=== PATIENT | male | born 1980 | race Caucasian/White ===

== ENCOUNTER 2021-06-28 06:40 | Emergency (ER) | payer MEDICAID, SELFPAY ==
[2021-06-28 06:51] VITALS: BP 152/110; PULSE 73; RESP 16; TEMP 36.9; O2SAT 98; BMI 27.7
--- NOTE | 2021-06-28 07:41 | ED_ITS ---
HPI - General Adult General Chief complaint: General Medical Stated complaint: body aches Time Seen by Provider: 06/28/21 07:37 Source: patient Mode of arrival: ambulatory Limitations: no limitations History of Present Illness MD complaint: body aches, headaches, doesn't feel well Onset (ago): day(s) (1) Radiation: non-radiation Severity: moderate Quality: aching Pain Consistency: constant Relieving factors: none Exacerbating factors: none Associated symptoms: denies other symptoms, headaches and malaise Treatments prior to arrival: other (mucinex) Related Data Previous Rx's Medication Instructions Recorded ondansetron 4 mg disintegrating 4 mg PO Q8H PRN #20 tab 06/28/21 tablet oseltamivir 75 mg capsule (Tamiflu) 75 mg PO BID 5 Days #9 cap 06/28/21 Allergies Allergy/AdvReac Type Severity Reaction Status Date / Time aspirin [ASPIRIN] Allergy Unknown UNSURE OF Unverified 12/19/19 14:59 RX Review of Systems Review of Systems: Constitutional :pos Fever, pos Chills, pos Fatigue, No Malaise ENT/Mouth : No sore throat, No Rhinorrhea Eyes: No Eye Pain, No Swelling, No Redness Cardiovascular : No Chest Pain, No SOB Respiratory : No Cough, No Sputum, No Wheezing Gastrointestinal : No Nausea, No Vomiting, No Diarrhea, No abdominal Pain Genitourinary : No Dysuria, No Urinary Frequency, No Hematuria, Musculoskeletal : No joint pain, pos Myalgias, No Joint Swelling Skin : No Skin Lesions, No rash Neuro : No Weakness, No Numbness, No Dizziness, No Headache Psych : No Anxiety/Panic, No Depression Heme/Lymph: No Bruising, No Bleeding,No Lymphadenopathy Endocrine : No Polyuria, No Polydipsia All other systems reviewed and are negative [facility] Past Medical History Attestation statement: The following information was validated with the patient. Medical History HTN (hypertension) Social History Social History (Updated 06/28/21 @ 08:09 by Mirta Babcock DO) Patient Tobacco Use Status: Never used Tobacco Use of substances other than those prescribed or required for medical reasons: No Advance Directives: No Advance Directives Information Provided: No Physical Exam ED Vital Signs: Vital Signs - 24 hr 06/28/21 06:51 06/28/21 08:04 Temperature 98.5 F 98.1 F Pulse Rate 73 65 Respiratory Rate 16 16 Blood Pressure 152/110 H 153/96 H Pulse Oximetry 98 99 BMI result Body Mass Index 27.7 Appearance: Alert. Oriented X3. No acute distress. Eyes: Pupils equal, round and reactive to light. ENT: Pharynx normal. Neck: Normal inspection. Neck supple. no meningeal signs CVS: Normal heart rate and rhythm. Pulses normal. Respiratory: No respiratory distress. Breath sounds normal. Abdomen: Soft and non-tender. Skin: Skin warm and dry. Normal skin color. Normal skin turgor. Extremities: No lower extremity edema. No calf ttp Neuro: Oriented X 3. No motor deficit. No sensory deficit. Course Course Course Narrative: + for flu - within window will start tamiflu aware of GI side effects patient very upset he is here, his IV is done, states he can do this at home. Medical Decision Making MDM Narrative Medical decision making narrative: 40 yo male hx of HTN here with body aches and just doesn't feel well. Denies sick contacts he is vaccinated against COVID. He denies trauma new medications/drug abuse/insect bites/travel. He just describes a viral like syndrome. At this time will obtain labs, CPK, hydrate, PO tylenol/flexeril, COVID/flu swabs. Dispo per results and findings. Lab Data Result diagrams: 06/28/21 08:16 06/28/21 08:16 Labs: Lab Results 06/28/21 06/28/21 06/28/21 Range/Units 08:16 08:16 08:16 WBC 5.3 (4.8-10.8) X10*3/uL RBC 5.13 (4.60-5.80) X10*6/uL Hgb 15.8 (14.0-18.0) g/dl Hct 44.7 (42.0-52.0) % MCV 87.1 (80.0-98.0) fL MCH 30.8 (27.0-33.0) pg MCHC 35.3 (31.0-36.0) g/dl RDW 12.8 (11.0-16.0) % Plt Count 170 (160-400) X10*3/uL MPV 10.1 (9.4-12.4) fL Immature Gran % (Auto) 0.2 (0.0-0.4) % Neut % (Auto) 65.8 (45-73) % Lymph % (Auto) 17.8 L (20-40) % [place] % (Auto) 14.8 H (2-11) % Eos % (Auto) 0.7 (0-4) % Baso % (Auto) 0.7 (0-2) % Lymph # (Auto) 1.0 L (1.2-4.9) X10*3/uL [place] # (Auto) 0.8 (0.1-1.2) X10*3/uL Eos # (Auto) 0.0 (0.0-0.4) X10*3/uL Baso # (Auto) 0.0 (0.0-0.2) X10*3/uL Abs Immat Gran (auto) 0.01 (0.00-0.03) X10*3/uL Absolute Neuts (auto) 3.5 (2.0-8.3) x10*3/uL Absolute Nucleated RBC 0.000 (0.0-0.012) X10*3/uL Nucleated RBC % (auto) 0.0 (0.0-0.2) /100WBC Sodium 140 (135-145) mmol/L Potassium 3.9 (3.3-5.1) mmol/L Chloride 107 (96-108) mmol/L Carbon Dioxide 26 (22-29) mmol/L Anion Gap 11 L (12-20) BUN 10 (9-16) mg/dL Creatinine 0.97 (0.5-1.4) mg/dL Estim Creat Clear Calc 129.5 Estimated GFR > 60 Random Glucose 94 (60-115) mg/dL Calcium 9.0 (8.4-10.2) mg/dL Magnesium 2.2 (1.6-2.6) mg/dL Total Bilirubin 0.7 (0.0-1.0) mg/dL Direct Bilirubin 0.3 (0.0-0.5) mg/dL AST 26 (5-37) U/L ALT 26 (0-40) U/L Alkaline Phosphatase 62 (39-117) U/L Total Creatine Kinase 149 (38-174) U/L Total Protein 7.2 (6.5-8.0) g/dL Albumin 4.4 (3.5-5.0) g/dL COVID-19 (SUBHASH) Negative (Negative) COVID-19 Clin Com See Note Influenza Type A (SHA) (Negative) Influenza Type B (SHA) (Negative) Influenza A & B Note 06/28/21 Range/Units 08:16 WBC (4.8-10.8) X10*3/uL RBC (4.60-5.80) X10*6/uL Hgb (14.0-18.0) g/dl Hct (42.0-52.0) % MCV (80.0-98.0) fL MCH (27.0-33.0) pg MCHC (31.0-36.0) g/dl RDW (11.0-16.0) % Plt Count (160-400) X10*3/uL MPV (9.4-12.4) fL Immature Gran % (Auto) (0.0-0.4) % Neut % (Auto) (45-73) % Lymph % (Auto) (20-40) % [place] % (Auto) (2-11) % Eos % (Auto) (0-4) % Baso % (Auto) (0-2) % Lymph # (Auto) (1.2-4.9) X10*3/uL [place] # (Auto) (0.1-1.2) X10*3/uL Eos # (Auto) (0.0-0.4) X10*3/uL Baso # (Auto) (0.0-0.2) X10*3/uL Abs Immat Gran (auto) (0.00-0.03) X10*3/uL Absolute Neuts (auto) (2.0-8.3) x10*3/uL Absolute Nucleated RBC (0.0-0.012) X10*3/uL Nucleated RBC % (auto) (0.0-0.2) /100WBC Sodium (135-145) mmol/L Potassium (3.3-5.1) mmol/L Chloride (96-108) mmol/L Carbon Dioxide (22-29) mmol/L Anion Gap (12-20) BUN (9-16) mg/dL Creatinine (0.5-1.4) mg/dL Estim Creat Clear Calc Estimated GFR Random Glucose (60-115) mg/dL Calcium (8.4-10.2) mg/dL Magnesium (1.6-2.6) mg/dL Total Bilirubin (0.0-1.0) mg/dL Direct Bilirubin (0.0-0.5) mg/dL AST (5-37) U/L ALT (0-40) U/L Alkaline Phosphatase (39-117) U/L Total Creatine Kinase (38-174) U/L Total Protein (6.5-8.0) g/dL Albumin (3.5-5.0) g/dL COVID-19 (SUBHASH) (Negative) COVID-19 Clin Com Influenza Type A (SHA) Positive A (Negative) Influenza Type B (SHA) Negative (Negative) Influenza A & B Note See Note Discharge Plan Discharge Clinical Impression: Influenza A Patient Disposition: Home, Self-Care Instructions: Influenza (ED) Additional Instructions: return to ED for any worsening symptoms or concerns tylenol for fevers, stay hydrated Prescriptions: New ondansetron 4 mg tablet,disintegrating 4 mg PO Q8H PRN (Reason: nausea and vomiting) Qty: 20 0RF oseltamivir [Tamiflu] 75 mg capsule 75 mg PO BID 5 Days Qty: 9 0RF Stand Alone Forms: Work/School Release
[2021-06-28 08:04] VITALS: BP 153/96; PULSE 65; RESP 16; TEMP 36.7; O2SAT 99
[2021-06-28] MEDS: Acetaminophen 325 MG TABLET 650 MG PO (08:21)
[2021-06-28] MEDS: Cyclobenzaprine HCl 10 MG TABLET PO (08:22)
[2021-06-28] MEDS: 0.9 % Sodium Chloride 1,000 ML 999 ML IVCONT (08:22)
[2021-06-28 08:26] LABS: MANUAL DIFF FLAG NO
[2021-06-28 08:29] LABS: Basophils Percent Auto 0.7 % (0-2); Eosinophils Percent Auto 0.7 % (0-4); Hematocrit 44.7 % (42.0-52.0); Hemoglobin 15.8 g/dl (14.0-18.0); Imm Gran Abs Auto 0.01 X10*3/uL (0.00-0.03); Imm Gran Pct Auto 0.2 % (0.0-0.4); Lymphocytes Percent Auto 17.8 % (20-40); Mean Corpuscular HGB Conc 35.3 g/dl (31.0-36.0); Mean Corpuscular Hemoglobin 30.8 pg (27.0-33.0); Mean Corpuscular Volume 87.1 fL (80.0-98.0); Mean Platelet Volume 10.1 fL (9.4-12.4); Monocytes Absolute Auto 0.8 X10*3/uL (0.1-1.2); Monocytes Percent Auto 14.8 % (2-11); Neutrophils Absolute Auto 3.5 x10*3/uL (2.0-8.3); Neutrophils Percent Auto 65.8 % (45-73); Platelet Count 170 X10*3/uL (160-400); Red Blood Count 5.13 X10*6/uL (4.60-5.80); Red Cell Distribution Width 12.8 % (11.0-16.0); White Blood Count 5.3 X10*3/uL (4.8-10.8)
[2021-06-28 08:42] LABS: IDNOW Serial# 08D9AD1C; Influenza A Positive (Negative); Influenza B2 Negative (Negative)
[2021-06-28 08:47] LABS: COVID-19 Test Negative (Negative); IDNOW Serial# 16C4AD1C
[2021-06-28 08:49] LABS: Alanine Aminotransferase 26 U/L (0-40); Albumin Level 4.4 g/dL (3.5-5.0); Alkaline Phosphatase 62 U/L (39-117); Anion Gap 11 (12-20); Aspartate Amino Transferase 26 U/L (5-37); Bilirubin Direct 0.3 mg/dL (0.0-0.5); Bilirubin Total 0.7 mg/dL (0.0-1.0); Blood Urea Nitrogen 10 mg/dL (9-16); Carbon Dioxide 26 mmol/L (22-29); Chloride 107 mmol/L (96-108); Creatinine Clr Calc Pharmacy 129.5; Estimated Glomerular Filt Rate > 60; Glucose Random 94 mg/dL (60-115); Magnesium 2.2 mg/dL (1.6-2.6); Potassium 3.9 mmol/L (3.3-5.1); Sodium 140 mmol/L (135-145); Total Protein 7.2 g/dL (6.5-8.0)
[2021-06-28] MEDS: Oseltamivir Phosphate 75 MG CAPSULE PO (10:06)
== END 2021-06-28 10:33 | disposition home or self-care (01) ==
PROVIDERS: Emergency Provider Emergency Medicine
DX: J11.1 Influenza due to unidentified influenza virus with other respiratory manifestations (principal); R51.9 Headache, unspecified; Z20.822 Contact with and (suspected) exposure to COVID-19
CPT/HCPCS: 80048; 80076; 82550; 83735; 85025; 87502; 87635; 96360; 99284

== ENCOUNTER → 2021-09-17 13:04 | Outpatient (BNVA) | payer SELFPAY | PROVIDERS: Visit Provider Internal Medicine | DX: Z02.79 Encounter for issue of other medical certificate (principal) ==

== ENCOUNTER 2021-11-26 06:45 | Emergency (ER) | payer MEDICAID, SELFPAY ==
[2021-11-26 07:48] VITALS: BP 142/92; PULSE 69; RESP 18; TEMP 36.6; O2SAT 98; BMI 28.7
--- NOTE | 2021-11-26 08:08 | ED.ALLEREA ---
HPI - Allergic Reaction General Chief complaint: Allergic Reaction Stated complaint: multiple bee stings, yesterday Time Seen by Provider: 11/26/21 08:01 Source: patient Mode of arrival: ambulatory Limitations: no limitations History of Present Illness MD complaint: allergic reaction and other (multiple bee stings) Onset (ago): day(s) (happened yesterday) Exposure: insect bite Symptoms: rash and itching Severity: moderate Treatment prior to arrival: benadryl Previous Allergic Reaction History: none Related Data Previous Rx's Medication Instructions Recorded ondansetron 4 mg disintegrating 4 mg PO Q8H PRN nausea and 06/28/21 tablet vomiting #20 tabs oseltamivir 75 mg capsule (Tamiflu) 75 mg PO BID 5 days #9 caps 06/28/21 prednisone 20 mg tablet 40 mg PO DAILY 5 days #10 tabs 11/26/21 Allergies Allergy/AdvReac Type Severity Reaction Status Date / Time aspirin [ASPIRIN] Allergy Unknown UNSURE OF Unverified 12/19/19 14:59 RX Review of Systems Review of Systems: Constitutional : No Fever, No Chills ENT/Mouth : no oral swelling, No Hoarseness, No Swallowing Difficulty Eyes: No Eye Pain, No Swelling, No Redness Cardiovascular : No Chest Pain, No SOB Respiratory : No Cough, No Sputum, No Wheezing, posure, No Dyspnea Gastrointestinal : No Nausea, No Vomiting, No Diarrhea, No abdominal Pain Genitourinary : No Dysuria, No Urinary Frequency, No Hematuria Musculoskeletal : No joint pain, No Myalgias, No Joint Swelling Skin : No Skin Lesions, positive rash Neuro : No Weakness, No Numbness, No Headache Psych : No Anxiety/Panic, No Depression [facility] Past Medical History Medical History HTN (hypertension) Social History Social History Patient Tobacco Use Status: Never used Tobacco Advance Directives: No Advance Directives Information Provided: No Physical Exam ED Vital Signs: Vital Signs - 24 hr 11/26/21 07:48 Temperature 97.9 F Pulse Rate 69 Respiratory Rate 18 Blood Pressure 142/92 H Pulse Oximetry 98 Oxygen Delivery Method Room Air BMI result Body Mass Index 28.7 Appearance: Alert. Oriented X3. No acute distress. Eyes: Pupils equal, round and reactive to light. ENT: Pharynx normal. Neck: Normal inspection. Neck supple. CVS: Normal heart rate and rhythm. Pulses normal. Respiratory: No respiratory distress. Breath sounds normal. Abdomen: Soft and nontender. Skin: Skin warm and dry. Normal skin color. both legs and arms areas of raised edematous localized reaction no redness no warmth - no signs of infection Extremities: No lower extremity edema. No calf ttp Neuro: Oriented X 3. No motor deficit. No sensory deficit. MDM - Allergic Reaction MDM Narrative Medical decision making narrative: 40 yo male with HTN here with localized reaction to bee sting - no signs of anaphylaxis will start on prednisone and send home with precautions. Not toxic appearing. Discharge Plan Discharge Clinical Impression: Allergic reaction Qualifiers: Encounter type: initial encounter Qualified Code(s): T78.40XA - Allergy, unspecified, initial encounter Patient Disposition: Home, Self-Care Instructions: General Allergic Reaction (ED) Additional Instructions: return to ED for any worsening symptoms or concerns Prescriptions: New prednisone 20 mg tablet 40 mg PO DAILY 5 Days Qty: 10 0RF No Action ondansetron 4 mg tablet,disintegrating 4 mg PO Q8H PRN (Reason: nausea and vomiting) Qty: 20 0RF oseltamivir [Tamiflu] 75 mg capsule 75 mg PO BID 5 Days Qty: 9 0RF Stand Alone Forms: Work/School Release
== END 2021-11-26 08:23 | disposition home or self-care (01) ==
PROVIDERS: Emergency Provider Emergency Medicine
DX: L50.9 Urticaria, unspecified (principal)
CPT/HCPCS: 99282; 99283

== ENCOUNTER 2022-02-17 06:54 | Emergency (ER) | payer MEDICAID, SELFPAY ==
[2022-02-17 07:05] VITALS: BP 146/88; PULSE 74; RESP 18; TEMP 36.9; O2SAT 98; BMI 27.7
--- NOTE | 2022-02-17 08:54 | ED.GENADULT ---
HPI - General Adult General Chief complaint: Nausea/Vomiting/Diarrhea Stated complaint: vomiting Time Seen by Provider: 02/17/22 08:49 Source: patient Limitations: no limitations History of Present Illness HPI narrative: Patient presents to the ER complaining of nausea vomiting some slight diarrhea since yesterday. Multiple episodes of nausea vomiting. Patient has a history of a cholecystectomy in the past. Patient takes no prescribed medication. Patient does admit to smoking marijuana recreationally and denies similar symptoms in the past. No known sick contacts symptoms moderate. Patient is without any real abdominal pain at this time. Patient states he feels slightly achy but does not feel like he has the flu. No recent travel history no other complaints at this time. Related Data Previous Rx's Medication Instructions Recorded ondansetron 4 mg disintegrating 4 mg PO Q8H PRN nausea and 06/28/21 tablet vomiting #20 tabs oseltamivir 75 mg capsule (Tamiflu) 75 mg PO BID 5 days #9 caps 06/28/21 prednisone 20 mg tablet 40 mg PO DAILY 5 days #10 tabs 11/26/21 ondansetron 4 mg disintegrating 4 mg PO Q6H PRN nausea and 02/17/22 tablet vomiting #14 tabs Allergies Allergy/AdvReac Type Severity Reaction Status Date / Time aspirin [ASPIRIN] Allergy Unknown UNSURE OF Unverified 12/19/19 14:59 RX Review of Systems Constitutional: Constitutional: Reports chills, Denies fever(s) and Denies headache(s) Eyes: Eyes: Denies change in vision and Denies loss of vision ENT: Denies headache(s) and Denies sore throat Cardiovascular: Cardiovascular: Denies chest pain, Denies syncope and Denies dyspnea Respiratory: Respiratory: Denies chest congestion, Denies cough and Denies dyspnea Gastrointestinal: Gastrointestinal: Reports as per HPI, Reports diarrhea, Reports nausea and Reports vomiting Genitourinary: Genitourinary: Reports no additional male genitourinary complaints Musculoskeletal: Musculoskeletal: Denies back pain, Denies muscle cramps and Denies muscle weakness Neurologic: Denies syncope, Denies headache(s), Denies focal weakness and Denies loss of vision Psychiatric: Psychiatric: Reports no additional psychiatric complaints PMFSH Past Medical History Medical History HTN (hypertension) Social History Social History Patient Tobacco Use Status: Never used Tobacco Advance Directives: No Advance Directives Information Provided: No Physical Exam ED Vital Signs: Vital Signs - 24 hr 02/17/22 07:05 Temperature 98.5 F Pulse Rate 74 Respiratory Rate 18 Blood Pressure 146/88 H Pulse Oximetry 98 Oxygen Delivery Method Room Air BMI result Body Mass Index 27.7 vital signs have been reviewed as normal and appeared to be correct. Blood pressure normal. Heart rate normal. Respiration rate normal. Temperature normal. Oxygen saturation normal. Appearance: Alert. Oriented X3. No acute distress. Head: Normal external exam. Normocephalic. Atraumatic. Eyes: PERRLA. EOMI. Conjunctiva and sclera normal. Eyelids normal. ENT: Pharynx normal. Uvula midline. Mucosa slightly dry. Neck: Soft full range of motion, no JVD CVS: Heart regular rate and rhythm no murmurs and rubs Respiratory: Breath sounds are clear to auscultation bilaterally. No accessory muscle use noted. Abdomen: Abdomen soft no rebound or guarding positive bowel sounds Back: No CVA tenderness. Full range of motion noted. Skin: Skin warm and dry. Normal skin color. Normal skin turgor. No rashes/lesions/lacerations noted. Extremities: No lower extremity edema. Extremities exhibit normal range of motion. Extremities nontender. Neuro: Oriented X 3. No motor deficit. No sensory deficit. Reflexes normal. Course Course Course Narrative: Nausea vomiting Dehydration Marijuana hyperemesis Viral gastritis Viral syndrome 08:59 CBC CMP lipase pending 1000 mL normal saline IV bolus 4 mg Zofran IV 41-year-old male experience nausea vomiting patient denies any abdominal pain at this time on re-evaluation. Case discussed at length with patient patient advised to decrease marijuana use will place patient on antiemetic at home. Patient states slight improvement of symptoms no other complaints at this time. Medications Administered Discontinued Medications Generic Name Dose Route Start Last Admin Trade Name Freq PRN Reason Stop Dose Admin Sodium Chloride 1,000 mls @ 999 mls/hr 02/17/22 09:00 02/17/22 09:51 Ns IV 02/17/22 10:00 999 mls/hr .Q1H1M JAILYN Administration Ondansetron HCl 4 mg 02/17/22 08:54 02/17/22 09:51 Ondansetron Hcl 4 Mg/2 Ml Vial IVPUSH 02/17/22 08:55 4 mg ONCE ONE Administration Medical Decision Making Lab Data Result diagrams: 02/17/22 09:50 02/17/22 09:50 Labs: Lab Results 02/17/22 02/17/22 Range/Units 09:50 09:50 WBC 8.7 (4.8-10.8) X10*3/uL RBC 5.08 (4.60-5.80) X10*6/uL Hgb 15.5 (14.0-18.0) g/dl Hct 44.5 (42.0-52.0) % MCV 87.6 (80.0-98.0) fL MCH 30.5 (27.0-33.0) pg MCHC 34.8 (31.0-36.0) g/dl RDW 12.6 (11.0-16.0) % Plt Count 205 (160-400) X10*3/uL MPV 10.2 (9.4-12.4) fL Immature Gran % (Auto) 0.2 (0.0-0.4) % Neut % (Auto) 71.5 (45-73) % Lymph % (Auto) 15.5 L (20-40) % [place] % (Auto) 12.4 H (2-11) % Eos % (Auto) 0.2 (0-4) % Baso % (Auto) 0.2 (0-2) % Lymph # (Auto) 1.4 (1.2-4.9) X10*3/uL [place] # (Auto) 1.1 (0.1-1.2) X10*3/uL Eos # (Auto) 0.0 (0.0-0.4) X10*3/uL Baso # (Auto) 0.0 (0.0-0.2) X10*3/uL Abs Immat Gran (auto) 0.02 (0.00-0.03) X10*3/uL Absolute Neuts (auto) 6.2 (2.0-8.3) x10*3/uL Absolute Nucleated RBC 0.000 (0.0-0.012) X10*3/uL Nucleated RBC % (auto) 0.0 (0.0-0.2) /100WBC Sodium 139 (135-145) mmol/L Potassium 4.3 (3.3-5.1) mmol/L Chloride 106 (96-108) mmol/L Carbon Dioxide 21 L (22-29) mmol/L Anion Gap 16 (12-20) BUN 16 D (9-16) mg/dL Creatinine 0.96 (0.5-1.4) mg/dL Estim Creat Clear Calc 129.5 Estimated GFR > 60 Random Glucose 111 (60-115) mg/dL Calcium 9.2 (8.4-10.2) mg/dL Total Bilirubin 1.1 H (0.0-1.0) mg/dL AST 27 (5-37) U/L ALT 20 (0-40) U/L Alkaline Phosphatase 54 (39-117) U/L Total Protein 7.6 (6.5-8.0) g/dL Albumin 4.5 (3.5-5.0) g/dL Lipase 7 L (8-78) U/L Discharge Plan Discharge Clinical Impression: Gastroenteritis Patient Disposition: Home, Self-Care Instructions: Acute Nausea and Vomiting (ED) Additional Instructions: Is recommended to avoid marijuana use as a kid causes nausea vomiting [place] diet increase fluids rest The lab work is within normal limits Medications as directed Prescriptions: New ondansetron 4 mg tablet,disintegrating 4 mg PO Q6H PRN (Reason: nausea and vomiting) Qty: 14 0RF No Action ondansetron 4 mg tablet,disintegrating 4 mg PO Q8H PRN (Reason: nausea and vomiting) Qty: 20 0RF oseltamivir [Tamiflu] 75 mg capsule 75 mg PO BID 5 Days Qty: 9 0RF prednisone 20 mg tablet 40 mg PO DAILY 5 Days Qty: 10 0RF
[2022-02-17] MEDS: 0.9 % Sodium Chloride 1,000 ML 999 ML IV (09:51)
[2022-02-17] MEDS: ondansetron HCL 4 MG/2 ML VIAL IVPUSH (09:51)
[2022-02-17 10:04] LABS: MANUAL DIFF FLAG NO
[2022-02-17 10:07] LABS: Basophils Percent Auto 0.2 % (0-2); Eosinophils Percent Auto 0.2 % (0-4); Hematocrit 44.5 % (42.0-52.0); Hemoglobin 15.5 g/dl (14.0-18.0); Imm Gran Abs Auto 0.02 X10*3/uL (0.00-0.03); Imm Gran Pct Auto 0.2 % (0.0-0.4); Lymphocytes Absolute Auto 1.4 X10*3/uL (1.2-4.9); Lymphocytes Percent Auto 15.5 % (20-40); Mean Corpuscular HGB Conc 34.8 g/dl (31.0-36.0); Mean Corpuscular Hemoglobin 30.5 pg (27.0-33.0); Mean Corpuscular Volume 87.6 fL (80.0-98.0); Mean Platelet Volume 10.2 fL (9.4-12.4); Monocytes Absolute Auto 1.1 X10*3/uL (0.1-1.2); Monocytes Percent Auto 12.4 % (2-11); Neutrophils Absolute Auto 6.2 x10*3/uL (2.0-8.3); Neutrophils Percent Auto 71.5 % (45-73); Platelet Count 205 X10*3/uL (160-400); Red Blood Count 5.08 X10*6/uL (4.60-5.80); Red Cell Distribution Width 12.6 % (11.0-16.0); White Blood Count 8.7 X10*3/uL (4.8-10.8)
[2022-02-17 10:30] LABS: Alanine Aminotransferase 20 U/L (0-40); Albumin Level 4.5 g/dL (3.5-5.0); Alkaline Phosphatase 54 U/L (39-117); Anion Gap 16 (12-20); Aspartate Amino Transferase 27 U/L (5-37); Bilirubin Total 1.1 mg/dL (0.0-1.0); Blood Urea Nitrogen 16 mg/dL (9-16); Calcium 9.2 mg/dL (8.4-10.2); Carbon Dioxide 21 mmol/L (22-29); Chloride 106 mmol/L (96-108); Creatinine Clr Calc Pharmacy 129.5; Estimated Glomerular Filt Rate > 60; Glucose Random 111 mg/dL (60-115); Lipase 7 U/L (8-78); Potassium 4.3 mmol/L (3.3-5.1); Sodium 139 mmol/L (135-145); Total Protein 7.6 g/dL (6.5-8.0)
== END 2022-02-17 11:08 | disposition home or self-care (01) ==
PROVIDERS: Physician Assistant; Emergency Provider Emergency Medicine Emergency Medical Services
DX: K52.9 Noninfective gastroenteritis and colitis, unspecified (principal); R11.2 Nausea with vomiting, unspecified; Z79.899 Other long term (current) drug therapy
CPT/HCPCS: 36415; 80053; 83690; 85025; 96361; 96374; 99283; 99284; J2405

== ENCOUNTER 2022-10-10 15:30 | Outpatient (AMB) | payer MEDICAID, SELFPAY ==
[2022-10-10 15:31] VITALS: BP 123/69; PULSE 74; BMI 28.8
--- NOTE | 2022-10-10 15:31 | MHC.OFFVIS ---
Intake Vital Signs 10/10/22 15:31 Height 6 ft 6 in Weight 249 lb BMI 28.8 BP 123/69 Blood Pressure Location Rt brachial Position Sitting Pulse 74 Intake Visit Reasons: Hemorrhoids Intake Note: This patient presents for an assessment for hemorrhoids. Patient c/o; denies rectal bleeding, denies rectal pain, spicy foods trigger symptoms, Hx IBS. Rn Rehab Required: No Accompanied by: Self / Same As Patient Allergies aspirin [ASPIRIN] Allergy (Unknown, Unverified 10/10/22 15:37) UNSURE OF RX Medication List - Last Reconciled 10/10/22 by Kwan Brock MD amlodipine 10 mg PO QAM cetirizine 10 mg PO QAM chlorthalidone 25 mg PO QAM dicyclomine 10 mg PO QID hydrochlorothiazide 12.5 mg PO QAM hydrocortisone 2.5% LA BID omeprazole 40 mg PO QAM ondansetron 4 mg PO Q8H PRN ondansetron 4 mg PO Q6H PRN oseltamivir (Tamiflu) 75 mg PO BID 5 days prednisone 40 mg (2 x 20 mg) PO DAILY 5 days HPI Hemorrhoids HPI Details 41-year-old male referred for hemorrhoid issues. He says that says the past 2 years now, he has been having alternating diarrhea and constipation. He says that this started after he had gallbladder surgery. He says that occasionally, whenever he has constipation, he would sit in the bathroom for prolonged periods of time and then he would notice that his hemorrhoids would ?come out?. He denies any pain but he says that this may be uncomfortable at times when he denies any bleeding. [facility] Medical History (Updated 10/10/22 @ 16:07 by Kwan Brock MD) Hemorrhoids that prolapse with straining, but retract spontaneously HTN (hypertension) Surgical History History of cholecystectomy History of surgery of head Family History Maternal Uncle Stomach cancer Paternal Grandfather Colon cancer Social History Patient Tobacco Use Status: Never used Tobacco Review of Systems Const Denies chills and Denies fever(s) Card Denies chest pain, Denies dyspnea and Denies dyspnea on exertion Resp Denies cough, Denies dyspnea and Denies dyspnea on exertion GI Denies hematochezia, Denies change in bowel habits, Reports constipation and Reports diarrhea Denies hematuria and Denies difficulty urinating Musc Denies back pain and Denies limited range of motion Neuro Denies focal weakness and Denies convulsions Psych Denies depression and Denies mood swings Physical Exam Vital Signs: Last Vital Signs Pulse 74 10/10/22 15:31 BP 123/69 10/10/22 15:31 BMI result Body Mass Index 28.8 Const General: comfortable and no acute distress Orientation/consciousness: patient oriented x3 Neck Neck: Yes no lymphadenopathy Resp Auscultation: clear to auscultation bilaterally Cardio Rhythm: regular rhythm GI Other: Rectal exam - external hemorrhoids on the right with some chronic thrombosis, left buttock elevated, well defined skin lesion, about 0.5 cm, appears to be fibromatous; I attempted to do an anoscopic exam but he was unable to tolerate this because of discomfort Palpation (GI): Soft to palpation, nontender and no guarding Neuro General: patient oriented x3 Assessment & Plan Assessment & Plan (1) Hemorrhoids that prolapse with straining, but retract spontaneously: Code(s): K64.1 - Second degree hemorrhoids Plan: He describes what appears to be prolapsing hemorrhoids with constipation. He says that the hemorrhoids reduce on their own. He denies pain but says that this hemorrhoids can be annoying whenever there prolapse. He is unable to tolerate anoscopic exam. I explained to him that control of his constipation will probably be the important 1st step at this point. He has had been constipation for the past 2 years and sees a account installation specialist. I explained to him that he should continue following up with his account installation specialist to have good control of his bowel movements. In the meantime I had advised him to take fiber supplementation with Metamucil which she says he is familiar with. I told him that he should see me in the office again down the line if his symptoms seem to be more problematic or if he feels ready to undergo anoscopic exam. He is comfortable with the plan. He understands the option of hemorrhoidectomy for severe symptoms. He says that he does not want to proceed with this for now. Coding Level of Care Code New Pt Level 3 (00648) Diagnoses Hemorrhoids that prolapse with straining, but retract spontaneously K64.1
== END 2022-10-10 16:03 | disposition home or self-care (01) ==
PROVIDERS: PCP Internal Medicine; Referring Provider Internal Medicine; Visit Provider Surgery
DX: K64.1 Second degree hemorrhoids (principal)
CPT/HCPCS: 99203

== ENCOUNTER → 2022-10-10 15:30 | Outpatient (BNVA) | payer MEDICAID, SELFPAY | PROVIDERS: PCP Internal Medicine; Referring Provider Internal Medicine; Visit Provider Surgery | DX: K64.1 Second degree hemorrhoids (principal); I10 Essential (primary) hypertension; Z90.49 Acquired absence of other specified parts of digestive tract; Z79.52 Long term (current) use of systemic steroids; Z79.899 Other long term (current) drug therapy | CPT/HCPCS: 99202 ==

== ENCOUNTER 2022-12-29 16:34 | Outpatient (REF) | payer MEDICAID, SELFPAY ==
--- NOTE | ~2022-12-29 | US_ITS ---
EXAMINATION: US RETROPERITONEAL LIMITED (RENAL ONLY) CLINICAL INFORMATION: Right flank pain. COMPARISON: CT abdomen and pelvis 06/13/2022. TECHNIQUE: Real-time imaging of the kidneys. FINDINGS: RIGHT KIDNEY: 12.7 x 4.5 x 5.4 cm (SAG x AP x TRV). The kidney is normal in size, contour, and echogenicity. Renal cortical thickness is normal. No calculi or focal parenchymal lesions. No hydronephrosis. LEFT KIDNEY: 11.3 x 5.9 x 5.9 cm (SAG x AP x TRV). The kidney is normal in size, contour, and echogenicity. Renal cortical thickness is normal. No calculi or focal parenchymal lesions. No hydronephrosis. US/US renal BI IMPRESSION: Unremarkable examination..
== END 2022-12-29 16:35 | disposition home or self-care (01) ==
LOC: HO.US 16:34
PROVIDERS: PCP Internal Medicine; Visit Provider Internal Medicine
DX: R10.9 Unspecified abdominal pain (principal)
CPT/HCPCS: 76775

== ENCOUNTER 2023-11-23 15:26 | Outpatient (REF) | payer MEDICAID, SELFPAY ==
[2023-11-23 17:31] LABS: MANUAL DIFF FLAG NO
[2023-11-23 17:48] LABS: Basophils Percent Auto 0.7 % (0-2); Eosinophils Absolute Auto 0.3 X10*3/uL (0.0-0.4); Eosinophils Percent Auto 5.3 % (0-4); Hematocrit 39.3 % (42.0-52.0); Hemoglobin 13.8 g/dl (14.0-18.0); Imm Gran Abs Auto 0.02 X10*3/uL (0.00-0.03); Imm Gran Pct Auto 0.4 % (0.0-0.4); Lymphocytes Absolute Auto 1.9 X10*3/uL (1.2-4.9); Lymphocytes Percent Auto 35.2 % (20-40); Mean Corpuscular HGB Conc 35.1 g/dl (31.0-36.0); Mean Corpuscular Hemoglobin 31.2 pg (27.0-33.0); Mean Corpuscular Volume 88.9 fL (80.0-98.0); Mean Platelet Volume 10.4 fL (9.4-12.4); Monocytes Absolute Auto 0.6 X10*3/uL (0.1-1.2); Monocytes Percent Auto 10.7 % (2-11); Neutrophils Absolute Auto 2.6 x10*3/uL (2.0-8.3); Neutrophils Percent Auto 47.7 % (45-73); Platelet Count 246 X10*3/uL (160-400); Red Blood Count 4.42 X10*6/uL (4.60-5.80); Red Cell Distribution Width 13.1 % (11.0-16.0); White Blood Count 5.5 X10*3/uL (4.8-10.8)
[2023-11-23 17:53] LABS: Rheumatoid Factor < 13.0 IU/mL (<15.0)
[2023-11-23 18:00] LABS: Alanine Aminotransferase 16 U/L (0-40); Albumin Level 4.3 g/dL (3.5-5.0); Alkaline Phosphatase 57 U/L (39-117); Anion Gap 11 (12-20); Aspartate Amino Transferase 25 U/L (5-37); Bilirubin Total 0.7 mg/dL (0.0-1.0); Blood Urea Nitrogen 17 mg/dL (9-16); C Reactive Protein < 0.10 mg/dL (< or = 0.50); Calcium 9.4 mg/dL (8.4-10.2); Carbon Dioxide 26 mmol/L (22-29); Chloride 108 mmol/L (96-108); Cholesterol 203 mg/dL (<200); Estimated Glomerular Filt Rate > 60; Glucose Random 103 mg/dL (60-115); HDL Cholesterol 48 mg/dL (>40); LDL Cholesterol Calculated 129 mg/dL (<100); Potassium 3.3 mmol/L (3.3-5.1); Sodium 142 mmol/L (135-145); Total Protein 7.1 g/dL (6.5-8.0); Triglycerides 134 mg/dL (<150)
[2023-11-23 18:16] LABS: TSH reflex Free T4 0.97 uIU/mL (0.32-4.0); Vitamin D 25-OH Total 34.4 ng/mL (>30)
[2023-11-23 20:27] LABS: Erythrocyte Sedimentation Rate 5 MM/HR (0-15)
[2023-11-24 08:22] LABS: HIV AB/AG Nonreactive (Nonreactive); HIV Num 1 0.05 S/CO (0.00-0.99)
[2023-11-29 10:57] LABS: Cyclic Citrullinated Peptide <16 UNITS
== END 2023-11-23 15:27 | disposition home or self-care (01) ==
LOC: HO.CHCLDS 15:26
PROVIDERS: Visit Provider Internal Medicine
DX: I10 Essential (primary) hypertension (principal); M25.541 Pain in joints of right hand; M25.542 Pain in joints of left hand
CPT/HCPCS: 36415; 80053; 80061; 82306; 84443; 85025; 85652; 86140; 86200; 86431; 87389

== ENCOUNTER 2024-04-01 15:06 | Outpatient (AMB) | payer OTHER, SELFPAY ==
--- NOTE | 2024-04-01 15:10 | MHC.OFFVIS ---
Vital Signs 04/01/24 15:11 Height 6 ft 6 in Weight 257 lb 15.053 oz BMI 29.8 BP 140/78 H Blood Pressure Location Lt brachial Position Sitting Pulse 66 Pulse Source Pulse Oximeter Pulse Oximetry (%) 97 Oxygen Delivery Method Room Air Intake Visit Reasons: Gastroesophageal reflux disease (GERD) Intake Note: NEW PATIENT Reason; scheduled in office initial assessment - GERD Prior hx of colo/egd? Prev EGD as of 5-6 years ago. [place] [facility] Concerns/Questions? No significant concerns. Fmhx (maternal uncle - stomach CA) Pharmacy verified? [facility] Discharge Coordinator Required: No Allergies aspirin [ASPIRIN] Allergy (Unknown, Verified 04/01/24 15:10) UNSURE OF RX HPI HPI Gastroesophageal reflux disease (GERD): Details: 43-year-old male with past medical history of hypertension, GERD, history of cholecystectomy is here today for initial consultation. Patient has been experiencing epigastric pain postprandially. He is currently taking omeprazole. Has been on it for quite some time. Symptoms are suppressed for the most part, however when he does eats something with red sauce or spicy he will have symptoms of epigastric pain and acid reflux. Patient denies any nausea or vomiting. Does not remember if he was ever tested for H pylori. Patient also reports postprandial abdominal bloating and cramping. Patient noticed symptoms of bloating and cramping are worse after his cholecystectomy about 4 years ago or so. Patient also reports that he has to watch what he is eating. [facility] Medical History Hemorrhoids that prolapse with straining, but retract spontaneously HTN (hypertension) Surgical History History of cholecystectomy History of surgery of head Family History Maternal Uncle Stomach cancer Paternal Grandfather Colon cancer Social History Patient Tobacco Use Status: Never used Tobacco Review of Systems Const Denies weight gain and Denies weight loss ENT Reports no additional complaints, Denies dysphagia and Denies odynophagia Card Reports no additional complaints Resp Reports no additional complaints GI Reports abdominal pain (epigastric), Denies belching, Denies melena, Reports bloating, Denies change in bowel habits, Denies dysphagia, Denies excessive flatus, Reports dyspepsia, Reports heartburn, Denies diarrhea, Denies loose stools, Denies nausea, Denies odynophagia and Denies vomiting Reports no additional complaints Musc Reports no additional complaints Neuro Reports no additional complaints Psych Reports no additional complaints Endo Reports no additional complaints Physical Exam Const General: healthy appearing, no acute distress and well developed Nutritional Appearance: well nourished Orientation/consciousness: patient oriented x3 Resp Effort & Inspection: normal respiratory effort, able to speak in complete sentences, no tracheal deviation and symmetric chest movement Auscultation: clear to auscultation bilaterally Cardio Rate: regular rate GI Inspection: Yes normal to inspection and No distended Palpation (GI): Soft to palpation, not firm, nontender and No hepatosplenomegaly present Auscultation: normal bowel sounds General: Yes no CVA tenderness Back/Spine/Pelvis Back: no CVA tenderness Skin General skin exam: elasticity normal, turgor normal and dry skin Neuro General: patient oriented x3 Psych Appearance: grossly normal Mental Status: mental status grossly normal Assessment & Plan Assessment & Plan (1) Postprandial epigastric pain: Code(s): R10.13 - Epigastric pain (2) GERD (gastroesophageal reflux disease): Code(s): K21.9 - Gastro-esophageal reflux disease without esophagitis Qualifiers: Esophagitis presence: esophagitis presence not specified Qualified Code(s): K21.9 - Gastro-esophageal reflux disease without esophagitis Plan Patient will stop taking omeprazole and will start taking famotidine twice a day. Stop famotidine 24-48 hours before come in for H pylori testing. Will treat him empirically if positive. Patient will eventually go for upper endoscopy. Will check lipase and transglutaminase to rule out pancreatitis and celiac. Patient will follow-up in 2 months, sooner on as needed basis. He is agreeable to this plan and verbalizes understanding of instructions. He was given the opportunity to ask questions and all questions answered. Thank you for allowing me to participate in his care Orders: Orders Lipase Today R10.9 - Unspecified abdominal pain H Pylori Breath Test Today K21.9 - Gastro-esophageal reflux disease without esophagitis Transglutaminase IgA Today R10.9 - Unspecified abdominal pain Medications: New famotidine (Pepcid) 20 mg PO BID 40 tabs 0RF K29.70 - Gastritis, unspecified, without bleeding Coding Level of Care Code New Pt Level 3 (06410) Diagnoses Postprandial epigastric pain R10.13 Gastroesophageal reflux disease, unspecified whether esophagitis present K21.9 Esophagitis presence: esophagitis presence not specified Time Spent (min) 40 Comment 30 minutes spent with patient and additional 10 minutes spent reviewing his records
[2024-04-01 15:11] VITALS: BP 140/78; PULSE 66; O2SAT 97; BMI 29.8
== END 2024-04-01 15:50 | disposition home or self-care (01) ==
PROVIDERS: PCP Internal Medicine; Visit Provider Nurse Practitioner Family
DX: R10.13 Epigastric pain (principal); K21.9 Gastro-esophageal reflux disease without esophagitis
CPT/HCPCS: 99203

== ENCOUNTER → 2024-04-01 15:06 | Outpatient (BNVA) | payer OTHER, SELFPAY | PROVIDERS: PCP Internal Medicine; Visit Provider Nurse Practitioner Family | DX: R10.13 Epigastric pain (principal); K21.9 Gastro-esophageal reflux disease without esophagitis; Z80.0 Family history of malignant neoplasm of digestive organs; Z90.49 Acquired absence of other specified parts of digestive tract | CPT/HCPCS: 99202 ==

== ENCOUNTER 2024-04-16 15:22 | Outpatient (AMB) | payer OTHER, SELFPAY ==
--- NOTE | 2024-04-16 15:37 | AM.OFFVISNUR ---
Intake Visit Reasons: H Pylori BT - Omeprazole HELD Allergies aspirin [ASPIRIN] Allergy (Unknown, Verified 04/01/24 15:10) UNSURE OF RX Nursing Note Patient presents for collection of H Pylori breath test. Patient has been fasting for 1 hour (nothing to eat, drink, no chewing gum or smoking) has not taken any antacid medication for at least 2 weeks and has no allergies to artificial sweeteners.?? Assessment & Plan Assessment & Plan (1) GERD (gastroesophageal reflux disease): Code(s): K21.9 - Gastro-esophageal reflux disease without esophagitis Plan Patient presents for collection of H Pylori breath test. Patient has been fasting for 1 hour (nothing to eat, drink, no chewing gum or smoking) has not taken any antacid medication for at least 2 weeks and has no allergies to artificial sweeteners.???This test checks for an overgrowth of bacteria in your stomach. We all have bacteria but some may have more than others. It is treatable. if the test comes back negative there is nothing else to do. If the test result is positive we will treat you with 2 antibiotics and a medication to decrease the acid in your stomach (PPI) for 2 weeks. Two weeks after you have completed the treatment we will retest you to make sure the overgrowth has resolved. Patient Instructions: Process for specimen collection and reason for testing was explained to the patient. Specimen collection. Patient instructed to take a deep breath and then exhale into the blue bag, filling it up as much as possible. Patient instructed to drink a mixture of water and the artificial sweetener with a straw. A 15 minute wait period was observed. Patient instructed to take a deep breath and then exhale into the pink bag, filling it up as much as possible.??
== END 2024-04-16 15:42 | disposition home or self-care (01) ==
PROVIDERS: PCP Internal Medicine; Visit Provider Nurse Practitioner Family
DX: K21.9 Gastro-esophageal reflux disease without esophagitis (principal)

== ENCOUNTER 2024-04-16 15:22 | Outpatient (REF) | payer OTHER, SELFPAY ==
[2024-04-19 14:26] LABS: H Pylori Breath Test Negative (Negative)
== END 2024-04-16 15:23 | disposition home or self-care (01) ==
LOC: HO.LNP 15:22
PROVIDERS: PCP Internal Medicine; Visit Provider Nurse Practitioner Family
DX: K21.9 Gastro-esophageal reflux disease without esophagitis (principal)
CPT/HCPCS: 83013; 99211

== ENCOUNTER 2024-07-05 11:56 | Outpatient (REF) | payer OTHER, SELFPAY ==
[2024-07-05 13:30] LABS: Lipase 16 U/L (8-78)
--- OUTSIDE RECORDS SUMMARY | 2024-07-05 14:21 | XMS_ITS | Clinical Summary ---
Author Organization [employer] Address [address] [facility] 7t [place] [address] Care Team Providers Care Staple Processing Machine Operator Name Role Phone Kavin Graham MD Primary Care Provider [phone] Allergies Active Allergy Reactions Criticality Noted Date [...] Reports prior hx of needing EGDs in [facility] for persistent GERD despite PPI tx. Will [...] Department Care Team Description 06/17/2024 Patient Outreach [facility] MED & PEDS [address] [place] [address] Kavin Graham MD Pre-visit Planning ([facility] unable to reach [facility] ) 06/17/2024 Travel from Last 3 [...] EDT) Lipase 16 8 - 78 U/L [facility] 07/05/2024 12:4 1 PM EDT 07/05/2024 12:41 PM EDT us Generic External Data Provider LAB BLOOD ORDERAB LES Final Result [facility] [address] [place] [phone] * Helicobacter pylori, Urea Breath Test (04/16/2024 3:47 PM EST) H. pylori Breath Test Negative Negative [facility] Comment:Antimicrobials, prot on pump inhibitors and bismuthpreparations are known to suppress H. pylori. Ingestingthese medications within two weeks prior to performing thebreath test may produce negative test results. A positiveresult is still clinically valid. 04/16/2024 3:47 PM EST 04/17/2024 2:47 PM EST us Generic External Data Provider LAB BLOOD ORDERAB LES Final Result Performing Organization Address [facility]/ZIP Co de Phone Number [facility] [address] [place] [phone] * HIV-1/2 Antigen and Antibodies, Fourth Generation, with Reflexes (11/23/2023 3:29 PM EDT) HIV AB/AG Nonreactive Nonreactive [facility] Comment:HIV-1 p24 Ag and/or HIV-1/HIV-2 Ab not detected.A test result that is nonreactive does not exclude thepossibility of exposure to or infection with HIV-1 and/orHIV-2. Nonreactive results in this assay for individualswith prior exposure to HIV-1 and/or HIV-2 may be due toantigen and antibody levels that are below the limit ofdetection of this assay.The [employer] HIV Ag/Ab Combo assay result andsupplemental assay results should be interpreted inconjunction with the patient's clinical presentation,history and other laboratory results. If the results areinconsistent with clinical evidence, additional testing issuggested to confirm the result. Blood Venous blood specimen / Unknown 11/23/2023 3:29 PM EDT 11/23/2023 5:29 PM EDT us Kavin Graham MD LAB BLOOD ORDERABLES Final Result Performing Organization Address City/[facility]/ZIP Co de Phone Number [facility] [address] [place] [phone] * (ABNORMAL) Lipid Panel, Standard (11/23/2023 3:29 PM EDT) Triglycerides 134 <150 mg/dL [facility] Comment:Desirable Triglyceri de: less than 150 mg/dLBorderline High Triglyceride 150-199 mg/dLHigh Triglyceride: 200-499 mg/dLVery High Triglyceride: greater than or equal to 5OO mg/dL Cholesterol 203(H) <200 mg/dL [facility] Comment:Desirable Cholestero l: less than 200 mg/dLBorderline High Cholesterol: 200-239 mg/dLHigh Cholesterol: greater than 239 mg/dL LDL Cholesterol Calculated 129(H) <100 mg/dL [facility] Comment:Desirable LDL: less than 100 mg/dLNear Optimal/Above Optimal LDL: 110- 129 mg/dLBorderline High LDL: 130-159 mg/dLHigh LDL: 160-189 mg/dLVery High LDL: greater than or equal to 190 mg/dL HDL Cholesterol 48 >40 mg/dL [facility] Comment:Desirable HDL: great er than 40 mg/dL Note: This HDL assay may give artificially low results in patients with liver disease. Blood Venous blood specimen / Unknown 11/23/2023 3:29 PM EDT 11/23/2023 5:29 PM EDT Kavin Graham MD LAB BLOOD ORDERABLES Final Result [facility] [address] [place] [phone] from Last 3 Months or Most Recently Relevant to Health Maintenance Insurance [address] [place] [address] [facility] Care Teams Staple Processing Machine Operator Relationship Specialty Start Date End Date Kavin Graham MD [address] [place] [phone] PCP - General Internal Medicine 09/17/20
--- OUTSIDE RECORDS SUMMARY | 2024-07-05 14:21 | XMS_ITS | Encounter Summary ---
Author Organization [employer] Address [address] [facility] 7t [place] [address] Care Team Providers Care Veterinary Anatomist Name Role Phone Kavin Graham MD Primary Care Provider [phone] Encounter Details Date Type Department Care Team ([facility] st Contact Info) Description 04/25/2023 Telephone [facility] MEDICINE [address] [place] [address] Kavin Graham MD [address] [place], [place] [phone] Social History Tobacco Use Types Packs/Day Years [...] on filedocumented in this encounter Care Teams Veterinary Anatomist Relationship Specialty Start Date End Date Kavin Graham MD [address] [place] [phone] PCP - General Internal Medicine 09/17/20 documented as of this encounter
[2024-07-10 21:58] LABS: Transglutaminase IgA <1.0 U/mL
== END 2024-07-05 11:57 | disposition home or self-care (01) ==
LOC: HO.LAB 11:56
PROVIDERS: PCP Internal Medicine; Visit Provider Nurse Practitioner Family
DX: K64.1 Second degree hemorrhoids (principal); R10.13 Epigastric pain; K21.9 Gastro-esophageal reflux disease without esophagitis; K52.9 Noninfective gastroenteritis and colitis, unspecified; Z12.11 Encounter for screening for malignant neoplasm of colon
CPT/HCPCS: 36415; 83690; 86364; 99212

== ENCOUNTER 2024-07-05 11:56 | Outpatient (AMB) | payer OTHER, SELFPAY ==
--- NOTE | 2024-07-05 11:59 | A.OFFVIS_ITS ---
Vital Signs 07/05/24 12:08 Height 6 ft 6 in Weight 255 lb 4.725 oz BMI 29.5 BP 136/78 Blood Pressure Location Rt brachial Position Sitting Pulse 90 Pulse Source Pulse Oximeter Pulse Oximetry (%) 98 Oxygen Delivery Method Room Air Intake Visit Reasons: ~ 2 mos FUV. Intake Note: ESTABLISHED PATIENT for GERD mgmt. Chief Complaint; C/O loose stools, frequency x1-2 times per day. Pt is actively trying to avoid trigger foods but is having some difficulty identifying which foods are bothering him most. Pt also reports moderate amounts of BRB per rectum. Reflux seems OK at this time per pt. Special Crimes Investigator Required: No Accompanied by: Self / Same As Patient Allergies aspirin [ASPIRIN] Allergy (Unknown, Verified 07/05/24 11:58) UNSURE OF RX HPI HPI ~ 2 mos FUV.: Details: LAST VISIT Postprandial epigastric pain GERD (gastroesophageal reflux disease) Plan Patient will stop taking omeprazole and will start taking famotidine twice a day. Stop famotidine 24-48 hours before come in for H pylori testing. Will treat him empirically if positive. Patient will eventually go for upper endoscopy. Will check lipase and transglutaminase to rule out pancreatitis and celiac. Patient will follow-up in 2 months, sooner on as needed basis. He is agreeable to this plan and verbalizes understanding of instructions. He was given the opportunity to ask questions and all questions answered. ? Thank you for allowing me to participate in his care Orders Orders Lipase Today R10.9 H Pylori Breath Test Today K21.9 Transglutaminase IgA Today R10.9 Medications New famotidine (Pepcid) 20 mg PO BID 40 tabs 0RF K29.70 TODAY'S VISIT Patient is here today for follow-up. Patient reports that he has been doing little better, however he continues to have epigastric pain postprandially. Currently is on famotidine twice a day and for the most part his symptoms are suppressed. Patient is trying to stay away from fried food and spaghetti sauce as this is the culprit. Patient is trying to figure out which other food bother him. Patient reports frequent rectal bleed. Patient reports he will have occasional loose stools up to 3-4 a day and then he will have rectal bleed. Sometimes rectal bleed without having a bowel movement. Patient denies any rectal pain. Reports occasional constipation, takes [id number] laxative as needed. Patient denies any issues with anesthesia in the past. Diagnosed with sleep apnea in 2013, however never used CPAP. Not on any anticoagulation medication. Denies any cardiac or respiratory symptoms. Reports family history of stomach cancer. Denies any history of CRC. [facility] Medical History Hemorrhoids that prolapse with straining, but retract spontaneously HTN (hypertension) Surgical History History of cholecystectomy History of surgery of head Family History Maternal Uncle Stomach cancer Paternal Grandfather Colon cancer Social History Patient Tobacco Use Status: Never used Tobacco Review of Systems Const Denies weight gain and Denies weight loss ENT Reports no additional complaints, Denies dysphagia and Denies odynophagia Card Reports no additional complaints Resp Reports no additional complaints GI Reports abdominal pain (epigastric), Denies belching, Denies melena, Reports bloating, Reports hematochezia, Denies change in bowel habits, Reports constipation, Denies dysphagia, Denies excessive flatus, Reports dyspepsia, Reports heartburn, Denies diarrhea, Reports loose stools, Denies nausea, Denies odynophagia and Denies vomiting Reports no additional complaints Musc Reports no additional complaints Neuro Reports no additional complaints Psych Reports no additional complaints Endo Reports no additional complaints Physical Exam Const General: healthy appearing, no acute distress and well developed Nutritional Appearance: well nourished Orientation/consciousness: patient oriented x3 Resp Effort & Inspection: normal respiratory effort, able to speak in complete sentences, no tracheal deviation and symmetric chest movement Auscultation: clear to auscultation bilaterally Cardio Rate: regular rate GI Inspection: Yes normal to inspection and No distended Palpation (GI): Soft to palpation, not firm, nontender and No hepatosplenomegaly present Auscultation: normal bowel sounds General: Yes no CVA tenderness Back/Spine/Pelvis Back: no CVA tenderness Skin General skin exam: elasticity normal, turgor normal and dry skin Neuro General: patient oriented x3 Psych Appearance: grossly normal Mental Status: mental status grossly normal Assessment & Plan Assessment & Plan (1) Hemorrhoids that prolapse with straining, but retract spontaneously: Code(s): K64.1 - Second degree hemorrhoids Category: Medical (2) Postprandial epigastric pain: Code(s): R10.13 - Epigastric pain (3) GERD (gastroesophageal reflux disease): Code(s): K21.9 - Gastro-esophageal reflux disease without esophagitis Qualifiers: Esophagitis presence: esophagitis presence not specified Qualified Code(s): K21.9 - Gastro-esophageal reflux disease without esophagitis (4) Screen for colon cancer: Code(s): Z12.11 - Encounter for screening for malignant neoplasm of colon (5) Postprandial diarrhea: Code(s): K52.9 - Noninfective gastroenteritis and colitis, unspecified Plan Continue famotidine twice a day. Avoid dietary triggers and late night snacking occasional loose stools postprandially, patient was encouraged to stay away from any fatty food, status post cholecystectomy. Increase fiber. [id number] fiber supplement sent. Continue taking Dulcolax to help emptying his bowels better. Increase fluid intake and activity to promote better bowel motility. Patient will be sent for upper endoscopy and colonoscopy. He is due to go for colonoscopy in December, however patient does have a frequent loose stools postprandially and blood in his stools. Previously seen by Dr. Brock in General surgery for consultation in the office. Surgery was not required for his hemorrhoids at that time. Patient was encouraged to do high-fiber and avoid food that cause diarrhea. 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 No issues with anesthesia in the past. Patient was diagnosed with sleep apnea, however not using CPAP. Not on any anticoagulation medication. I will send him script for Proctosol he can use it as needed. Message sent to surgical schedulers to book procedure for patient. I will see him after the procedure, sooner on as needed basis. He is agreeable to current plan of care and verbalizes understanding of instructions. He was given the opportunity to ask questions and all questions answered. Thank you for allowing me to participate in his care Medications: New methylcellulose (laxative) (Citrucel) take it with full glass of water 500 mg PO DAILY 90 tabs 2RF K59.00 - Const ipation, unspecified hydrocortisone 2.5% (Proctosol HC) 1 appl NE BID-QID PRN 30 grams 2RF hemorrhoids K64.9 - Unspecified hemorrhoids polyethylene glycol 3350 (Miralax) As directed by gastroenterology department at [facility] 238 grams PO ONCE 238 grams 0RF Z12.11 - Encounter for screening for malignant neoplasm of colon bisacodyl (Dulcolax (bisacodyl)) take 4 tabs at noon the day before your colonoscopy 20 mg (4 x 5 mg) PO ONCE 1 day 4 tabs 0RF Z12.11 - Encounter for screening for malignant neoplasm of colon Coding Level of Care Code Est Pt Level 4 (05277) Complex EM visit Add On G2211 Diagnoses Hemorrhoids that prolapse with straining, but retract spontaneously K64.1 Postprandial epigastric pain R10.13 Gastroesophageal reflux disease, unspecified whether esophagitis present K21.9 Esophagitis presence: esophagitis presence not specified Screen for colon cancer Z12.11 Postprandial diarrhea K52.9 Time Spent (min) 35 Comment 25 minutes spent with patient and additional 10 minutes spent reviewing his records
[2024-07-05 12:08] VITALS: BP 136/78; PULSE 90; O2SAT 98; BMI 29.5
--- OUTSIDE RECORDS SUMMARY | 2024-07-05 13:57 | XMS_ITS | Clinical Summary ---
Author Organization [employer] Address [address] [facility] 7t [place] [address] Care Team Providers Care Sales And Marketing Specialist Name Role Phone Kavin Graham MD Primary Care Provider [phone] Allergies Active Allergy Reactions Criticality Noted Date Comments Aspirin 12/18/2014 Medications Blood Pressure kitIndications:El evated blood pressure reading 1 Units in the morning. 1 kit 3 Active hydrocortisone (Anusol-HC) 2.5 % rectal creamIndications: Bleeding hemorrhoid Insert into the rectum 2 times daily. 28 g 2 3 Active amLODIPine (Norvasc) 10 MG tabletIndications :Hypertension, unspecified type Take 1 tablet (10 mg) by mouth in the morning. 90 tablet 1 4 Active cetirizine (ZyrTEC) 10 MG tabletIndications :Seasonal allergies Take 1 tablet (10 mg) by mouth Once per day. 30 tablet 4 11/23/19 25 Active chlorthalidone (Hygroton) 25 MG tabletIndications :Primary hypertension Take 1 tablet (25 mg) by mouth Once per day. 30 tablet 4 11/23/19 25 Active dicyclomine (Bentyl) 10 MG capsuleIndication s:Lower abdominal pain Take 1 capsule (10 mg) by mouth 4 times daily. 120 capsule 4 11/23/19 25 Active omeprazole (PriLOSEC) [address] capsuleIndication s:Gastroesophagea l reflux disease, unspecified whether esophagitis present Take 1 capsule (40 mg) by mouth before breakfast. Do not crush or chew. 90 capsule 1 4 Active bisacodyl (Dulcolax) 5 MG EC tabletIndications :Other constipation Take 1 tablet (5 mg) by mouth if needed each day for constipation. Do not crush, chew, or split. 30 tablet 4 11/23/19 25 Active Melatonin 10 MG capsuleIndication s:Other insomnia TAKE 1 CAPSULE BY MOUTH EVERYDAY AT BEDTIME 90 capsule 1 4 Active Diclofenac Sodium 1 % gelIndications:Ar thralgia of both hands TO APPLY TO THE AFFECTED AREA 3 TIMES A DAY 100 g 4 Active Active Problems Problem Noted Date Diagnosed Date Hypertension 03/16/2023 Gastroesophageal reflux disease 05/12/2022 Tenesmus 05/12/2022 Lower abdominal pain 05/12/2022 Assessment & Plan (05/12/2022 8:47 PM EST): Chronic abdominal pain now with tenesmus. Discussed importance w/ compliance of fup with his PCP. Broad differential, will start with labs, Hyperactive bowel movements. Reports prior hx of needing EGDs in [facility] for persistent GERD despite PPI tx. Will send higher dose PPI and refer to GI, also to assist w/u abd pain. Patient refused rectal examination Encounter for health-related screening 3 Elevated blood pressure reading 05/12/2022 Assessment & Plan (05/12/2022 8:45 PM EST): Discussed with patient that it will be beneficial to monitor BP before official dx of HTN, only 1 prior appt with PCP. Reports concern for elevation and will want to start treatment, significant elevated diastolic and systolic, will start amlodipine. Will schedule for nursing appt. - If SBP < 140/DBP <90 mmHg in more than 75% of home self-monitoring, continue current medication regimen and make f/u with PCP in 3 month - If SBP >140-165/DBP >90-115 mmHg , increase dose of amlodipine to 10 mg and f/u with PCP in 1 month - If SBP > 165/ DBP> 115 mmHg, consult with covering provider - If SBP <90/DBP <50 mmHg, consult with covering provider. Encounters Date Type Department Care Team Description 06/17/2024 Patient Outreach [facility] MED & PEDS [address] [place] [address] Kavin Graham MD Pre-visit Planning ([facility] unable to reach [facility] ) 06/17/2024 Travel from Last 3 Months Immunizations Name Administration Dates Next Due Hep A, Adult 06/19/2017 Hep A, Unspecified 12/17/2016 Hep B Immune Globulin 06/18/2017,01/16/2017 Hep B, Unspecified 12/17/2016 Hep B, adult 06/18/2017,01/16/2017 Influenza, trivalent, adjuvanted 01/07/2020 MMR 12/17/2016 Tdap 05/16/2020,12/09/2016 Family History Medical History Relation Name Comments Diabetes type II Mother Hypertension Mother Kidney disease Mother arthritis Mother Relation Name Status Comments Mother Social History Tobacco Use Types Packs/Day Years Used Date Smoking Tobacco: Former Cigarettes Smokeless Tobacco: Never Tobacco Cessation:Counseling Given: Not Answered Depression Answer Date Recorded Patient Health Questionnaire-9 Score 6 11/23/2023 Patient Health Questionnaire-9 Score 6 11/23/2023 Last PHQ-9: Questionnaire Data Not on file 0 11/23/2023 Housing Stability Answer Date Recorded What is your housing situation today? I have enrique lupillo 11/16/[address] you li ve. Do you have problems with any of the following? None of the above 11/16/2023 Food Insecurity Answer Date Recorded Within the past 12 months, y ou worried that your food would run out before you got money to buy more: Never True 11/16/2023 Within the past 12 months,th e food you bought just didn't last and you didn't have enough money to get more: Never True Transportation Answer Date Recorded In the past 12 months, has l ack of transportation kept you from medical appts, meetings, work or from getting things needed for daily living? No 11/16/2023 Utilities Answer Date Recorded In the past 12 months, has t he electric, gas, oil or water company threatened to shut off services in your home? No 11/16/2023 Depression Answer Date Recorded Patient Health Questionnaire-2 Score 1 11/23/2023 Internet Access Answer Date Recorded Internet Access Q1 Yes 12/04/2023 Internet Access Q2 Not on file 12/04/2023 Sex and Gender Information Value Date Recorded Sex Assigned at Male 01/31/2022 10:24 AM EDT Legal Sex Male 10:24 AM EDT Gender Identity Male 01/31/2022 10:24 AM EDT Sexual Orientation Don't know 01/31/2022 10 :24 AM EDT Last Filed Vital Signs Vital Sign Reading Time Taken Comments Blood Pressure 129/89 01/24/2024 3:57 PM EDT Pulse 79 01/24/2024 3:57 PM EDT Temperature 36.6 ??C (97.8 ??F) 01/24/2024 3:34 PM ED T Respiratory Rate 20 01/24/2024 3:34 PM EDT Oxygen Saturation 98% 01/24/2024 3:34 PM EDT Inhaled Oxygen Concentration - - Weight 112 kg (248 lb) 01/24/2024 3:34 PM EDT Height 198.1 cm (6' 6 ) 01/24/2024 3:34 PM EDT Body Mass Index 28.66 01/24/2024 3:34 PM EDT Plan of Treatment Health Maintenance Due Date Last Done Comments Alcohol/Substance Use Screening 1991 Family Planning (PISQ) 12/23/1994 Hepatitis C Screening 12/23/1997 COVID-19 Vaccine (3 - 2023-2 5 season) 2023 02/13/2021, 01/16/2021 Influenza Vaccine (#1) 2023 , 03/02/2015, 02/03/2012 SDOH Screening 11/15/2024 11/16/2023 Depression Screening 11/22/2024 11/23/2023, 11/23/2023 Tobacco Screening 11/22/2024 11/23/2023 Lipid Panel 11/22/2028 11/23/2023, 05/27/2022 Zoster Vaccines (1 of 2) 12/23/2029 DTaP/Tdap/Td Vaccines (3 - T d or Tdap) 05/16/2030 05/16/2020, 12/09/2016, 05/03/2011 RSV Patients and Patients Aged 60 years or older (1 - 1-dose 75+ series) 12/23/2054 Hepatitis B Vaccines Completed 06/18/2017, 01/16/2017, 12/17/2016 Hepatitis A Vaccines Aged Out 06/19/2017, 12/17/2016 No longer eligible based on patient's age to complete this topic HIV Screening Completed 11/23/2023 HIB Vaccines Aged Out No longer eligi ble based on patient's age to complete this topic HPV Vaccines Aged Out No longer eligi ble based on patient's age to complete this topic IPV Vaccines Aged Out No longer eligi ble based on patient's age to complete this topic Meningococcal Vaccine Aged Out No hussain torito eligible based on patient's age to complete this topic Pneumococcal Vaccine: Pediatrics (0 to 5 Years) and At-Risk Patients (6 to 49) Years) Aged Out No longer eligible b ased on patient's age to complete this topic RSV under 20 months Aged Out No longe r eligible based on patient's age to complete this topic Rotavirus Vaccines Aged Out No longer eligible based on patient's age to complete this topic Procedures Procedure Name Priority Date/Time Associated Diagnosis Comments LIPASE Routine 07/05/2024 12:41 PM EDT HELICOBACTER PYLORI, UREA BREATH TEST Routine 04/16/2024 3:47 PM EST HIV 1/2 ANTIGEN/ANTIBODY, FOURTH GENERATION W/RFL Routine 11/23/2023 3:29 PM EDT Hypertension, unspecified type LIPID PANEL, STANDARD Routine 11/23/2023 3:29 PM EDT Hypertension, unspecified type from Last 3 Months or Most Recently Relevant to Health Maintenance Results * Lipase (07/05/2024 12:41 PM EDT) Lipase 16 8 - 78 U/L [facility] 07/05/2024 12:4 1 PM EDT 07/05/2024 12:41 PM EDT us Generic External Data Provider LAB BLOOD ORDERAB LES Final Result [facility] [address] [place] [phone] * Helicobacter pylori, Urea Breath Test (04/16/2024 3:47 PM EST) H. pylori Breath Test Negative Negative [facility] Comment:Antimicrobials, prot on pump inhibitors and bismuthpreparations are known to suppress H. pylori. Ingestingthese medications within two weeks prior to performing thebreath test may produce negative test results. A positiveresult is still clinically valid. 04/16/2024 3:47 PM EST 04/17/2024 2:47 PM EST us Generic External Data Provider LAB BLOOD ORDERAB LES Final Result Performing Organization Address [facility]/ZIP Co de Phone Number [facility] [address] [place] [phone] * HIV-1/2 Antigen and Antibodies, Fourth Generation, with Reflexes (11/23/2023 3:29 PM EDT) HIV AB/AG Nonreactive Nonreactive [facility] Comment:HIV-1 p24 Ag and/or HIV-1/HIV-2 Ab not detected.A test result that is nonreactive does not exclude thepossibility of exposure to or infection with HIV-1 and/orHIV-2. Nonreactive results in this assay for individualswith prior exposure to HIV-1 and/or HIV-2 may be due toantigen and antibody levels that are below the limit ofdetection of this assay.The [employer] HIV Ag/Ab Combo assay result andsupplemental assay results should be interpreted inconjunction with the patient's clinical presentation,history and other laboratory results. If the results areinconsistent with clinical evidence, additional testing issuggested to confirm the result. Blood Venous blood specimen / Unknown 11/23/2023 3:29 PM EDT 11/23/2023 5:29 PM EDT us Kavin Graham MD LAB BLOOD ORDERABLES Final Result Performing Organization Address City/[facility]/ZIP Co de Phone Number [facility] [address] [place] [phone] * (ABNORMAL) Lipid Panel, Standard (11/23/2023 3:29 PM EDT) Triglycerides 134 <150 mg/dL [facility] Comment:Desirable Triglyceri de: less than 150 mg/dLBorderline High Triglyceride 150-199 mg/dLHigh Triglyceride: 200-499 mg/dLVery High Triglyceride: greater than or equal to 5OO mg/dL Cholesterol 203(H) <200 mg/dL [facility] Comment:Desirable Cholestero l: less than 200 mg/dLBorderline High Cholesterol: 200-239 mg/dLHigh Cholesterol: greater than 239 mg/dL LDL Cholesterol Calculated 129(H) <100 mg/dL [facility] Comment:Desirable LDL: less than 100 mg/dLNear Optimal/Above Optimal LDL: 110- 129 mg/dLBorderline High LDL: 130-159 mg/dLHigh LDL: 160-189 mg/dLVery High LDL: greater than or equal to 190 mg/dL HDL Cholesterol 48 >40 mg/dL [facility] Comment:Desirable HDL: great er than 40 mg/dL Note: This HDL assay may give artificially low results in patients with liver disease. Blood Venous blood specimen / Unknown 11/23/2023 3:29 PM EDT 11/23/2023 5:29 PM EDT Kavin Graham MD LAB BLOOD ORDERABLES Final Result [facility] [address] [place] [phone] from Last 3 Months or Most Recently Relevant to Health Maintenance Insurance [address] [place] [address] [facility] Care Teams Sales And Marketing Specialist Relationship Specialty Start Date End Date Kavin Graham MD [address] [place] [phone] PCP - General Internal Medicine 09/17/20
--- OUTSIDE RECORDS SUMMARY | 2024-07-05 13:57 | XMS_ITS | Encounter Summary ---
Author Organization [employer] Address [address] [facility] 7t [place] [address] Care Team Providers Care Doorperson Name Role Phone Kavin Graham MD Primary Care Provider [phone] Encounter Details Date Type Department Care Team ([facility] st Contact Info) Description 04/25/2023 Telephone [facility] MEDICINE [address] [place] [address] Kavin Graham MD [address] [place], [place] [phone] Social History Tobacco Use Types Packs/Day Years Used Date Smoking Tobacco: Former Cigarettes Smokeless Tobacco: Never Housing Stability Answer Date Recorded What is your housing situation today? I have enrique wesley 02/03/[address] you li ve. Do you have problems with any of the following? None of the above 02/03/2023 Food Insecurity Answer Date Recorded Within the past 12 months, y ou worried that your food would run out before you got money to buy more: Never True 02/03/2023 Within the past 12 months,th e food you bought just didn't last and you didn't have enough money to get more: Never True 06/2022 Transportation Answer Date Recorded In the past 12 months, has l ack of transportation kept you from medical appts, meetings, work or from getting things needed for daily living? No 02/03/2023 Utilities Answer Date Recorded In the past 12 months, has t he electric, gas, oil or water company threatened to shut off services in your home? No 02/03/2023 Sex and Gender Information Value Date Recorded Sex Assigned at Male 01/31/2022 10:24 AM EDT Legal Sex Male 10:24 AM EDT Gender Identity Male 01/31/2022 10:24 AM EDT Sexual Orientation Don't know 01/31/2022 10 :24 AM EDT documented as of this encounter Plan of Treatment Not on file documented as of this encounter Visit Diagnoses Not on filedocumented in this encounter Care Teams Doorperson Relationship Specialty Start Date End Date Kavin Graham MD [address] [place] [phone] PCP - General Internal Medicine 09/17/20 documented as of this encounter
== END 2024-07-05 12:22 | disposition home or self-care (01) ==
LOC: HO.HGI 11:57
PROVIDERS: PCP Internal Medicine; Visit Provider Nurse Practitioner Family
DX: K64.1 Second degree hemorrhoids (principal); K21.9 Gastro-esophageal reflux disease without esophagitis; K52.9 Noninfective gastroenteritis and colitis, unspecified
CPT/HCPCS: 99214; G2211

== ENCOUNTER 2024-08-14 11:59 | Day surgery (SDC) | payer OTHER, SELFPAY ==
--- OUTSIDE RECORDS SUMMARY | 2024-08-01 16:27 | XMS_ITS | Encounter Summary ---
Author Organization [employer] Address [address] [facility] 7t [place] [address] Care Team Providers Care Senior Loan Processor Name Role Phone Kavin Graham MD Primary Care Provider [phone] Encounter Details Date Type Department Care Team ([facility] st Contact Info) Description 04/25/2023 Telephone [facility] MEDICINE [address] [place] [address] Kavin Graham MD [address] [place], [place] [phone] Social History Tobacco Use Types Packs/Day Years [...] on filedocumented in this encounter Care Teams Senior Loan Processor Relationship Specialty Start Date End Date Kavin Graham MD [address] [place] [phone] PCP - General Internal Medicine 09/17/20 documented as of this encounter
--- OUTSIDE RECORDS SUMMARY | 2024-08-01 16:27 | XMS_ITS | Clinical Summary ---
Author Organization [employer] Address [address] [facility] [address] [place] [address] Care Team Providers Care Nurse Liaison Name Role Phone Kavin Graham MD Primary Care Provider [phone] Allergies Active Allergy Reactions Criticality Noted Date [...] Reports prior hx of needing EGDs in [facility] for persistent GERD despite PPI tx. [...] Department Care Team Description 06/17/2024 Patient Outreach [facility] [address] [place] [address] Kavin Graham MD Pre-visit Planning ([facility] unable to reach [facility] ) 06/17/2024 Travel from Last 3 Months [...] Procedure Name Priority Date/Time Associated Diagnosis Comments TISSUE TRANSGLUTAMINASE AB, IGA Routine 07/05/2024 12:41 PM EDT LIPASE Routine 07/05/2024 12:41 PM EDT HIV 1/2 ANTIGEN/ANTIBODY, FOURTH GENERATION W/RFL Routine 11/23/2023 3:29 PM EDT Hypertension, unspecified type LIPID PANEL, STANDARD Routine 11/23/2023 3:29 PM EDT Hypertension, unspecified type from Last 3 Months or Most Recently Relevant to Health Maintenance Results * Tissue Transglutaminase Antibody, IgA (07/05/2024 12:41 PM EDT) Transglutaminase IgA <1.0 U/mL [facility] Comment:Value Interpretation ----- <15.0 Antibody not detected> or = 15.0 Antibody detectedTHIS TEST WAS PERFORMED AT:[facility] [place] [id number] FRANCISCO MD 07/05/2024 12:4 1 PM EDT 07/05/2024 12:41 PM EDT us Generic External Data Provider LAB BLOOD ORDERAB LES Final Result Performing Organization Address City/[facility]/ZIP Co de Phone Number [facility] [address] [place] [phone] * Lipase (07/05/2024 12:41 PM EDT) Lipase 16 8 - 78 U/L [facility] 07/05/2024 12:4 1 PM EDT 07/05/2024 12:41 PM EDT Generic External Data Provider LAB BLOOD ORDERAB LES Final Result Performing Organization Address [facility] Co de Phone Number [facility] [address] [place] [phone] * HIV-1/2 Antigen and Antibodies, Fourth Generation, with Reflexes (11/23/2023 3:29 PM EDT) HIV AB/AG Nonreactive Nonreactive [facility] Comment:HIV-1 p24 Ag and/or HIV-1/HIV-2 Ab not detected.A test result that is nonreactive does not exclude thepossibility of exposure to or infection with HIV-1 and/orHIV-2. Nonreactive results in this assay for individualswith prior exposure to HIV-1 and/or HIV-2 may be due toantigen and antibody levels that are below the limit ofdetection of this assay.The ZupplerniMIGSIF HIV Ag/Ab Combo assay result andsupplemental assay results should be interpreted inconjunction with the patient's clinical presentation,history and other laboratory results. If the results areinconsistent with clinical evidence, additional testing issuggested to confirm the result. Blood Venous blood specimen / Unknown 11/23/2023 3:29 PM EDT 11/23/2023 5:29 PM EDT Kavin Graham MD LAB BLOOD ORDERABLES Final Result Performing Organization Address City/[facility]/ZIP Co de Phone Number [facility] [address] [place] [phone] [phone] * (ABNORMAL) Lipid Panel, Standard (11/23/2023 3:29 PM EDT) Triglycerides 134 <150 mg/dL [facility] Comment:Desirable Triglyceri de: less than 150 mg/dLBorderline High Triglyceride 150-199 mg/dLHigh Triglyceride: 200-499 mg/dLVery High Triglyceride: greater than or equal to 5OO mg/dL Cholesterol 203(H) <200 mg/dL [facility] Comment:Desirable Cholestero l: less than 200 mg/dLBorderline High Cholesterol: 200-239 mg/dLHigh Cholesterol: greater than 239 mg/dL LDL Cholesterol Calculated 129(H) <100 mg/dL [facility] Comment:Desirable LDL: less than 100 mg/dLNear Optimal/Above Optimal LDL: 110- 129 mg/dLBorderline High LDL: 130-159 mg/dLHigh LDL: 160-189 mg/dLVery High LDL: greater than or equal to 190 mg/dL HDL Cholesterol 48 >40 mg/dL [facility] Comment:Desirable HDL: great er than 40 mg/dL Note: This HDL assay may give artificially low results in patients with liver disease. Blood Venous blood specimen / Unknown 11/23/2023 3:29 PM EDT 11/23/2023 5:29 PM EDT Kavin Graham MD LAB BLOOD ORDERABLES Final Result Performing Organization Address [facility]/ZIP Co de Phone Number [facility] [address] [place] [address] [phone] from Last 3 Months or Most Recently Relevant to Health Maintenance Insurance [facility] [employer] Care Teams Nurse Liaison Relationship Specialty Start Date End Date Kavin Graham MD [address] [place], [place] [address] [address] PCP - General Internal Medicine 09/17/20
[2024-08-12 12:01] VITALS: BMI 29.5
--- NOTE | 2024-08-13 10:35 | P.CONAN_ITS ---
HPI - Anesthesia Eval Consult details Narrative: 43yo M for Upper Endoscopy and Colonoscopy [facility] Active Problems Active Problems: All Active Problems Hemorrhoids that prolapse with straining, but retract spontaneously (Acute) Past Medical History Medical History (Updated 08/12/24 @ 15:52 by Ebony Gilmore, RN) Insomnia Seasonal allergies GERD (gastroesophageal reflux disease) Constipation Hemorrhoids that prolapse with straining, but retract spontaneously HTN (hypertension) Family History Family History Maternal Uncle Stomach cancer Paternal Grandfather Colon cancer Surgical History Surgical History (Updated 08/12/24 @ 15:51 by Ebony Gilmore, RN) History of esophagogastroduodenoscopy (EGD) Hx of brain surgery History of cholecystectomy History of surgery of head Social History Social History (Updated 08/12/24 @ 15:48 by Ebony Gilmore, AVINASH) Household Members Other:: mother Housing: Apartment Are you a primary customer care voice consultant to a significant other at home: No Do you presently have visiting nurse or other home services: No Patient Tobacco Use Status: Former Tobacco user Tobacco use type: Cigarette Use of substances other than those prescribed or required for medical reasons: No Have you been hit, kicked, punched, or otherwise hurt by someone within the past year? If so, by whom?: No Are you DNR?: No Advance Directives: No Advance Directives Information Provided: Yes Advance Directives on File: No Poor oral hygiene: No Meds Allergies Allergy/AdvReac Type Severity Reaction Status Date / Time aspirin [ASPIRIN] Allergy Unknown UNSURE OF Verified 07/05/24 11:58 RX Home Medications ?Medication ?Instructions ?Recorded ?Confirmed ?Last Taken ?Type cetirizine 10 mg tablet 10 mg PO QAM 10/10/22 08/12/24 Unknown History chlorthalidone 25 mg tablet 25 mg PO QAM 10/10/22 08/12/24 Unknown History dicyclomine 10 mg capsule 10 mg PO QID 10/10/22 10/10/22 Unknown History bisacodyl 5 mg tablet,delayed 5 mg PO DAILY 04/01/24 08/12/24 Unknown History release (Laxative (bisacodyl)) melatonin 10 mg capsule 10 mg PO BEDTIME PRN Insomnia 04/01/24 08/12/24 Unknown History amlodipine 10 mg tablet 10 mg PO DAILY 07/05/24 08/12/24 Unknown History Exam Height,Weight and Vital Signs: Height 6 ft 6 in Weight 117.934 kg Assessment and Plan Assessment Anesthesia Assessment: Chart Reviewed
--- NOTE | 2024-08-14 10:49 | HO.ANESPROP2 ---
[facility] Active Problems Active Problems: All Active Problems Hemorrhoids that prolapse with straining, but retract spontaneously (Acute) Past Medical History Medical History (Updated 08/12/24 @ 15:52 by Ebony Gilmore RN) Insomnia Seasonal allergies GERD (gastroesophageal reflux disease) Constipation Hemorrhoids that prolapse with straining, but retract spontaneously HTN (hypertension) Family History Family History Maternal Uncle Stomach cancer Paternal Grandfather Colon cancer Family history of problems with anesthesia: No Surgical History Surgical History (Updated 08/12/24 @ 15:51 by Ebony Gilmore RN) History of esophagogastroduodenoscopy (EGD) Hx of brain surgery History of cholecystectomy History of surgery of head History of Problems with Anesthesia: No Social History Social History (Updated 08/12/24 @ 15:48 by Ebony Gilmore RN) Household Members Other:: mother Housing: Apartment Are you a primary child caregiver private home to a significant other at home: No Do you presently have visiting nurse or other home services: No Patient Tobacco Use Status: Former Tobacco user Tobacco use type: Cigarette Use of substances other than those prescribed or required for medical reasons: No Have you been hit, kicked, punched, or otherwise hurt by someone within the past year? If so, by whom?: No Are you DNR?: No Advance Directives: No Advance Directives Information Provided: Yes Advance Directives on File: No Poor oral hygiene: No Meds Allergies Allergy/AdvReac Type Severity Reaction Status Date / Time aspirin [ASPIRIN] Allergy Unknown UNSURE OF Verified 07/05/24 11:58 RX Active Medications: Current Medications Naloxone HCl (Naloxone Hcl 0.4 Mg/Ml Vial) 0.04 mg IVPUSH Q5M PRN PRN Reason: Excessive sedation or RR < 8 Home Medications ?Medication ?Instructions ?Recorded ?Confirmed ?Last Taken ?Type cetirizine 10 mg tablet 10 mg PO QAM 10/10/22 08/12/24 08/14/24 History chlorthalidone 25 mg tablet 25 mg PO QAM 10/10/22 08/12/24 08/14/24 History dicyclomine 10 mg capsule 10 mg PO QID 10/10/22 10/10/22 Unknown History bisacodyl 5 mg tablet,delayed 5 mg PO DAILY 04/01/24 08/12/24 Unknown History release (Laxative (bisacodyl)) melatonin 10 mg capsule 10 mg PO BEDTIME PRN Insomnia 04/01/24 08/12/24 Unknown History amlodipine 10 mg tablet 10 mg PO DAILY 07/05/24 08/12/24 08/14/24 History Exam Height,Weight and Vital Signs: Height 6 ft 6 in Weight 117.934 kg Airway Mallampati Class: II TM Dist: >3cm Neck ROM: Full Heart: rrr Lungs: cta Assessment and Plan Assessment Anesthesia Assessment: Anesthesia Plan Discussed and Chart Reviewed Final Anesthetic Review Family History of Problems with Anesthesia: No History of Problems with Anesthesia: No NPO: Yes ASA Class: II Final Preanesthetic Review: No Changes in Pt Med Stat, Meds/Allgs Chart Reviewed and Consent Obtained/Reviewed Patient Risk: Intermediate Procedure Risk: Intermediate Anesthetic Plan Anesthetic Plan: MAC: Disposition: Standard PACU
[2024-08-14 12:17] VITALS: BMI 29.8
[2024-08-14 12:19] VITALS: BP 117/76; PULSE 68; RESP 16; TEMP 36.4; O2SAT 98
--- NOTE | 2024-08-14 12:21 | HO.OPN-COLON ---
Colonoscopy Operative Note Operative Note Date of Service: 08/14/24 Narrative: Operative Information Procedure Description: EGD, Colonoscopy Indication: abn bowel habit Anesthesia: MAC FLEXIBLE TRANSORAL UPPER GASTROINTESTINAL ENDOSCOPY AND COLONOSCOPY PROCEDURE NOTE UPPER ENDOSCOPY Consent: Indications for the procedure and potential complications of bleeding, perforation, reaction to medications and missed diagnosis were discussed with the patient and informed consent was obtained. Instrument: Olympus GIF H 190 J mid size upper endoscope Monitoring: Vital signs and clinical assessment, continuous EKG monitoring, Pulse oximetry, Carbon Dioxide monitoring and blood pressure monitoring were done throughout the procedure. Procedure: The patient was placed in the left lateral decubitis position and pre-procedure medications were administered and a bite block was placed. The endoscope was inserted into the mouth and advanced under direct vision to the third part of duodenum. A careful inspection was made as the upper endoscope was withdrawn including a retroflexed examination of the proximal stomach; Findings and interventions are described below. Findings: Larynx:normal Esophagus: GE junction at 39 cm, diaphragm hiatus at 41 cm, consistent with 2 cm sliding hiatal hernia, salmon pink tissue consistent with short segment muñoz mucosa noted, bx taken . schatzki ring also noted Stomach: Normal mucosa. Biopsies were obtained. Grade 2 flap valve on retroflexed examination of the cardia. Duodenum: Normal bulb and descending duodenum, bx taken Intervention: Biopsies as noted above, COLONOSCOPY Instrument: Olympus variable stiffness adult scope 190L Colonoscopy Monitoring: Vital signs and clinical assessment, continuous EKG monitoring, Pulse oximetry, Carbon Dioxide monitoring and blood pressure monitoring were done throughout the procedure. Colon withdrawal time was 9 minutes. Procedure: The patient was placed in the left lateral decubitis position and pre-procedure medications were administered. After a digital rectal examination of the ano-rectum, the video colonoscope was inserted into the rectum and advanced through the colon to the cecum/TI. The colonoscope was slowly withdrawn in a retrograde panoramic fashion and the colon mucosa was carefully examined including a retroflexed view of the rectum. Findings and interventions are described below. Procedure Difficulty:moderate Findings: Terminal Ileum-normal, bx taken random colon bx taken from right and left colon Cecum:normal Ascending Colon: normal Transverse Colon -normal Descending Colon:normal Sigmoid Colon: normal Rectum: Retroflexion with large internal hemorrhoids, grade I Anorectum - normal Colon preparation: Secor Bowel Preparation Scale Right colon; 2 Transverse colon: 2 Left colon; 2 (0 = Unprepared colon segment with mucosa not seen due to solid stool that cannot be cleared. 1 = Portion of mucosa of the colon segment seen, but other areas of the colon segment not well seen due to staining, residual stool and/or opaque liquid. 2 = Minor amount of residual staining, small fragments of stool and/or opaque liquid, but mucosa of colon segment seen well. 3 = Entire mucosa of colon segment seen well with no residual staining, small fragments of stool or opaque liquid) Impression and Post Procedure Diagnosis: Endoscopy Findings: hiatal hernia schatzki ring muñoz esophagus--tissue cypher also sent Colonoscopy Findings: internal hemorrhoids Plan: Await Pathology results Repeat Colonoscopy in 10 years or earlier if clinically indicated High fiber diet leaflet avoid straining at stool, epsom salts and sitz bath, anusol supps or cream if Muñoz pos then repeat EGD 3-5 yrs check if taking PPI Above findings were reviewed with the patient and relevant handouts were provided if indicated.
--- NOTE | 2024-08-14 12:21 | MHC.SHP ---
Pre-Procedural Eval Section A - 24 Hr Update-Section A only Date of Service: 08/14/24 Section B - Complete if H&P > 30 days Chief Complaint: rectal bleeding,gerd,2nd degree hemorrhoids,pain Relevant Family History (Specify if Yes): Yes Relevant Social History: None Present Medications: see Short Stay Collaborative assessment Medical History: Significant History (Hemorrhoids that prolapse with straining, but retract spontaneously HTN (hypertension)) History of Previous Operations: Relevant previous surgery/procedure and date(s) (History of cholecystectomy History of surgery of head) Allergies: Allergies Allergy/AdvReac Type Severity Reaction Status Date / Time aspirin [ASPIRIN] Allergy Unknown UNSURE OF Verified 07/05/24 11:58 RX Review of Systems Sugical H&P ROS: Negative: Constitution, Cardiovascular, Respiratory, Neurological, Psychiatric, Hem-Onc, Allergic/Immunologic, Gastrointestinal, Genitourinary, Musculoskeletal, Integumentary, Endocrine and Eyes/Ears/Nose/Throat Exam Surgical H&P Exam: Normal: HEENT, Normal: Heart, Normal: Lungs, Normal: Extremities, Normal: Abdomen, Normal: Skin and Normal: Neurological Plan Diagnosis/Plan: Unchanged I have reviewed the history and physical and performed a pertinent physical examination on my patient. No changes have occurred unless specified. Time Spent With Patient Time: Total time managing care of this patient today ____ minutes.
[2024-08-14] MEDS: Lactated Ringers 1,000 ML 100 ML IVCONT (12:26)
[2024-08-14 13:08] VITALS: BP 109/63; PULSE 72; RESP 16; TEMP 37.1; O2SAT 97
[2024-08-14 13:23] VITALS: BP 118/71; PULSE 66; RESP 16; O2SAT 97
[2024-08-14 13:38] VITALS: BP 128/73; PULSE 67; RESP 18; TEMP 36.5; O2SAT 97
== END 2024-08-14 14:24 | disposition home or self-care (01) ==
PROVIDERS: PCP Internal Medicine; Visit Provider Internal Medicine Gastroenterology
PROC: (CPT 45380; principal; 2024-08-14 14:10)
DX: K62.5 Hemorrhage of anus and rectum (principal); R19.4 Change in bowel habit; K64.0 First degree hemorrhoids; R10.13 Epigastric pain; K21.9 Gastro-esophageal reflux disease without esophagitis; K22.70 Barrett's esophagus without dysplasia; K22.2 Esophageal obstruction; K44.9 Diaphragmatic hernia without obstruction or gangrene; I10 Essential (primary) hypertension; Z79.899 Other long term (current) drug therapy; Z88.6 Allergy status to analgesic agent; Z90.49 Acquired absence of other specified parts of digestive tract; Z98.890 Other specified postprocedural states
CPT/HCPCS: 45380; 43239; 88305; 88313; 88342; J2003; J2704

== ENCOUNTER → 2024-08-14 11:59 | Outpatient (BNV) | payer OTHER, SELFPAY | PROVIDERS: PCP Internal Medicine; Visit Provider Internal Medicine Gastroenterology | DX: K22.70 Barrett's esophagus without dysplasia (principal); K22.2 Esophageal obstruction; K62.5 Hemorrhage of anus and rectum; K64.0 First degree hemorrhoids | CPT/HCPCS: 43239; 45380 ==

== ENCOUNTER 2024-10-09 16:26 | Outpatient (AMB) | payer MEDICAID, SELFPAY ==
--- NOTE | 2024-10-09 16:28 | A.OFFVIS_ITS ---
Vital Signs 10/09/24 16:30 Height 6 ft 6 in Weight 248 lb BMI 28.7 BP 136/90 H Blood Pressure Location Lt brachial Position Sitting Pulse 64 Pulse Source Pulse Oximeter Pulse Oximetry (%) 98 Oxygen Delivery Method Room Air Intake Visit Reasons: S/P double; Dr. Rhodes Intake Note: ESTABLISHED PATIENT for GERD mgmt. S/P Duo Chief Complaint; Pt denies any changes since last visit. Pt does want to discuss additional details of their results from the procedure. Staff Radiologist Required: No Accompanied by: Self / Same As Patient Allergies aspirin (ASPIRIN) Allergy (Unknown, Verified 10/09/24 16:29) UNSURE OF RX HPI HPI S/P double; Dr. Rhodes: Details: LAST VISIT Hemorrhoids that prolapse with straining, but retract spontaneously Postprandial epigastric pain GERD (gastroesophageal reflux disease) Screen for colon cancer Postprandial diarrhea Plan Continue famotidine twice a day. Avoid dietary triggers and late night snacking occasional loose stools postprandially, patient was encouraged to stay away from any fatty food, status post cholecystectomy. Increase fiber. [id number] fiber supplement sent. Continue taking Dulcolax to help emptying his bowels better. Increase fluid intake and activity to promote better bowel motility. Patient will be sent for upper endoscopy and colonoscopy. He is due to go for colonoscopy in December, however patient does have a frequent loose stools postprandially and blood in his stools. Previously seen by Dr. Brock in General surgery for consultation in the office. Surgery was not required for his hemorrhoids at that time. Patient was encouraged to do high-fiber and avoid food that cause diarrhea. 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 No issues with anesthesia in the past. Patient was diagnosed with sleep apnea, however not using CPAP. Not on any anticoagulation medication. I will send him script for Proctosol he can use it as needed. Message sent to surgical schedulers to book procedure for patient. I will see him after the procedure, sooner on as needed basis. He is agreeable to current plan of care and verbalizes understanding of instructions. He was given the opportunity to ask questions and all questions answered. ? Thank you for allowing me to participate in his care New methylcellulose (laxative) (Citrucel) take it with full glass of water 500 mg PO DAILY 90 tabs 2RF K59.00 hydrocortisone 2.5% (Proctosol HC) 1 appl ME BID-QID PRN 30 grams 2RF hemorrhoids K64.9 polyethylene glycol 3350 (Miralax) As directed by gastroenterology department at [facility] 238 grams PO ONCE 238 grams 0RF Z12.11 bisacodyl (Dulcolax (bisacodyl)) take 4 tabs at noon the day before your colonoscopy 20 mg (4 x 5 mg) PO ONCE 1 day 4 tabs 0RF Z12.11 UPPER ENDOSCOPY AND COLONOSCOPY Findings: Larynx:normal Esophagus: GE junction at 39 cm, diaphragm hiatus at 41 cm, consistent with 2 cm sliding hiatal hernia, salmon pink tissue consistent with short segment muñoz mucosa noted, bx taken . schatzki ring also noted Stomach: Normal mucosa. Biopsies were obtained. Grade 2 flap valve on retroflexed examination of the cardia. Duodenum: Normal bulb and descending duodenum, bx taken Intervention: Biopsies as noted above, COLONOSCOPY Instrument: Olympus variable stiffness adult scope 190L Colonoscopy Monitoring: Vital signs and clinical assessment, continuous EKG monitoring, Pulse oximetry, Carbon Dioxide monitoring and blood pressure monitoring were done throughout the procedure. Colon withdrawal time was 9 minutes. Procedure: The patient was placed in the left lateral decubitis position and pre-procedure medications were administered. After a digital rectal examination of the ano-rectum, the video colonoscope was inserted into the rectum and advanced through the colon to the cecum/TI. The colonoscope was slowly withdrawn in a retrograde panoramic fashion and the colon mucosa was carefully examined including a retroflexed view of the rectum. Findings and interventions are described below. Procedure Difficulty:moderate Findings: Terminal Ileum-normal, bx taken random colon bx taken from right and left colon Cecum:normal Ascending Colon: normal Transverse Colon -normal Descending Colon:normal Sigmoid Colon: normal Rectum: Retroflexion with large internal hemorrhoids, grade I Anorectum - normal Colon preparation: Winside Bowel Preparation Scale Right colon; 2 Transverse colon: 2 Left colon; 2 (0 = Unprepared colon segment with mucosa not seen due to solid stool that cannot be cleared. 1 = Portion of mucosa of the colon segment seen, but other areas of the colon segment not well seen due to staining, residual stool and/or opaque liquid. 2 = Minor amount of residual staining, small fragments of stool and/or opaque liquid, but mucosa of colon segment seen well. 3 = Entire mucosa of colon segment seen well with no residual staining, small fragments of stool or opaque liquid) Impression and Post Procedure Diagnosis: Endoscopy Findings: hiatal hernia schatzki ring muñoz esophagus--tissue cypher also sent Colonoscopy Findings: internal hemorrhoids Plan: Await Pathology results Repeat Colonoscopy in 10 years or earlier if clinically indicated High fiber diet leaflet avoid straining at stool, epsom salts and sitz bath, anusol supps or cream if Muñoz pos then repeat EGD 3-5 yrs check if taking PPI PATHOLOGY RESULTS Addendum #1 TissueCypher: Risk class Intermediate; risk score 5.5 See report in its entirety in the EMR - Reports/Pathology section as a scanned report (camera icon). If appropriate, a copy has also been sent to the ordering provider's office. Electronically Signed By: Christian Smart MD 10/02/24 [id number] Diagnosis A. Duodenum, biopsy: Small intestinal mucosa within normal limits. B. Stomach, biopsy: Antral-type and oxyntic mucosa with mild chronic inactive inflammation; no Helicobacter organisms seen. C. EG junction, biopsy: - Muñoz esophagus with background moderate chronic inactive inflammation. - No dysplasia seen. - Active esophagitis (maximum eosinophil count 10 per high powered field). D. Esophagus, distal, biopsy: Active esophagitis (maximum eosinophil count 18 per high powered field). E. Terminal ileum, biopsy: Terminal ileal mucosa within normal limits. F. Colon, right, biopsy: Colonic mucosa within normal limits. G. Colon, left, biopsy: Colonic mucosa within normal limits. Comment: TissueCypher results will be addended (part C) TODAY'S VISIT Patient is here today for follow-up and to discuss upper endoscopy and colonoscopy results. Patient reports that he spoke to Dr. Rhodes already and was given results of the upper endoscopy. Patient will need to go for ablation which will be scheduled soon. Will send a message to surgical schedulers today. Patient reports that he is taking pantoprazole every day. His symptoms are suppressed for the most part. Occasionally depending on what he eats he might have acid reflux otherwise patient denies any dyspepsia, dysphagia or odynophagia. Patient reports occasional rectal burning when he has a bowel movement. Patient denies melena, hematochezia, unintentional weight loss or ribbon like stools. Colonoscopy without polyps. [facility] Medical History Insomnia Seasonal allergies GERD (gastroesophageal reflux disease) Constipation Hemorrhoids that prolapse with straining, but retract spontaneously HTN (hypertension) Surgical History History of esophagogastroduodenoscopy (EGD) Hx of brain surgery History of cholecystectomy History of surgery of head Family History Maternal Uncle Stomach cancer Paternal Grandfather Colon cancer Social History Household Members Other:: mother Housing: Apartment Are you a primary critical care paramedic to a significant other at home: No Do you presently have visiting nurse or other home services: No Patient Tobacco Use Status: Former Tobacco user Tobacco use type: Cigarette Review of Systems Const Denies weight gain and Denies weight loss ENT Reports no additional complaints, Denies dysphagia and Denies odynophagia Card Reports no additional complaints Resp Reports no additional complaints GI Reports abdominal pain (epigastric), Denies belching, Denies melena, Reports bloating, Reports hematochezia, Denies change in bowel habits, Reports constipation, Denies dysphagia, Denies excessive flatus, Reports dyspepsia, Reports heartburn, Denies diarrhea, Reports loose stools, Denies nausea, Denies odynophagia and Denies vomiting Reports no additional complaints Musc Reports no additional complaints Neuro Reports no additional complaints Psych Reports no additional complaints Endo Reports no additional complaints Physical Exam Vital Signs: Last Vital Signs Pulse 64 10/09/24 16:30 BP 136/90 H 10/09/24 16:30 Pulse Ox 98 10/09/24 16:30 Oxygen Delivery Method Room Air 10/09/24 16:30 BMI result Body Mass Index 28.7 Const General: healthy appearing, no acute distress and well developed Nutritional Appearance: well nourished Orientation/consciousness: patient oriented x3 Resp Effort & Inspection: normal respiratory effort, able to speak in complete sentences, no tracheal deviation and symmetric chest movement Auscultation: clear to auscultation bilaterally Cardio Rate: regular rate GI Inspection: Yes normal to inspection and No distended Palpation (GI): Soft to palpation, not firm, nontender and No hepatosplenomegaly present Auscultation: normal bowel sounds General: Yes no CVA tenderness Back/Spine/Pelvis Back: no CVA tenderness Skin General skin exam: elasticity normal, turgor normal and dry skin Neuro General: patient oriented x3 Psych Appearance: grossly normal Mental Status: mental status grossly normal Assessment & Plan Assessment & Plan (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 Category: Medical Qualifiers: Muñoz's esophagus type: without dysplasia Qualified Code(s): K22.70 - 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 (2) Hemorrhoids that prolapse with straining, but retract spontaneously: Code(s): K64.1 - Second degree hemorrhoids Category: Medical (3) Postprandial epigastric pain: Code(s): R10.13 - Epigastric pain (4) Gastroesophageal reflux disease: Code(s): K21.9 - Gastro-esophageal reflux disease without esophagitis Qualifiers: Esophagitis presence: esophagitis presence not specified Qualified Code(s): K21.9 - Gastro-esophageal reflux disease without esophagitis (5) Postprandial diarrhea: Code(s): K52.9 - Noninfective gastroenteritis and colitis, unspecified Plan Message sent to surgical schedulers to book procedure for patient. Patient will continue pantoprazole. Continue avoiding dietary triggers and late night snacking. Staying upright for minimum 3 hours after meals discussed with patient. Continue taking Dulcolax as needed for constipation. May use Proctosol as needed for hemorrhoids. Patient will follow-up in the office after the procedure, sooner on as needed basis. Patient is agreeable to this plan and verbalizes understanding of instructions. He was given the opportunity to ask questions and all questions answered. 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
--- OUTSIDE RECORDS SUMMARY | 2024-10-09 16:28 | XMS_ITS | Clinical Summary ---
Author Organization [employer] Address [address] [facility] [address] [place] [address] Care Team Providers Care Records Management Coordinator Name Role Phone Kavin Graham MD Primary Care Provider [phone] Allergies Active Allergy Reactions Criticality Noted Date Comments Aspirin 12/18/2014 Medications Blood Pressure kitIndications:El evated blood pressure reading 1 Units in the morning. 1 kit 3 Active hydrocortisone (Anusol-HC) 2.5 % rectal creamIndications: Bleeding hemorrhoid Insert into the rectum 2 times daily. 28 g 2 3 Active cetirizine (ZyrTEC) 10 MG tabletIndications :Seasonal [...] TIMES A DAY 100 g 4 Active amLODIPine (Norvasc) 10 MG tabletIndications :Hypertension, unspecified type TAKE 1 TABLET BY MOUTH EVERY DAY IN THE MORNING 90 tablet 1 5 Active Active Problems Problem Noted Date Diagnosed Date Hypertension 03/16/2023 Gastroesophageal reflux disease 05/12/2022 Tenesmus 05/12/2022 Lower abdominal pain 05/12/2022 Assessment & Plan (05/12/2022 8:47 PM EST): Chronic abdominal pain now with tenesmus. Discussed importance w/ compliance of fup with his PCP. Broad differential, will start with labs, Hyperactive bowel movements. Reports prior hx of needing EGDs in [facility] for persistent GERD despite PPI tx. [...] Encounters Date Type Department Care Team Description 10/08/2024 Population Health Risk Score Community [facility] (C[facility]) Department [address] [phone] Provider, Population Health Generic 09/24/2024 Orders Only [facility] [address] [place] [address] Kavin Graham MD Closed avulsion fracture of medial malleolus with delayed healing, right (Primary Dx) 09/24/2024 Telephone [facility] [address] [place] [address] Kavin Graham MD Referral 08/31/2024 Refill [facility] [address] [place] [address] Kavin Graham MD Hypertension, unspecified type 08/16/2024 Telephone [facility] [address] [place] [address] Kavin Graham MD Transition Of Care (Tcm) from Last 3 Months Immunizations Immunization Administration Dates Next Due Hep A, Adult [...] housing situation today? I have enrique wesley 11/16/[address] you li [...] 79 01/24/2024 3:57 PM EDT Temperature 36.6 C (97.8 F) 01/24/2024 3:34 PM EDT Respiratory Rate 20 01/24/2024 3:34 PM EDT Oxygen Saturation 98% 01/24/2024 3:34 PM EDT Inhaled Oxygen Concentration - - Weight 112 kg (248 lb) 01/24/2024 3:34 PM EDT Height 198.1 cm (6' 6 ) 01/24/2024 3:34 PM EDT Body Mass Index 28.66 01/24/2024 3:34 PM EDT Plan of Treatment Upcoming Encounters Date Type Department Care Team (Late st Contact Info) Description 11/27/2024 2:45 PM EDT Office Visit [facility] [address] [place] [address] Kavin Graham MD [address] [place], [place] [phone] Health Maintenance Due Date Last Done Comments CT Colonography 1980 FIT DNA/Cologuard 1980 FIT 1979 FOBT 1980 Sigmoidoscopy 1980 Alcohol/Substance Use Screening 1991 Family Planning (PISQ) 12/23/1994 HPV Vaccines (1 - Male 3-dos e series) 12/23/1994 Hepatitis C Screening 12/23/1997 COVID-19 Vaccine (3 - 202-2 5 season) 2023 02/13/2021, 01/16/2021 SDOH Screening 11/15/2024 11/16/2023 Depression Screening 11/22/2024 11/23/2023, 11/23/2023 Tobacco Screening 11/22/2024 11/23/2023 Influenza Vaccine (#1) 2024 , 03/02/2015, 02/03/2012 Disability Screening 06/17/2025 06/17/2024 Lipid Panel 11/22/2028 11/23/2023, 05/27/2022 Zoster Vaccines (1 of 2) 12/23/2029 DTaP/Tdap/Td Vaccines (3 - T d or Tdap) 05/16/2030 05/16/2020, 12/09/2016, 05/03/2011 Colonoscopy 08/14/2034 Colorectal Cancer Screening 08/14/2034 RSV Patients and Patients Aged 60 years [...] patient's age to complete this topic Meningococcal B Vaccine Aged Out No l onger eligible based on patient's age to complete this topic Meningococcal Vaccine Aged Out No hussain torito eligible based on patient's age to complete this topic Pneumococcal Vaccine: Pediatrics (0 to 5 Years) and At-Risk Patients (6 to 49) Years Aged Out No longer eligible b ased on patient's age to complete this topic RSV under 20 months Aged Out No longe r eligible based on patient's age to complete this topic Rotavirus Vaccines Aged Out No longer eligible based on patient's age to complete this topic Procedures Procedure Name Priority Date/Time Associated Diagnosis Comments HEMATOXYLIN AND EOSIN STAIN Routine 08/14/2024 12:51 PM EDT HIV 1/2 ANTIGEN/ANTIBODY, FOURTH GENERATION W/RFL Routine 11/23/2023 3:29 PM EDT Hypertension, unspecified type LIPID PANEL, STANDARD Routine 11/23/2023 3:29 PM EDT Hypertension, unspecified type from Last 3 Months or Most Recently Relevant to Health Maintenance Results * Hematoxylin and Eosin Stain (08/14/2024 12:51 PM EDT) 08/14/2024 12:5 1 PM EDT 08/14/2024 1:21 PM EDT [facility] - 10/02/2024 1:38 PM EDT ----- ------- Name: Saul Birminghamses Age/Sex: 43/M : 1980 Unit#: [id number] Attend Dr: Aurora Rhodes MD Re08/14/24 Status: [facility] Location: [facility] Disch: ----- ------- SPEC : [id number] RECD: 08/14/24 STATUS: AMARA AL NUM: [id number] NICCI: 08/14/24-[address] [facility] [address]: Aurora Rhodes MD ENTERED: 08/14/24 SP TYPE: Surgical OTHR DR: Kavin Graham MD ORDERED: HE Stain/, Gross Micro L4/7, IHC, Special st. 2/2, H. pylori, Eso bx BA w/exc, AB/PAS/2 COMMENTS: 8 unstained slides (C) sent to [employer] for [facility] on 08/19/24. Addendum Addendum 1 Entered: 10/02/24 [facility]: Risk class Intermediate; risk score 5.5 See report in its entirety in the EMR - Reports/Pathology section as a scanned report (camera icon). If appropriate, a copy has also been sent to the ordering provider's office. Addendum Signed (signature on file) Christian Smart MD 10/02/241337 ----- ------- Diagnosis A. Duodenum, biopsy: Small intestinal mucosa within normal limits. B. Stomach, biopsy: Antral-type and oxyntic mucosa with mild chronic inactive inflammation; no Helicobacter organisms seen. C. 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 - No dysplasia seen. - Active esophagitis (maximum eosinophil count 10 per high powered field). D. Esophagus, distal, biopsy: Active esophagitis (maximum eosinophil count 18 per high powered field). E. Terminal ileum, biopsy: Terminal ileal mucosa within normal limits. F. Colon, right, biopsy: Colonic mucosa within normal limits. G. Colon, left, biopsy: Colonic mucosa within normal limits. Comment: [facility] results will be addended (part C). CONTINUED ON NEXT PAGE ----- ------- Name: Phan Birmingham Age/Sex: 43/M : 1980 Unit#: [id number] Attend Dr: Aurora Rhodes MD Re08/14/24 Status: [facility] Location: [facility] Disch: ----- ------- SPEC : [id number] RECD: 08/14/24-1321 STATUS: AMARA [facility] NUM: [id number] NICCI: 08/14/24-[address] [facility] [address]: Aurora Rhodes MD ENTERED: 08/14/24-1004 SP TYPE: Surgical OTHR DR: Kavin Graham MD ORDERED: HE Stain/21, Gross Micro L4/7, IHC, Special st. 2/2, H. pylori, Eso bx BA w/exc, AB/PAS/2 COMMENTS: 8 unstained slides (C) sent to [employer] for [facility] on 08/19/24. Clinical History Pre-Op Dx: Rectal bleeding, GERD Post-Op Dx: Hiatal hernia, Garcia's, Schatzki's ring, internal hemorrhoids Microscopic Description A-G. Microscopic sections examined. No metaplastic changes are seen, supported by AB/PAS stains (A and B); no Helicobacter organisms are seen, supported by H. pylori immunostain (B). Material Received A. Duodenum bx's B. Stomach bx's C. EG junction D. Distal esophagus E. TI bx's F. Right sided colon bx's G. Left sided colon bx's Gross Description Received in seven parts. Part A: Received in formalin labeled duodenum are 2 rodrigez-pink irregular and rectangular tissue fragments measuring 0.2 and 0.3 cm, submitted in toto in a cassette labeled A. Part B: Received in formalin labeled stomach bx's are 3 rodrigez irregular tissue fragments ranging from 0.1-0.25 cm, submitted in toto in a cassette labeled B. Part C: Received in formalin labeled EG junction are 2 rodrigez-pink irregular tissue fragments each measuring 0.2 cm, submitted in toto in a cassette labeled C. Part D: Received in formalin labeled distal esophagus are 3 marshall-rodrigez irregular tissue fragments ranging from 0.1-0.3 cm, submitted in toto in a cassette labeled D. Part E: Received in formalin labeled TI bx's are 2 velvety, rodrigez-pink irregular and rectangular tissue fragments measuring 0.2 and 0.4 cm, submitted in toto in a cassette labeled E. CONTINUED ON NEXT PAGE ----- ------- Name: Phan Birmingham Age/Sex: 43/M : 1980 Unit#: [id number] Attend Dr: Aurora Rhodes MD Re08/14/24 Status: [facility] Location: [facility] Disch: ----- ------- SPEC : [id number] RECD: 08/14/24-1320 STATUS: AMARA AL NUM: [id number] NICCI: 08/14/24-[address]: Aurora Rhodes MD ENTERED: 08/14/24-0893 SP TYPE: Surgical OTHR DR: Kavin Graham MD ORDERED: HE Stain/21, Gross Micro L4/7, IHC, Special st. 2/, H. pylori, Eso bx BA w/exc, AB/PAS/2 COMMENTS: 8 unstained slides (C) sent to [employer] for [facility] on 08/19/24. Gross Description (Continued) Part F: Received in formalin labeled right sided colon bx's are 4 rodrigez irregular and rectangular tissue fragments ranging from 0.1-0.5 cm, submitted in toto in a cassette labeled F. Part G: Received in formalin labeled left sided colon bx's are 2 rodrigez rectangular tissue fragments each measuring 0.3 cm, submitted in toto in a cassette labeled G. CEDS Special studies ordered and performed: Immunostain for H. pylori on B; AB/PAS stains on A and B Copies To: Kavin Graham MD [address] [address] Aurora Rhodes MD [facility] [address] [place] [phone] ----- ------- Signed (signature on file) Christian Smart MD 08/16/24 1556 ----- ------- END OF REPORT us Generic External Data Provider LAB BLOOD ORDERAB LES Final Result Performing Organization Address [facility] Co de Phone Number [facility] [address] [place] [address] [phone] HIV-1/2 Antigen and Antibodies, Fourth Generation, with Reflexes (11/23/2023 3:29 PM EDT) Pathologist [facility] HIV AB/AG Nonreactive Nonreactive [facility] Comment:HIV-1 p24 Ag and/or HIV-1/HIV-2 Ab not detected.A test result that is nonreactive does not exclude thepossibility of exposure to or infection with HIV-1 and/orHIV-2. Nonreactive results in this assay for individualswith prior exposure to HIV-1 and/or HIV-2 may be due toantigen and antibody levels that are below the limit ofdetection of this assay.The [employer] HIV Ag/Ab Combo assay result andsupplemental assay results should be interpreted inconjunction with the patient's clinical presentation,history and other laboratory results. If the results areinconsistent with clinical evidence, additional testing issuggested to confirm the result. Blood Venous blood specimen / Unknown 11/23/2023 3:29 PM EDT 11/23/2023 5:29 PM EDT us Kavin Graham MD LAB BLOOD ORDERABLES Final Result Performing Organization Address [facility] Co de Phone Number [facility] [address] [place] [phone] [phone] * (ABNORMAL) Lipid Panel, Standard (11/23/2023 3:29 PM EDT) Pathologist [facility] Triglycerides 134 <150 mg/dL [facility] Comment:Desirable Triglyceri de: less than 150 mg/dLBorderline High Triglyceride 150-199 mg/dLHigh Triglyceride: 200-499 mg/dLVery High Triglyceride: greater than or equal to 5OO mg/dL Cholesterol 203(H) <200 mg/dL [facility] Comment:Desirable Cholestero l: less than 200 mg/dLBorderline High Cholesterol: 200-239 mg/dLHigh Cholesterol: greater than 239 mg/dL LDL Cholesterol Calculated 129(H) <100 mg/dL [facility] Comment:Desirable LDL: less than 100 mg/dLNear Optimal/Above Optimal LDL: 110- 129 mg/dLBorderline High LDL: 130-159 mg/dLHigh LDL: 160-189 mg/dLVery High LDL: greater than or equal to 190 mg/dL HDL Cholesterol 48 >40 mg/dL [facility] Comment:Desirable HDL: great er than 40 mg/dL Note: This HDL assay may give artificially low results in patients with liver disease. Blood Venous blood specimen / Unknown 11/23/2023 3:29 PM EDT 11/23/2023 5:29 PM EDT Kavin Graham MD LAB BLOOD ORDERABLES Final Result [facility] [address] [place] [phone] from Last 3 Months or Most Recently Relevant to Health Maintenance Insurance [facility] [employer] [facility] Care Teams Records Management Coordinator Relationship Specialty Start Date End Date Kavin Graham MD [address] [place] [address] [place] [address] PCP - General Internal Medicine 09/17/20
--- OUTSIDE RECORDS SUMMARY | 2024-10-09 16:28 | XMS_ITS ---
Author Name [facility] Organization Unknown Encounters Encounter Type Encounter Reason Primary Diagnosis Location Date Ambulatory [facility] [place] 09/23/2024
[2024-10-09 16:30] VITALS: BP 136/90; PULSE 64; O2SAT 98; BMI 28.7
== END 2024-10-10 14:23 | disposition home or self-care (01) ==
LOC: HO.HGI 16:27
PROVIDERS: PCP Internal Medicine; Visit Provider Nurse Practitioner Family
DX: K22.70 Barrett's esophagus without dysplasia (principal); K64.1 Second degree hemorrhoids; R10.13 Epigastric pain; K21.9 Gastro-esophageal reflux disease without esophagitis; K52.9 Noninfective gastroenteritis and colitis, unspecified
CPT/HCPCS: 99214

== ENCOUNTER → 2024-10-09 16:26 | Outpatient (BNVA) | payer MEDICAID, SELFPAY | PROVIDERS: PCP Internal Medicine; Visit Provider Nurse Practitioner Family | DX: Z71.2 Person consulting for explanation of examination or test findings (principal); K22.70 Barrett's esophagus without dysplasia; K64.1 Second degree hemorrhoids; R10.13 Epigastric pain; K21.9 Gastro-esophageal reflux disease without esophagitis; K52.9 Noninfective gastroenteritis and colitis, unspecified | CPT/HCPCS: 99212 ==

== ENCOUNTER 2024-12-17 08:07 | Day surgery (SDC) | payer MEDICAID, SELFPAY ==
--- OUTSIDE RECORDS SUMMARY | 2024-12-10 14:45 | XMS_ITS | Encounter Summary ---
Author Organization [employer] Address [address] [place] [address] Care Team Providers Care Drug Abuse Counselor Name Role Phone Kavin Graham MD Primary Care Provider +1 [phone] Reason for Referral * Consultation (Routine) - Pending Review Specialty Diagnoses / Procedures Referred By Obdulia lowe Referred To Contact General Surgery Diagnoses Umbilical hernia without obstruction and without gangrene Kavin Graham MD [address] [place] [address] Phone: tel: fax: Referral ID Status Reason Start Date Expiration Date Visits Requested Visits Authorized [id number] Pending Review Specialty Services Required 12/11/2024 12/11/2025 1 1 Reason for Visit * Reason Comments Annual Exam Hypertension Encounter Details Date Type Department Care Team ([facility] st Contact Info) Description 12/10/2024 2:45 PM EDT Office Visit [facility] [address] [place] [address] Kavin Graham MD [address] [place] [address] 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 (Primary Dx); Annual physical exam; Bleeding hemorrhoid; Other insomnia; Primary hypertension; Dietary counseling; Exercise counseling; Bilateral impacted cerumen; Toe web intertrigo; Umbilical hernia without obstruction and without gangrene; Varicocele Social History Tobacco Use Types Packs/Day Years Used Date Smoking Tobacco: Former Cigarettes Smokeless Tobacco: Never Depression Answer Date Recorded Patient Health Questionnaire-9 Score 0 12/10/2024 Patient Health Questionnaire-9 Score 0 12/10/2024 Last PHQ-9: Questionnaire Data Not on file 0 12/10/2024 Housing Stability Answer Date Recorded What is your housing situation today? I do not have housing (Staying with others, in a hotel, in a long-term, living outside on the street, on a beach, in a car, or in a park 11/20/[address] you li ve. Do you have problems with any of the following? None of the above 11/20/2024 Food Insecurity Answer Date Recorded Within the past 12 months, y ou worried that your food would run out before you got money to buy more: Never True 11/20/2024 Within the past 12 months,th e food you bought just didn't last and you didn't have enough money to get more: Never True Transportation Answer Date Recorded In the past 12 months, has l ack of transportation kept you from medical appts, meetings, work or from getting things needed for daily living? No 11/20/2024 Utilities Answer Date Recorded In the past 12 months, has t he electric, gas, oil or water company threatened to shut off services in your home? No 11/20/2024 Depression Answer Date Recorded Patient Health Questionnaire-2 Score 0 12/10/2024 Internet Access Answer Date Recorded Internet Access Q1 Yes 11/20/2024 Internet Access Q2 Not on file 11/20/2024 Sex and Gender Information Value Date Recorded Sex Assigned at Male 01/31/2022 10:24 AM EDT Legal Sex Male 10:24 AM EDT Gender Identity Male 01/31/2022 10:24 AM EDT Sexual Orientation Straight 11/26/2024 3: 45 PM EDT documented as of this encounter Last Filed Vital Signs Vital Sign Reading Time Taken Comments Blood Pressure 136/80 12/10/2024 2:41 PM EDT Pulse 91 12/10/2024 2:41 PM EDT Temperature 36.6 C (97.9 F) 12/10/2024 2:41 PM EDT Respiratory Rate 20 12/10/2024 2:41 PM EDT Oxygen Saturation 98% 12/10/2024 2:41 PM EDT Inhaled Oxygen Concentration - - Weight 126 kg (278 lb) 12/10/2024 2:41 PM EDT Height 198.1 cm (6' 6 ) 12/10/2024 2:41 PM EDT Body Mass Index 32.13 12/10/2024 2:41 PM EDT documented in this encounter Functional Status * Over the past 2 weeks, how often have you been bothered by any of the following problems? Question Answer Date of Assessment Author Patient Health Questionnaire-2 Score 0 12/2024 2:43 PM EDT Laura Swanson MA * Little interest or pleasure in doing things Answer Date of Assessment Author Not at all 12/10/2024 2:43 PM EDT Waylon Swanson MA * Feeling down, depressed, or hopeless Answer Date of Assessment Author Not at all 12/10/2024 2:43 PM EDT Waylon Swanson MA * Trouble falling or staying asleep, or sleeping too much Answer Date of Assessment Author Not at all 12/10/2024 2:43 PM EDT Waylon Swanson MA * Feeling tired or having little energy Answer Date of Assessment Author Not at all 12/10/2024 2:43 PM EDT Waylon Swanson MA * Poor appetite or overeating Answer Date of Assessment Author Not at all 12/10/2024 2:43 PM EDT Waylon Swanson MA * Feeling bad about yourself - or that you are a failure or have let yourself or your family down Answer Date of Assessment Author Not at all 12/10/2024 2:43 PM EDT Waylon Swanson MA * Trouble concentrating on things, such as reading the newspaper or watching television Answer Date of Assessment Author Not at all 12/10/2024 2:43 PM EDT Waylon Swanson MA * Moving or speaking so slowly that other people could have noticed? Or the opposite - being so fidgety or restless that you have been moving around a lot more than usual. Answer Date of Assessment Author Not at all 12/10/2024 2:43 PM EDT Waylon Swanson MA * Thoughts that you would be better off or hurting yourself in some way Answer Date of Assessment Author Not at all 12/10/2024 2:43 PM EDT Waylon Swanson MA * Patient Health Questionnaire-9 Score Answer Date of Assessment Author 0 12/10/2024 2:43 PM EDT Waylon Swanson MA documented as of this encounter Progress Notes * Kavin Graham MD - 12/10/2024 2:45 PM EDT RADHA Birmingham is a 43 y.o. male who presents for Annual Exam and Hypertension. Hypertension Pertinent negatives include no headaches or palpitations. Last office visit January 24, 2024. Since then patient was evaluated On March 2024 by [facility] gastroenterology for his reflux disease. He was advised to stop taking omeprazole and was started on famotidine 2 times a day. Advised to stop famotidine 24-48 hours before coming for H. pylori testing. It was recommended also to check lipase and transglutaminase to rule out pancreatitis and celiac disease. H. pylori was negative. Lipase 16, tissue transglutaminase IgA less than 1. Reevaluated by [facility] gastroenterology on July. The plan was to continue famotidine 2 times a day and to avoid dietary triggers and late-night snacking. For his occasional loose stool postprandially patient was encouraged to stay away from any fatty food. To increase fiber in his diet. Also advised itpy-rns-[id number] fiber supplement. An upper endoscopy and colonoscopy were recommended. These procedures were done on August 14, 2024: Larynx normal, esophagus gastroesophageal junction at 39 centimeter, diaphragm at 41 cm consistent with 2 cm sliding hiatal hernia, salmon-pink tissue consistent with short segment Garcia's mucosa. Biopsy taken. Stomach, colon normal mucosa, biopsy were obtained grade 2 flap valve on retroflex examination of the cardia Duodenum: Normal bulb and descending duodenum, biopsy taken Colonoscopy terminal ileum normal colon biopsy taken random colon biopsy taken from right and left colon Cecum: Normal Ascending colon: Normal Transverse colon: Normal descending colon: Normal Rectum retroflexion with large internal hemorrhoids, grade 1. Anorectum normal Evaluated at urgent care for swelling of the right ankle of 2 weeks duration on September 24, 2024. . Referred to orthopedic surgery. An orthopedic boot was placed and pt was advised to wear it when walking or bearing weight Treated by ortho w/ the impression of an ankle sprain. Patient is now doing better. Denies any painduring the evaluation today. Reevaluated at [facility] gastroenterology on October 09, 2024 patient will need a repeat colonoscopy in 10 years Advised to continue with high-fiber diet and to avoid straining at stool, Epsom salt and sitz bath,Anusol suppository or cream. Pt is only c/o a tender bulge of the umbilicus. No redness/swelling. Problem List[1] Allergies[2] Medications Ordered Prior to Encounter[3] Review of Systems Constitutional: Negative for activity change, appetite change, chills and diaphoresis. HENT: Negative for dental problem, drooling and ear discharge. Eyes: Negative for pain and itching. Respiratory: Negative for cough, choking and chest tightness. Cardiovascular: Negative for palpitations and leg swelling. Gastrointestinal: Negative for abdominal pain, anal bleeding and blood in stool. Endocrine: Negative for cold intolerance and heat intolerance. Genitourinary: Negative for flank pain, frequency and genital sores. Musculoskeletal: Negative for back pain. Neurological: Negative for light-headedness, numbness and headaches. Psychiatric/Behavioral: Negative for agitation, confusion and decreased concentration. OBJECTIVE Vitals: 12/10/24 1441 BP: 136/80 BP Location: Left arm Patient Position: Sitting BP Cuff Size: Adult Pulse: 91 Resp: 20 Temp: 97.9 ??F (36.6 ??C) TempSrc: Oral SpO2: 98% Weight: 278 lb (126 kg) Height: 6' 6 (1.981 m) Physical Exam Constitutional: General: He is not in acute distress. Appearance: Normal appearance. He is obese. He is not ill-appearing, toxic- appearing or diaphoretic. HENT: Head: Normocephalic. Right Ear: Tympanic membrane normal. There is impacted cerumen. Left Ear: Tympanic membrane normal. There is impacted cerumen. Nose: Nose normal. Eyes: General: No scleral icterus. Right eye: No discharge. Left eye: No discharge. Pupils: Pupils are equal, round, and reactive to light. Cardiovascular: Rate and Rhythm: Normal rate and regular rhythm. Heart sounds: No murmur heard. No friction rub. No gallop. Pulmonary: Effort: Pulmonary effort is normal. No respiratory distress. Breath sounds: Normal breath sounds. No stridor. No wheezing, rhonchi or rales. Chest: Chest wall: No tenderness. Abdominal: General: Abdomen is flat. There is no distension. Palpations: Abdomen is soft. There is no mass. Tenderness: There is no abdominal tenderness. There is no right CVA tenderness, guarding or rebound. Hernia: No hernia is present. Genitourinary: Penis: Normal. Testes: Right: Varicocele present. Left: Varicocele present. Epididymis: Right: Normal. Left: Normal. Musculoskeletal: General: Normal range of motion. Cervical back: Normal range of motion. Skin: General: Skin is warm. Comments: Intertrigo of the right fourth toe web Neurological: General: No focal deficit present. Mental Status: He is alert. Psychiatric: Mood and Affect: Mood normal. Behavior: Behavior normal. Assessment/Plan Assessment/Plan Diagnoses and all orders for this visit: 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 Comments: Continue with the recommendation as per The clinical staff rn Annual physical exam Comments: Normal exam Patient is advised to maintain a healthy and balanced diet. Orders: - CBC auto differential; Future - Comprehensive Metabolic Panel; Future - Lipid Panel, Standard; Future - TSH with Reflex to Free T4; Future - Chlamydia/N. Gonorrhoeae RNA, TMA, Urogenitial - HIV-1/2 Antigen and Antibodies, Fourth Generation, with Reflexes; Future - Hepatitis C Antibody with Reflex to HCV, RNA, Quantitative, Real-Time PCR; Future - RPR (Monitor) with Reflex to Titer; Future - Urinalysis w/reflex microscopic; Future - Trichomonas vaginalis RNA, Qualitative, TMA, Males; Future Bleeding hemorrhoid Comments: Patient denies bleeding with the changes made to his diet Sitz bath and Anusol to use as needed. Call the office in case of bleeding. Orders: - hydrocortisone (Anusol-HC) 2.5 % rectal cream; Insert into the rectum 2 times daily. Other insomnia Comments: Continue with melatonin as directed. Appropriate sleep hygiene recommended. Orders: - Melatonin 10 MG capsule; TAKE 1 CAPSULE BY MOUTH EVERYDAY AT BEDTIME Primary hypertension Comments: Uncontrolled Resume Home BP medication. Orders: - chlorthalidone (Hygroton) 25 MG tablet; Take 1 tablet (25 mg) by mouth Once per day. Dietary counseling Exercise counseling Dietary Recommendations: Fruits, vegetables, whole grains, protein foods, and fat-free or low-fat dairy products are healthychoices. Eat different types of protein foods in your diet. This can include seafood, lean meats, poultry, beans, peas, lentils, nuts, seeds, soy products, and eggs. Limit foods and beverages higher in added sugars, saturated fat, and sodium. Exercise Recommendations: At least 150 minutes of moderate-intensity physical activity per week, or an equivalent combinationof moderate- and vigorous-intensity activity Bilateral impacted cerumen - carbamide peroxide (Debrox) 6.5 % otic solution; Administer 5-10 drops into affected ear(s) 2 times daily for 4 days. Toe web intertrigo - nystatin (Nystop) 817296 UNIT/GM powder; Apply topically 2 times daily. Umbilical hernia without obstruction and without gangrene Varicocele Comments: stable Non tender. We will observe for now. [1] Patient Active Problem List Diagnosis Gastroesophageal reflux disease [place] Lower abdominal pain Encounter for health-related screening Elevated blood pressure reading Hypertension [2] Allergies Allergen Reactions Aspirin [3] Current Outpatient Medications on File Prior to Visit Medication Sig Dispense Refill amLODIPine (Norvasc) 10 MG tablet TAKE 1 TABLET BY MOUTH EVERY DAY IN THE MORNING 90 tablet 1 Blood Pressure kit 1 Units in the morning. 1 kit 0 cetirizine (ZyrTEC) 10 MG tablet Take 1 tablet (10 mg) by mouth Once per day. 30 tablet 11 chlorthalidone (Hygroton) 25 MG tablet TAKE 1 TABLET (25 MG) BY MOUTH ONCE PER DAY. 90 tablet 0 Diclofenac Sodium 1 % gel TO APPLY TO THE AFFECTED AREA 3 TIMES A DAY 100 g 0 hydrocortisone (Anusol-HC) 2.5 % rectal cream Insert into the rectum 2 times daily. 28 g 2 Melatonin 10 MG capsule TAKE 1 CAPSULE BY MOUTH EVERYDAY AT BEDTIME 90 capsule 1 omeprazole (PriLOSEC) [address] capsule Take 1 capsule (40 mg) by mouth before breakfast. Do not crush or chew. 90 capsule 1 [DISCONTINUED] chlorthalidone (Hygroton) 25 MG tablet Take 1 tablet (25 mg) by mouth Once per day. 30 tablet 11 No current facility-administered medications on file prior to visit. documented in this encounter Miscellaneous Notes * Patient Education Note - Kavin Graham MD - 12/10/2024 7:08 PM EDT Images from the original note were not included. Patient Education Table of Contents Garcia's Esophagus: What to Know To view videos and all your education online visit, [email or web address] or scan this QR code with your smartphone. Access to this content will in one year. Garcia's Esophagus: What to Know Your esophagus is the part of your body that moves food from your mouth to your stomach. Garcia's esophagus happens when the tissue that lines your esophagus changes or gets damaged. Treatment can help prevent further problems, such as cancer. What are the causes? The exact cause isn't known. In some cases, the tissue in your esophagus may get damaged if you have gastroesophageal reflux disease (GERD). This is when stomach acids flow up from your stomach into your esophagus. What increases the risk? You're more likely to get Garcia's esophagus if: You're male. You're of descent. You're older than 50. You're very overweight. You have a hiatal hernia. This is when part of your stomach pushes into your chest. You smoke. What are the signs or symptoms? You may have no symptoms. If you do have symptoms, they may include: Heartburn. Trouble swallowing. Feeling like food is stuck in your throat. A dry cough. Feeling like you may throw up after you eat. Hiccups. A hoarse voice or sore throat. How is this diagnosed? You may be diagnosed based on a few tests. These include: An upper gastrointestinal (GI) endoscopy. During this test, a tube called an endoscope with a camera on the end is put into your esophagus. A biopsy. This is when a small piece of tissue is removed for testing. How is this treated? You may need to: Take medicines to lessen or stop GERD. Have GI exams often. These can help check that you don't have cancer. Have surgery. This may include: ? Taking out part of the esophagus. ? Taking out any cells that aren't normal. Follow these instructions at home: Eating and drinking Eat more fruits and vegetables. Avoid fatty foods. Eat small meals often rather than large meals. Avoid foods and drinks that cause heartburn. These include: ? Coffee and strong tea. ? Tomatoes and foods made with tomatoes. ? [place] or spicy foods. ? Chocolate and peppermint. Do not drink alcohol. General instructions Take your medicines only as told. If you're being treated for GERD, make sure you take your medicine and follow all instructions as told. Do not smoke, vape, or use nicotine or tobacco. Keep all follow-up visits. Your provider will ask about your symptoms. They may also tell you to get a GI exam. Contact a health care provider if: You have heartburn. You have GERD. You have trouble swallowing. Get help right away if: You have chest pain. You can't swallow. You throw up blood or liquid that looks like coffee grounds. Your poop is bright red or dark. These symptoms may be an emergency. Call 911 right away. Do not wait to see if the symptoms will go away. Do not drive yourself to the hospital. This information is not intended to replace advice given to you by your health care provider. Make sure you discuss any questions you have with your health care provider. Document Released: 2004-06-09 Document Updated: 2023-11-02 Document Reviewed: 2023-11-02 [employer] Patient Education ? 2024 QA on Request. documented in this encounter Plan of Treatment Scheduled Orders Name Type Priority Associated Diagnoses Orde r Schedule CBC auto differential Lab Routine Annual physical exam Expected: 12/10/2024 (Approximate), Expires: 12/10/2025 Comprehensive Metabolic Panel Lab Routine Annual physical exam Expected: 12/10/2024 (Approximate), Expires: 12/10/2025 Lipid Panel, Standard Lab Routine Annual physical exam Expected: 12/10/2024 (Approximate), Expires: 12/10/2025 TSH with Reflex to Free T4 Lab Routine Annual physical exam Expected: 12/10/2024 (Approximate), Expires: 12/10/2025 Chlamydia/N. Gonorrhoeae RNA, TMA, Urogenitial Microbiology Routine Annual physical exam Ordered: 12/10/2024 HIV-1/2 Antigen and Antibodies, Fourth Generation, with Reflexes Lab Routine Annual physical exam Expected: 12/10/2024 (Approximate), Expires: 12/10/2025 Hepatitis C Antibody with Reflex to HCV, RNA, Quantitative, Real-Time PCR Lab Routine Annual physical exam Expected: 12/10/2024, Expires: 12/10/2025 RPR (Monitor) with Reflex to Titer Lab Routine Annual physical exam Expected: 12/10/2024, Expires: 12/10/2025 Urinalysis w/reflex microscopic Lab Routine Annual physical exam Expected: 12/10/2024, Expires: 12/10/2025 Trichomonas vaginalis RNA, Qualitative, TMA, Males Lab Routine Annual physical exam Expected: 12/10/2024, Expires: 12/10/2025 Scheduled Referrals Name Type Priority Associated Diagnoses Orde r Schedule Referral to General Surgery Outpatient Referral Routine Umbilical hernia without obstruction and without gangrene Expected: 12/11/2024 (Approximate), Expires: 12/10/2025 documented as of this encounter Visit Diagnoses Diagnosis 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- Primary Annual physical exam Routine general medical examination at a health care facility Bleeding hemorrhoid Unspecified hemorrhoids with other complication Other insomnia Primary hypertension Unspecified essential hypertension Dietary counseling Dietary surveillance and counseling Exercise counseling Bilateral impacted cerumen Impacted cerumen Toe web intertrigo Umbilical hernia without obstruction and without gangrene Varicocele Scrotal varices documented in this encounter Additional Health Concerns Assessment Noted Time PHQ-9 Depression Total Score: 0 12/11/19 25 2:43 PM EDT documented as of this encounter Care Teams Drug Abuse Counselor Relationship Specialty Start Date End Date Kavin Graham MD [address] [place] [id number] PCP - General Internal Medicine 09/17/20 documented as of this encounter
--- OUTSIDE RECORDS SUMMARY | 2024-12-11 17:01 | XMS_ITS | Encounter Summary ---
Author Organization [employer] Address [address] [place] [address] 7 [place] [address] Care Team Providers Care Scraper Meat Name Role Phone Kavin Graham MD Primary Care Provider [phone] Reason for Referral * Consultation (Urgent) - Closed Specialty Diagnoses / Procedures Referred By Contac t Referred To Contact Orthopaedic Surgery Diagnoses Closed avulsion fracture of medial malleolus with delayed healing, right Kavin Graham MD [address] [place] [address] Phone: tel: fax: Referral ID Status Reason Start Date Expiration Date V isits Requested Visits Authorized [id number] Closed Specialty Services Required 09/24/2024 09/24/2025 1 1 Encounter Details Date Type Department Care Team ([facility] st Contact Info) Description 09/24/2024 Orders Only [facility] [address] [place] [address] Kavin Graham MD [address] [place] [address] Closed avulsion fracture of medial malleolus with delayed healing, right (Primary Dx) Social History Tobacco Use Types Packs/Day Years Used Date Smoking Tobacco: Former Cigarettes Smokeless Tobacco: Never Depression Answer Date Recorded Patient Health Questionnaire-9 Score 6 11/23/2023 Patient Health Questionnaire-9 Score 6 11/23/2023 Last PHQ-9: Questionnaire Data Not on file 0 11/23/2023 Housing Stability Answer Date Recorded What is your housing situation today? I have enrique sing 11/16/[address] you li [...] PM EDT documented as of this encounter Plan of Treatment Scheduled Referrals Name Type Priority Associated Diagnoses Order Schedule Referral to Orthopaedic Surgery Outpatient Referral Urgent Closed avulsion fracture of medial malleolus with delayed healing, right Expected: 09/24/2024 (Approximate), Expires: 09/24/2025 documented as of this encounter Visit Diagnoses Diagnosis Closed avulsion fracture of medial malleolus with delayed healing, right- Primary documented in this encounter Additional Health Concerns Assessment Noted Time PHQ-9 Depression Total Score: 6 11/23/19 24 11:41 AM EDT documented as of this encounter Care Teams Scraper Meat Relationship Specialty Start Date End Date Kavin Graham MD [address] [place] [address] PCP - General Internal Medicine 09/17/20 documented as of this encounter
--- OUTSIDE RECORDS SUMMARY | 2024-12-11 17:01 | XMS_ITS | Encounter Summary ---
Author Organization [employer] Address [address] [facility] 7 [place] [address] Care Team Providers Care Strategy Planning Consultant Name Role Phone Kavin Graham MD Primary Care Provider [phone] Reason for Visit * Reason Onset Date Comments Chart Prep 12/09/2024 Encounter Details Date Type Department Care Team ([facility] st Contact Info) Description 12/09/2024 Telephone [facility] [address] [place] [address] Kavin Graham MD [address] [place] [address] Chart Prep Social History Tobacco Use Types Packs/Day Years [...] with others, in a hotel, in a senior care, living outside on the street, on a [...] PM EDT documented as of this encounter Miscellaneous Notes * Telephone Encounter - Dori Oshea MA - 12/09/2024 10:58 AM EDT Chart Prep Labs: not done Images: not applicable Referrals: complete Vaccines due: HPV Screenings: not applicable Overdue care gaps: SBIRT, PHQ-9, and Tobacco documented in this encounter Plan of Treatment Not on file documented as of this encounter Visit Diagnoses Not on filedocumented in this encounter Additional Health Concerns Assessment Noted Time PHQ-9 Depression Total Score: 6 11/23/19 24 11:41 AM EDT documented as of this encounter Care Teams Strategy Planning Consultant Relationship Specialty Start Date End Date Kavin Graham MD [address] [place] [address] [place] [address] PCP - General Internal Medicine 09/17/20 documented as of this encounter
--- OUTSIDE RECORDS SUMMARY | 2024-12-11 17:01 | XMS_ITS | Encounter Summary ---
Author Organization [employer] Address [address] [facility] 7 [place] [address] Care Team Providers Care Sight Mounter Name Role Phone Kavin Graham MD Primary Care Provider [phone] Reason for Visit * Reason Comments Med Refill Encounter Details Date Type Department Care Team ([facility] st Contact Info) Description 12/09/2024 Refill [facility] PEDS [address] [place], [place] [phone] Kavin Graham MD [address] [place] [address] Primary hypertension Social History Tobacco Use Types Packs/Day Years [...] with others, in a hotel, in a assisted, living outside on the street, on a [...] as of this encounter Visit Diagnoses Diagnosis Primary hypertension Unspecified essential hypertension documented in this encounter Additional Health Concerns Assessment Noted Time PHQ-9 Depression Total Score: 6 11/23/19 24 11:41 AM EDT documented as of this encounter Care Teams Sight Mounter Relationship Specialty Start Date End Date Kavin Graham MD [address] [place] [phone] PCP - General Internal Medicine 09/17/20 documented as of this encounter
--- OUTSIDE RECORDS SUMMARY | 2024-12-11 17:01 | XMS_ITS | Encounter Summary ---
Author Organization [employer] Address 75 [facility] 7t [place] [address] Care Team Providers Care Mannequin Wig Maker Name Role Phone Kavin Graham MD Primary Care Provider [phone] Encounter Details Date Type Department Care Team ([facility] st Contact Info) Description 04/25/2023 Telephone [facility] [address] [place] [address] Kavin Graham MD [address] [place], [place] [phone] Social History Tobacco Use Types Packs/Day Years [...] on filedocumented in this encounter Care Teams Mannequin Wig Maker Relationship Specialty Start Date End Date Kavin Graham MD [address] [place] [phone] PCP - General Internal Medicine 09/17/20 documented as of this encounter
--- OUTSIDE RECORDS SUMMARY | 2024-12-11 17:01 | XMS_ITS | Encounter Summary ---
Author Organization [employer] Address 75 [facility] 7t [place] [address] Care Team Providers Care Finisher Machine Name Role Phone Kavin Graham MD Primary Care Provider [phone] Encounter Details Date Type Department Care Team (Latest Contact Info) Description 12/10/2024 Travel Social History Tobacco Use Types Packs/Day Years [...] with others, in a hotel, in a group home, living outside on the street, on a [...] PM EDT documented as of this encounter Functional Status * Over the [...] [place] documented as of this encounter Plan of Treatment Not on file documented as of this encounter Visit Diagnoses Not on filedocumented in this encounter Additional Health Concerns Assessment Noted Time PHQ-9 Depression Total Score: 0 12/11/19 25 2:43 PM EDT documented as of this encounter Care Teams Finisher Machine Relationship Specialty Start Date End Date Kavin Graham MD [address] [place] [phone] PCP - General Internal Medicine 09/17/20 documented as of this encounter
--- OUTSIDE RECORDS SUMMARY | 2024-12-11 17:01 | XMS_ITS | Clinical Summary ---
Author Organization [employer] Address 75 [facility] 7t [place] [address] Care Team Providers Care Fish Conservationist Name Role Phone Kavin Graham MD Primary Care Provider [phone] Allergies Active Allergy Reactions Criticality Noted Date Comments Aspirin 12/18/2014 Medications Blood Pressure kitIndications: Elevated blood pressure reading 1 Units in the morning. 1 kit 05/12/19 23 Active cetirizine (ZyrTEC) 10 MG tabletIndicatio ns:Seasonal allergies Take 1 tablet (10 mg) by mouth Once per day. 30 tablet 11 11/23/19 24 Active Diclofenac Sodium 1 % gelIndications: Arthralgia of both hands TO APPLY TO THE AFFECTED AREA 3 TIMES A DAY 100 g 12/20/19 24 Active amLODIPine (Norvasc) 10 MG tabletIndicatio ns:Hypertension , unspecified type TAKE 1 TABLET BY MOUTH EVERY DAY IN THE MORNING 90 tablet 1 09/03/19 25 Active hydrocortisone (Anusol-HC) 2.5 % rectal creamIndication s:Bleeding hemorrhoid Insert into the rectum 2 times daily. 28 g 2 12/11/19 25 Active Melatonin 10 MG capsuleIndicati ons:Other insomnia TAKE 1 CAPSULE BY MOUTH EVERYDAY AT BEDTIME 90 capsule 1 12/11/19 25 Active chlorthalidone (Hygroton) 25 MG tabletIndicatio ns:Primary hypertension Take 1 tablet (25 mg) by mouth Once per day. 90 tablet 12/11/19 25 Active carbamide peroxide (Debrox) 6.5 % otic solutionIndicat ions:Bilateral impacted cerumen Administer 5-10 drops into affected ear(s) 2 times daily for 4 days. 30 mL 12/11/19 25 025 Active nystatin (Nystop) 566975 UNIT/GM powderIndicatio ns:Toe web intertrigo Apply topically 2 times daily. 60 g 12/11/19 25 026 Active hydrocortisone (Anusol-HC) 2.5 % rectal creamIndication s:Bleeding hemorrhoid Insert into the rectum 2 times daily. 28 g 2 09/14/19 23 025 Discontinued(R eorder (will not trigger notification to Pharmacy)) chlorthalidone (Hygroton) 25 MG tabletIndicatio ns:Primary hypertension Take 1 tablet (25 mg) by mouth Once per day. 30 tablet 11 11/23/19 24 025 Discontinued dicyclomine (Bentyl) 10 MG capsuleIndicati ons:Lower abdominal pain Take 1 capsule (10 mg) by mouth 4 times daily. 120 capsule 11 11/23/19 24 025 omeprazole (PriLOSEC) [address] capsuleIndicati ons:Gastroesoph ageal reflux disease, unspecified whether esophagitis present Take 1 capsule (40 mg) by mouth before breakfast. Do not crush or chew. 90 capsule 1 11/23/19 24 025 Discontinued(T herapy completed) bisacodyl (Dulcolax) 5 MG EC tabletIndicatio ns:Other constipation Take 1 tablet (5 mg) by mouth if needed each day for constipation. Do not crush, chew, or split. 30 tablet 11/23/19 24 025 Melatonin 10 MG capsuleIndicati ons:Other insomnia TAKE 1 CAPSULE BY MOUTH EVERYDAY AT BEDTIME 90 capsule 1 12/15/19 24 025 Discontinued(R eorder (will not trigger notification to Pharmacy)) chlorthalidone (Hygroton) 25 MG tabletIndicatio ns:Primary hypertension TAKE 1 TABLET (25 MG) BY MOUTH ONCE PER DAY. 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 Discussed importance w/ compliance of fup with his PCP. Broad differential, will start with labs, Hyperactive bowel movements. Reports prior hx of needing EGDs in [facility] for persistent GERD despite PPI tx. 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 (Primary Dx); Annual physical exam; Bleeding hemorrhoid; Other insomnia; Primary hypertension; Dietary counseling; Exercise counseling; Bilateral impacted cerumen; Toe web intertrigo; Umbilical hernia without obstruction and without gangrene; Varicocele 12/10/2024 Travel 12/09/2024 Telephone [facility] [address] [place] [address] Kavin Graham MD Chart Prep 12/09/2024 Refill [facility] [address] [place] [address] Kavin Graham MD Primary hypertension 12/03/2024 Travel 11/27/2024 Telephone [facility] [address] [place] [address] Kavin Graham MD Appointment Request 11/27/2024 Telephone [facility] [address] [place] [address] Kavin Graham MD No Show 11/26/2024 Telephone [facility] [address] [place] [address] Kavin Graham MD chart prep 11/21/2024 Patient Outreach [facility] [address] [place] [phone] Kavin Graham MD Care Coordination (CHW outreach for SDOH housing search-referral completed ) 11/20/2024 Patient Outreach [facility] [address] [place] [phone] Kavin Graham MD Pre-visit Planning (SDOH screening positive and Tobacco screening negative) 11/20/2024 Travel 10/08/2024 Population Health Risk Score [facility] Department [address] [phone] Provider, Population Health Generic 09/24/2024 Orders Only [facility] [address] [place] [address] Kavin Graham MD Closed avulsion fracture of medial malleolus with delayed healing, right (Primary Dx) 09/24/2024 Telephone [facility] [address] [place] [address] Kavin Graham MD Referral from Last 3 Months Immunizations Immunization Administration Dates Next Due Hep A, Adult 06/19/2017 Hep A, Unspecified 12/17/2016 Hep B Immune Globulin 06/18/2017,01/16/2017 Hep B, Unspecified 12/17/2016 Hep B, adult 06/18/2017,01/16/2017 Influenza, IIV3, injectable 03/02/2015, 2 Influenza, trivalent, adjuvanted 01/07/2020 MMR 12/17/2016 Td (adult), unspecified 05/03/2011 Tdap 05/16/2020,12/09/2016 Family History Medical History Relation [...] with others, in a hotel, in a residential, living outside on the street, on a [...] Orientation Straight 11/26/2024 3: 45 PM EDT Last Filed Vital Signs Vital Sign [...] Mass Index 32.13 12/10/2024 2:41 PM EDT Plan of Treatment Health Maintenance Due Date Last Done Comments CT Colonography 1979 FIT DNA/Cologuard 1979 FIT 1979 FOBT 1979 Sigmoidoscopy 1979 Family Planning (PISQ) 12/23/1994 HPV Vaccines (1 - Male 3-dos e series) 12/23/1994 Hepatitis C Screening 12/23/1997 Disability Screening 06/17/2025 06/17/2024 Influenza Vaccine (#1) 2025 , 03/02/2015, 02/03/2012 Postponed from 12/02/2024 (Patient Refused) SDOH Screening 11/20/2025 11/20/2024 Alcohol/Substance Use Screening 12/10/2025 12/10/2024 COVID-19 Vaccine (3 - 2024-2 6 season) 2025 02/13/2021, 01/16/2021 Postponed from 12/02/2024 (Patient Refused) Depression Screening 12/10/2025 12/10/2024, 12/10/2024 Tobacco Screening 12/10/2025 12/10/2024 Lipid Panel 11/22/2028 11/23/2023, 05/27/2022 Zoster Vaccines [...] Procedure Name Priority Date/Time Associated Diagnosis Comments HIV 1/2 ANTIGEN/ANTIBODY, FOURTH GENERATION W/RFL Routine 11/23/2023 3:29 PM EDT Hypertension, unspecified type LIPID PANEL, STANDARD Routine 11/23/2023 3:29 PM EDT Hypertension, unspecified type from Last 3 Months or Most Recently Relevant to Health Maintenance Results * HIV-1/2 Antigen and Antibodies, Fourth Generation, with Reflexes (11/23/2023 3:29 PM EDT) Pathologist [facility] HIV AB/AG Nonreactive Nonreactive [facility] Comment:HIV-1 p24 Ag and/or HIV-1/HIV-2 Ab not detected.A test result that is nonreactive does not exclude thepossibility of exposure to or infection with HIV-1 and/orHIV-2. Nonreactive results in this assay for individualswith prior exposure to HIV-1 and/or HIV-2 may be due toantigen and antibody levels that are below the limit ofdetection of this assay.The Overwolf HIV Ag/Ab Combo assay result andsupplemental assay results should be interpreted inconjunction with the patient's clinical presentation,history and other laboratory results. If the results areinconsistent with clinical evidence, additional testing issuggested to confirm the result. Blood Venous blood specimen / Unknown 11/23/2023 3:29 PM EDT 11/23/2023 5:29 PM EDT us Kavin Graham MD LAB BLOOD ORDERABLES Final Result Performing Organization Address [facility] de Phone Number [facility] [address] [place] [phone] * (ABNORMAL) Lipid Panel, Standard (11/23/2023 3:29 PM EDT) Triglycerides 134 <150 mg/dL [facility] Comment:Desirable Triglyceri de: less than 150 mg/dLBorderline High Triglyceride 150-199 mg/dLHigh Triglyceride: 200-499 mg/dLVery High Triglyceride: greater than or equal to 5OO mg/dL Cholesterol 203(H) <200 mg/dL [facility] Comment:Desirable Cholestero l: less than 200 mg/dLBorderline High Cholesterol: 200-239 mg/dLHigh Cholesterol: greater than 239 mg/dL LDL Cholesterol Calculated 129(H) <100 mg/dL [facility] Comment:Desirable LDL: less than 100 mg/dLNear Optimal/Above Optimal LDL: 110- 129 mg/dLBorderline High LDL: 130-159 mg/dLHigh LDL: 160-189 mg/dLVery High LDL: greater than or equal to 190 mg/dL HDL Cholesterol 48 >40 mg/dL [facility] Comment:Desirable HDL: great er than 40 mg/dL Note: This HDL assay may give artificially low results in patients with liver disease. Blood Venous blood specimen / Unknown 11/23/2023 3:29 PM EDT 11/23/2023 5:29 PM EDT us Kavin Graham MD LAB BLOOD ORDERABLES Final Result Performing Organization Address [facility] Co de Phone Number [facility] [address] [place] [address] [phone] from Last 3 Months or Most Recently Relevant to Health Maintenance Insurance [facility] C[facility] Care Teams Fish Conservationist Relationship Specialty Start Date End Date Kavin Graham MD [address] [place], [place] [address] [address] PCP - General Internal Medicine 09/17/20
--- NOTE | 2024-12-16 09:07 | HO.ANESPROP2 ---
Documented by User: Eboni Louis NP 12/16/24 09:08 HPI - Anesthesia Eval Consult details Narrative: 43yo M for Upper Endo with APC s/p EGD and [place] 08/2024 with [facility] PMF[facility] Active Problems Active Problems: All Active Problems Garcia esophagus (Acute) Hemorrhoids that prolapse with straining, but retract spontaneously (Acute) Past Medical History Medical History Insomnia Seasonal allergies GERD (gastroesophageal reflux disease) Constipation Hemorrhoids that prolapse with straining, but retract spontaneously HTN (hypertension) Family History Family History Maternal Uncle Stomach cancer Paternal Grandfather Colon cancer Family history of problems with anesthesia: No Surgical History Surgical History H/O colonoscopy History of esophagogastroduodenoscopy (EGD) Hx of brain surgery History of cholecystectomy History of Problems with Anesthesia: No Social History Social History Household Members Other:: mother Housing: Apartment Are you a primary rn care manager to a significant other at home: No Do you presently have visiting nurse or other home services: No Patient Tobacco Use Status: Former Tobacco user Tobacco use type: Cigarette Use of substances other than those prescribed or required for medical reasons: No Are you DNR?: No Advance Directives: No Advance Directives Information Provided: Yes Meds Allergies Allergy/AdvReac Type Severity Reaction Status Date / Time aspirin (ASPIRIN) Allergy Unknown UNSURE OF Verified 10/09/24 16:29 RX Home Medications ?Medication ?Instructions ?Recorded ?Confirmed ?Last Taken ?Type cetirizine 10 mg tablet 10 mg PO QAM 10/10/22 12/17/24 08/14/24 History chlorthalidone 25 mg tablet 25 mg PO QAM 10/10/22 12/17/24 08/14/24 History dicyclomine 10 mg capsule 10 mg PO QID 10/10/22 12/17/24 Unknown History melatonin 10 mg capsule 10 mg PO BEDTIME PRN Insomnia 04/01/24 12/17/24 Unknown History amlodipine 10 mg tablet 10 mg PO DAILY 07/05/24 12/17/24 08/14/24 History Assessment and Plan Assessment Anesthesia Assessment: Chart Reviewed Final Anesthetic Review Family History of Problems with Anesthesia: No History of Problems with Anesthesia: No Documented by User: Kyler Kat MD 12/17/24 16:03 [facility] Past Medical History Medical History Insomnia Seasonal allergies GERD (gastroesophageal reflux disease) Constipation Hemorrhoids that prolapse with straining, but retract spontaneously HTN (hypertension) Family History Family History Maternal Uncle Stomach cancer Paternal Grandfather Colon cancer Surgical History Surgical History H/O colonoscopy History of esophagogastroduodenoscopy (EGD) Hx of brain surgery History of cholecystectomy Social History Social History Household Members Other:: mother Housing: Apartment Are you a primary rn care manager to a significant other at home: No Do you presently have visiting nurse or other home services: No Patient Tobacco Use Status: Former Tobacco user Tobacco use type: Cigarette Use of substances other than those prescribed or required for medical reasons: No Are you DNR?: No Advance Directives: No Advance Directives Information Provided: Yes Meds Allergies Allergy/AdvReac Type Severity Reaction Status Date / Time aspirin (ASPIRIN) Allergy Unknown UNSURE OF Verified 10/09/24 16:29 RX Home Medications ?Medication ?Instructions ?Recorded ?Confirmed ?Last Taken ?Type cetirizine 10 mg tablet 10 mg PO QAM 10/10/22 12/17/24 08/14/24 History chlorthalidone 25 mg tablet 25 mg PO QAM 10/10/22 12/17/24 08/14/24 History dicyclomine 10 mg capsule 10 mg PO QID 10/10/22 12/17/24 Unknown History melatonin 10 mg capsule 10 mg PO BEDTIME PRN Insomnia 04/01/24 12/17/24 Unknown History amlodipine 10 mg tablet 10 mg PO DAILY 07/05/24 12/17/24 08/14/24 History Exam Airway Mallampati Class: I TM Dist: >3cm Neck ROM: Full Loose/Missing/Broken Teeth: Yes Assessment and Plan Assessment Anesthesia Assessment: Anesthesia Plan Discussed Final Anesthetic Review NPO: Yes ASA Class: II Final Preanesthetic Review: No Changes in Pt Med Stat, Meds/Allgs Chart Reviewed, Consent Obtained/Reviewed and Anes Risks/Benef Reviewed Patient Risk: Low Procedure Risk: Low Anesthetic Plan Anesthetic Plan: MAC: Disposition: Standard PACU
[2024-12-17 09:47] VITALS: BMI 31.9
[2024-12-17 09:54] VITALS: BP 122/80; PULSE 59; RESP 15; TEMP 36.6; O2SAT 96
[2024-12-17] MEDS: Lactated Ringers 1,000 ML 100 ML IVCONT (10:03)
--- NOTE | 2024-12-17 11:01 | MHC.SHP ---
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 Details of Present Illness: intermediate risk for dysplaisa and neoplasia, Relevant Family History (Specify if Yes): No Relevant Social History: None Present Medications: see Short Stay Collaborative assessment Medical History: Significant History (Insomnia Seasonal allergies GERD (gastroesophageal reflux disease) Constipation Hemorrhoids that prolapse with straining, but retract spontaneously HTN (hypertension)) History of Previous Operations: Relevant previous surgery/procedure and date(s) ( History of esophagogastroduodenoscopy (EGD) Hx of brain surgery History of cholecystectomy History of surgery of head) Allergies: Allergies Allergy/AdvReac Type Severity Reaction Status Date / Time aspirin (ASPIRIN) Allergy Unknown UNSURE OF Verified 10/09/24 16:29 RX Review of Systems Sugical H&P ROS: Negative: Constitution, Cardiovascular, Respiratory, Neurological, Psychiatric, Hem-Onc, Allergic/Immunologic, Gastrointestinal, Genitourinary, Musculoskeletal, Integumentary, Endocrine and Eyes/Ears/Nose/Throat Exam Surgical H&P Exam: Normal: HEENT, Normal: Heart, Normal: Lungs, Normal: Extremities, Normal: Abdomen, Normal: Skin and Normal: Neurological Plan Diagnosis/Plan: Unchanged I have reviewed the history and physical and performed a pertinent physical examination on my patient. No changes have occurred unless specified. EGD with hybrid APC for ablation of short segment barretts with intermediate risk profile. Time Spent With Patient Time: Total time managing care of this patient today ____ minutes.
--- NOTE | 2024-12-17 11:57 | W.PM.OPN ---
Operative Note Operative Note Date of Service: 12/17/24 Narrative: Procedure Description: EGD Indication: barretts Anesthesia: MAC FLEXIBLE TRANSORAL UPPER GASTROINTESTINAL ENDOSCOPY UPPER ENDOSCOPY Consent: Indications for the procedure and potential complications of bleeding, perforation, reaction to medications and missed diagnosis were discussed with the patient and informed consent was obtained. Instrument: Olympus GIF H 190 J mid size upper endoscope Monitoring: Vital signs and clinical assessment, continuous EKG monitoring, Pulse oximetry, Carbon Dioxide monitoring and blood pressure monitoring were done throughout the procedure. Procedure: The patient was placed in the left lateral decubitis position and pre-procedure medications were administered and a bite block was placed. The endoscope was inserted into the mouth and advanced under direct vision to the third part of duodenum. A careful inspection was made as the upper endoscope was withdrawn including a retroflexed examination of the proximal stomach; Findings and interventions are described below. Findings: Larynx:normal Esophagus: GE junction at 39 cm, diaphragm hiatus at 41 cm, consistent with 2 cm sliding hiatal hernia, salmon pink tissue consistent with short segment muñoz mucosa noted, These area were lifted with erbe jet and then ablated using 60 W APC with good effect. Few residual areas were treated with 40 W APC Stomach: Normal mucosa. Grade 2 flap valve on retroflexed examination of the cardia. Duodenum: Normal bulb and descending duodenum, Intervention: Hybrid APC and ablation of barretts appearing mucosa Impression/Findings: barretts esophagus s/p ablation PLAN: magic mouthwash GERD precautions cont with PPI repeat EGD in about 6 months
[2024-12-17 12:05] VITALS: BP 132/80; PULSE 70; RESP 20; TEMP 36.6; O2SAT 96
[2024-12-17 12:20] VITALS: BP 120/67; PULSE 59; RESP 16; TEMP 36.4; O2SAT 97
[2024-12-17] MEDS: Mag&Al/Sim/Diphenhyd/Lidocaine 10 ML ORAL.SUSP PO (12:31)
== END 2024-12-17 12:48 | disposition home or self-care (01) ==
PROVIDERS: PCP Internal Medicine; Visit Provider Internal Medicine Gastroenterology
PROC: (CPT 43270; principal; 2024-12-17 10:30)
DX: K22.70 Barrett's esophagus without dysplasia (principal); K21.9 Gastro-esophageal reflux disease without esophagitis; K44.9 Diaphragmatic hernia without obstruction or gangrene
CPT/HCPCS: 43270; C1889; J2704

== ENCOUNTER → 2024-12-17 08:07 | Outpatient (BNV) | payer MEDICAID, SELFPAY | PROVIDERS: PCP Internal Medicine; Visit Provider Internal Medicine Gastroenterology | DX: K22.70 Barrett's esophagus without dysplasia (principal) | CPT/HCPCS: 43270 ==

== ENCOUNTER → 2025-01-16 10:26 | Outpatient (BNVA) | payer MEDICAID, SELFPAY | PROVIDERS: PCP Internal Medicine; Visit Provider Surgery | DX: K42.9 Umbilical hernia without obstruction or gangrene (principal) | CPT/HCPCS: 99212 ==

== ENCOUNTER 2025-01-16 14:32 | Outpatient (AMB) | payer MEDICAID, SELFPAY ==
[2025-01-16 14:44] VITALS: BMI 32.9
--- NOTE | 2025-01-16 14:44 | MHC.OFFVIS ---
Vital Signs 01/16/25 14:44 Height 6 ft 6 in Weight 285 lb 0.006 oz BMI 32.9 Intake Visit Reasons: Umbilical hernia Intake Note: This patient presents for an assessment for an umbilical hernia. Pt c/o; reports pain/discomfort, no postprandial nausea or vomiting. Aircraft Maintenance Technician Required: No Accompanied by: Self / Same As Patient Allergies aspirin (ASPIRIN) Allergy (Unknown, Verified 01/16/25 14:46) UNSURE OF RX Medication List - Last Reconciled 01/16/25 by Kwan Brock MD amlodipine 10 mg PO DAILY cetirizine 10 mg PO QAM chlorthalidone 25 mg PO QAM dicyclomine 10 mg PO QID famotidine 20 mg PO BID hydrocortisone 2.5% (Proctosol HC) 1 appl OR BID-QID PRN Magic Mouthwash Diphen/Lido/Antacid 1:1:1 10 mL PO QID melatonin 10 mg PO BEDTIME PRN pantoprazole 40 mg PO QAM HPI HPI Umbilical hernia: Details: [age] year old male referred for an umbilical hernia. He says that he has had this pain and lump on his umbilicus for about 2 years now. He says that this seems to be worsening He was told that he had an umbilical hernia. He feels that there is another hernia above the umbilicus as well He says he is healthy otherwise. He denies any significant GI complaints. He does admit to having been diagnosed to have reflux. [facility], [facility] Medical History (Updated 01/16/25 @ 14:58 by Kwan Brock MD) Umbilical hernia Insomnia Seasonal allergies GERD (gastroesophageal reflux disease) Constipation Hemorrhoids that prolapse with straining, but retract spontaneously HTN (hypertension) Surgical History H/O colonoscopy History of esophagogastroduodenoscopy (EGD) Hx of brain surgery History of cholecystectomy Family History Maternal Uncle Stomach cancer Paternal Grandfather Colon cancer Social History Household Members Other:: mother Housing: Apartment Are you a primary animal daycare provider to a significant other at home: No Do you presently have visiting nurse or other home services: No Patient Tobacco Use Status: Former Tobacco user Tobacco use type: Cigarette Review of Systems Const Denies chills and Denies fever(s) Card Denies chest pain, Denies dyspnea and Denies dyspnea on exertion Resp Denies cough, Denies dyspnea and Denies dyspnea on exertion GI Denies hematochezia and Denies change in bowel habits Denies hematuria and Denies difficulty urinating Musc Denies back pain and Denies limited range of motion Neuro Denies focal weakness and Denies convulsions Psych Denies depression and Denies mood swings Physical Exam Vital Signs: BMI result Body Mass Index 32.9 Const General: comfortable and no acute distress Orientation/consciousness: patient oriented x3 Neck Neck: Yes no lymphadenopathy Resp Auscultation: clear to auscultation bilaterally Cardio Rhythm: regular rhythm GI Other: Umbilical hernia, reducible, about 1.5 cm; there also seems to be another hernia above the umbilicus mobile about 1.5 cm as well, also reducible Palpation (GI): Soft to palpation, nontender and no guarding Neuro General: patient oriented x3 Assessment & Plan Assessment & Plan (1) Umbilical hernia: Code(s): K42.9 - Umbilical hernia without obstruction or gangrene Category: Medical Plan: He has a reducible umbilical hernia. However, he feels that there is also another hernia above his umbilicus. Both of these appeared to be reducible I will order for a CAT scan to define these hernias. I did explain to him the technique of repair of the hernias with possible mesh. I reviewed the risks including but not limited to bleeding, infections, bowel injury, recurrence, as well as the benefits and alternatives. I explained to him what to expect postoperatively I will call him about the CAT scan findings and schedule him for a hernia repair at some point. Orders: Orders CT abdomen pelvis wo IV con 01/16/25 K42.9 - Umbilical hernia without obstruction or gangrene Coding Level of Care Code New Pt Level 3 (04150) Diagnoses Umbilical hernia K42.9
== END 2025-01-16 15:03 | disposition home or self-care (01) ==
LOC: HO.HGS 14:32
PROVIDERS: PCP Internal Medicine; Visit Provider Surgery
DX: K42.9 Umbilical hernia without obstruction or gangrene (principal)
CPT/HCPCS: 99213

== ENCOUNTER 2025-02-04 11:39 | Outpatient (REF) | payer MEDICAID, SELFPAY ==
[2025-02-04 14:13] LABS: MANUAL DIFF FLAG NO
[2025-02-04 14:19] LABS: Appearance Urine Clear; Glucose Urine UA Negative (Negative); PH 7.5 (5.0-9.0); Specific Gravity - Urine 1.015 (1.005-1.025)
[2025-02-04 14:21] LABS: Hematocrit 40.6 % (42.0-52.0); Hemoglobin 13.7 g/dl (14.0-18.0); Imm Gran Abs Auto 0.02 X10*3/uL (0.00-0.03); Imm Gran Pct Auto 0.3 % (0.0-0.4); Lymphocytes Absolute Auto 1.8 X10*3/uL (1.2-4.9); Mean Corpuscular HGB Conc 33.7 g/dl (31.0-36.0); Mean Corpuscular Hemoglobin 27.6 pg (27.0-33.0); Mean Corpuscular Volume 81.9 fL (80.0-98.0); NRBC Abs Auto 0.000 X10*3/uL (0.0-0.012); NRBC Pct Auto 0.0 /100WBC (0.0-0.2); Platelet Count 264 X10*3/uL (160-400); Red Blood Count 4.96 X10*6/uL (4.60-5.80); White Blood Count 5.8 X10*3/uL (4.8-10.8)
[2025-02-04 14:47] LABS: Alanine Aminotransferase 37 U/L (0-40); Albumin Level 4.9 g/dL (3.5-5.0); Alkaline Phosphatase 63 U/L (39-117); Anion Gap 13 (12-20); Aspartate Amino Transferase 33 U/L (5-37); Blood Urea Nitrogen 13 mg/dL (9-16); Calcium 9.3 mg/dL (8.4-10.2); Carbon Dioxide 26 mmol/L (22-29); Chloride 105 mmol/L (96-108); Cholesterol 239 mg/dL (<200); Estimated Glomerular Filt Rate > 60; HDL Cholesterol 42 mg/dL (>40); Potassium 3.5 mmol/L (3.3-5.1); Sodium 140 mmol/L (135-145); Total Protein 7.9 g/dL (6.5-8.0); Triglycerides 187 mg/dL (<150)
[2025-02-05 10:28] LABS: HIV Num 1 0.05 S/CO (0.00-0.99); ~HepC Num1 0.08 S/CO (0.00-0.79); ~Hepatitis C Antibody Nonreactive (Nonreactive)
== END 2025-02-04 11:40 | disposition home or self-care (01) ==
LOC: HO.CHCLDS 11:39
PROVIDERS: Visit Provider Internal Medicine
DX: Z00.00 Encounter for general adult medical examination without abnormal findings (principal); Z11.4 Encounter for screening for human immunodeficiency virus [HIV]; Z11.59 Encounter for screening for other viral diseases; Z11.3 Encounter for screening for infections with a predominantly sexual mode of transmission
CPT/HCPCS: 36415; 80053; 80061; 81003; 84443; 85025; 86592; 86803; 87389

== ENCOUNTER 2025-03-08 07:22 | Outpatient (REF) | payer MEDICAID, SELFPAY ==
--- NOTE | ~2025-03-08 | CT_ITS ---
CLINICAL HISTORY: K42.9 - Umbilical hernia without obstruction or gangrene CT abdomen and pelvis without contrast Comparison: CT - ABD PELVIS WO CONT [id number] - 07/26/13 02:02 EDT Findings: The lung bases are clear. Abdominal solid organs without acute abnormality or focal lesions. Adrenal glands are nonenlarged. Gallbladder is surgically absent. The stomach and bowel loops are nondistended. There are no focal colonic lesions or pneumatosis. There is no mesenteric inflammation. The appendix is normal. No free fluid, collections or free air. The aorta normal in caliber. No abdominopelvic lymphadenopathy. The bladder is normal. There no acute soft tissue or skeletal abnormality in the abdomen or pelvis. There is a small fat containing left paraumbilical ventral hernia. IMPRESSION: No acute findings. Small fat containing paraumbilical abdominal hernia. This document has been electronically signed by: Arthur Syed MD on 03/11/2025 07:19:10
--- OUTSIDE RECORDS SUMMARY | 2025-03-08 07:24 | XMS_ITS | Encounter Summary ---
Author Organization [employer] Address [address] [place] [address] [place] [address] Care Team Providers Care Concrete Vibrator Operator Name Role Phone Kavin Graham MD Primary Care Provider [phone] Reason for Referral * Consultation (Urgent) - Closed Specialty Diagnoses / Procedures Referred By Contac t Referred To Contact Orthopaedic Surgery Diagnoses Closed avulsion fracture of medial malleolus with delayed healing, right Kavin Graham MD [address] [place] [address] Phone: tel: fax: Referral ID Status Reason Start Date Expiration Date V isits Requested Visits Authorized [id number] Closed Specialty Services Required 09/24/2024 09/24/2025 1 1 Encounter Details Date Type Department Care Team ([facility] st Contact Info) Description 09/24/2024 Orders Only [facility] [address] [place] [address] Kavin Graham MD [address] [place] [address] Closed avulsion fracture of medial malleolus with [...] as of this encounter Plan of Treatment Upcoming Encounters Date Type Department Care Team ([facility] st Contact Info) Description 04/01/2025 4:00 PM EST Office Visit [facility] [address] [place] [address] Kavin Graham MD [address] [place] [address] Scheduled Referrals Name Type Priority Associated Diagnoses [...] documented as of this encounter Care Teams Concrete Vibrator Operator Relationship Specialty Start Date End Date Kavin Graham MD [address] [place] [phone] PCP - General Internal Medicine 09/17/20 documented as of this encounter
--- OUTSIDE RECORDS SUMMARY | 2025-03-08 07:24 | XMS_ITS | Encounter Summary ---
Author Organization [employer] Address [address] [facility] 7t [place] [address] Care Team Providers Care Slitter Creaser Slotter Operator Name Role Phone Kavin Graham MD Primary Care Provider [phone] Encounter Details Date Type Department Care Team ([facility] st Contact Info) Description 04/25/2023 Telephone [facility] [address] [place] [address] Kavin Graham MD [address] [place], [place] [phone] Social History Tobacco Use Types Packs/Day Years [...] Care Team (Late st Contact Info) Description 04/01/2025 4:00 PM EST Office Visit [facility] [address] [place] [address] Kavin Graham MD [address] [place] [address] documented as of this encounter Visit Diagnoses Not on filedocumented in this encounter Care Teams Slitter Creaser Slotter Operator Relationship Specialty Start Date End Date Kavin Graham MD [address] [place] [address] PCP - General Internal Medicine 09/17/20 documented as of this encounter
--- OUTSIDE RECORDS SUMMARY | 2025-03-08 07:24 | XMS_ITS | Clinical Summary ---
Author Organization [employer] Address [address] [place] [address] 7[address] [place] [address] Care Team Providers Care Hand Sewer Shoes Name Role Phone Kavin Graham MD Primary Care Provider [phone] Allergies Active Allergy Reactions Criticality Noted Date [...] A DAY 100 g 12/20/19 24 Active hydrocortisone (Anusol-HC) 2.5 % rectal creamIndication [...] per day. 90 tablet 12/11/19 25 Active nystatin (Nystop) 028176 UNIT/GM powderIndicatio ns:Toe web intertrigo Apply topically 2 times daily. 60 g 12/11/19 25 026 Active doxycycline (Vibra-Tabs) 100 MG tabletIndicatio ns:Possible exposure to STI Take 2 tabs once within 72 hours of unprotected intercourse. Repeat as needed. Take with a full glass of water and do not lie down for at least 30 minutes after. 40 tablet 02/14/20 25 Active amLODIPine (Norvasc) 10 MG tabletIndicatio ns:Hypertension , unspecified type TAKE 1 TABLET BY MOUTH EVERY DAY IN THE MORNING 90 tablet 1 03/06/20 25 Active amLODIPine (Norvasc) 10 MG tabletIndicatio ns:Hypertension , unspecified type TAKE 1 TABLET BY MOUTH EVERY DAY IN THE MORNING 90 tablet 1 09/03/19 25 025 Discontinued clotrimazole-be tamethasone (Lotrisone) cream Apply topically 2 times daily for 28 days. 30 g 1 02/07/20 25 025 Active Problems Problem Noted Date Diagnosed Date Candidiasis of perineum 02/06/2025 Assessment & Plan (02/06/2025 11:27 AM EST): - Groin rash consistent with intertrigo, likely exacerbated by sweating, tight clothing, and shaving. - Prescribed Lotrisone cream to be applied twice daily to affected area for one week. He can use it prn if irritation recurs, especially during periods of increased sweating. - Advised use of Desitin ointment for localized shaved areas. - Recommended wearing loose, cotton boxers and avoiding tight or lycra underwear. - Recent FBS was nl, will check A1c for IFG. Screen for STD (sexually transmitted disease) Assessment & Plan (02/06/2025 11:29 AM EST): - Has risk of STI due to recent unprotected sexual activity. We discussed re condom use at all times. - We discussed re confidential STI testing PRN at [facility]; Ordered STI testing to [facility] labs today. 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 Discussed importance w/ compliance of fup with his PCP. Broad differential, will start with labs, Hyperactive bowel movements. Reports prior hx of needing EGDs in [facility] for persistent GERD despite PPI tx. Will [...] Encounters Date Type Department Care Team Description 03/05/2025 Refill [facility] [address] [place] [address] Kavin Graham MD Hypertension, unspecified type 02/19/2025 Telephone [facility] [address] [place] [address] Kavin Graham MD Appointment Request; Appointment 02/17/2025 Telephone [facility] [address] [place] [address] Ghada Villalpando, AVINASH 02/14/2025 10:00 AM EST Immunization [facility] [address] [place] [address] Encounter for immunization 02/14/2025 Travel 02/13/2025 Orders Only [facility] [address] [place] [address] Serena Simmons ANP Possible exposure to STI (Primary Dx) 02/10/2025 Orders Only [facility] [address] [place] [address] Aneta Michel, AVINASH Screen for STD (sexually transmitted disease) (Primary Dx) 02/06/2025 10:15 AM EST Office Visit [address] [address] Alessandra Velasquez MD Screen for STD (sexually transmitted disease) (Primary Dx); Candidiasis of perineum 02/06/2025 Telephone [facility] [address] [place] [address] Kavin Graham MD Patient Education 02/06/2025 Travel 02/06/[address] [address] Kavin Graham MD Nurse Triage 02/05/2025 Results Follow-Up [facility] [address] [place] [address] Kavin Graham MD CBC auto differential, Comprehensive Metabolic Panel, Lipid Panel, Standard, Additional followed-up results: 5 02/05/2025 Orders Only [facility] [address] [place] [address] Kavin Graham MD Hypercholesterolemia (Primary Dx) 12/27/2024 Patient Outreach [address] [address] Romian Rasmussen Recovery Supports 12/10/2024 2:45 PM EDT Office Visit [facility] [address] [place] [address] Kavin Graham MD 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 (Primary Dx); Annual physical exam; Bleeding hemorrhoid; Other insomnia; Primary hypertension; Dietary counseling; Exercise counseling; Bilateral impacted cerumen; Toe web intertrigo; Umbilical hernia without obstruction and without gangrene; Varicocele 12/10/2024 Travel 12/09/2024 Telephone [facility] [address] [place] [address] Kavin Graham MD Chart Prep 12/09/2024 Refill [facility] [address] [place] [address] Kavin Graham MD Primary hypertension from Last 3 Months Immunizations Immunization Administration Dates Next Due Hep A, Adult 06/19/2017 Hep A, Unspecified 12/17/2016 Hep B Immune Globulin 06/18/2017,01/16/2017 Hep B, Unspecified 12/17/2016 Hep B, adult 06/18/2017,01/16/2017 Influenza, IIV3, injectable 03/02/2015, 2 Influenza, seasonal, injectable, preservative fr ee 02/14/2025 Influenza, trivalent, adjuvanted 01/07/2020 MMR 12/17/2016 Td [...] with others, in a hotel, in a [facility], living outside on the street, on a [...] Sign Reading Time Taken Comments Blood Pressure 142/90 02/06/2025 10:18 AM EST Pulse 96 02/06/2025 10:18 AM EST Temperature 36.2 C (97.1 F) 02/06/2025 10:18 AM EST Respiratory Rate 14 02/06/2025 10:18 AM EST Oxygen Saturation 96% 02/06/2025 10:18 AM EST Inhaled Oxygen Concentration - - Weight 128 kg (281 lb 9.6 oz) 02/06/2025 10:18 A M EST Height 198.1 cm (6' 6 ) 02/06/2025 10:18 AM EST Body Mass Index 32.54 02/06/2025 10:18 AM EST Plan of Treatment Upcoming Encounters Date Type Department Care Team (Late st Contact Info) Description 04/01/2025 4:00 PM EST Office Visit [facility] [address] [place] [address] Kavin Graham MD [address] [place] [address] Health Maintenance Due Date Last Done Comments CT Colonography 1979 FIT DNA/Cologuard 1979 FIT 1979 FOBT 1979 Sigmoidoscopy 1979 Family Planning (PISQ) 12/23/1994 HPV Vaccines (1 - Male 3-dose series) 12/23/1994 Disability Screening 06/17/2025 06/17/2024 SDOH Screening 11/20/2025 11/20/2024 Alcohol/Substance Use Screening 12/10/2025 12/10/2024 COVID-19 Vaccine ( season) 2025 02/13/2021, 01/16/2021 Postponed from 12/02/2024 (Patient Refused) Depression Screening 12/10/2025 12/10/2024, 12/11/19 25 Tobacco Screening 02/06/2026 02/06/2025 Zoster Vaccines (1 of 2) 12/23/2029 Lipid Panel 02/04/2030 02/04/2025, 11/02, 05/27/2022 DTaP/Tdap/Td Vaccines (3 - Td or Tdap) 05/16/2030 05/16/2020, 12/09/2016, 05/03/2011 Colonoscopy 08/14/2034 Colorectal Cancer Screening 08/14/2034 RSV Patients and Patients Aged 60 years or older (1 - 1-dose 75+ series) 12/23/2054 Hepatitis B Vaccines Completed 06/18/2017, 01/16/2017, 12/17/2016 Hepatitis A Vaccines Aged Out 06/19/2017, 12/18/19 17 No longer eligible based on patient's age to complete this topic Hepatitis C Screening Completed 02/06/2025, 025 Influenza Vaccine Completed 02/14/2025, , 03/02/2015, Additional history exists HIV Screening Completed 02/17/2025, 09/2024, 02/04/2025, Additional history exists HIB Vaccines Aged Out No longer eligi [...] 49) Years Aged Out No longer eligible based on patient's age to complete this topic RSV under 20 months Aged Out No longe r eligible based on patient's age to complete this topic Rotavirus Vaccines Aged Out No longer eligible based on patient's age to complete this topic Procedures Procedure Name Priority Date/Time Associated Diagnosis Comments SYPHILIS SCREEN Routine 02/17/2025 Screen for STD (sexually transmitted disease) HEPATITIS PANEL, GENERAL Routine 02/17/2025 Screen for STD (sexually transmitted disease) HIV 1/2 ANTIGEN/ANTIBODY, FOURTH GENERATION W/RFL Routine 02/17/2025 Screen for STD (sexually transmitted disease) HIV ANTIBODY/ANTIGEN ([place] DPH) Routine 02/06/2025 HEPATITIS C ANTIBODY ([place] DPH) Routine 02/06/2025 SYPHILIS ABS ([place] DPH) Routine 02/06/2025 CHLAMYDIA/GONORRHEA - URINE ([place] DPH) Routine 02/06/2025 CHLAMYDIA/GONORRHEA THROAT SWAB ([place] DPH) Routine 02/06/2025 URINALYSIS WITH REFLEX MICROSCOPIC Routine 02/04/2025 11:48 [...] exam from Last 3 Months Results * Syphilis Screen (02/17/2025) Blood us Alessandra Velasquez MD LAB BLOOD ORDERABLES Fin al Result [facility] [address] [place] [phone] * Hepatitis Panel, General (02/17/2025) Blood Alessandra Velasquez MD LAB BLOOD ORDERABLES Fin al Result Performing Organization Address [facility] Co de Phone Number [facility] [address] [place] [phone] * HIV-1/2 Antigen and Antibodies, Fourth Generation, with Reflexes (02/17/2025) Only the most recent of2 resultswithin the time period is included. Blood Venous blood specimen / Unknown Alessandra Velasquez MD LAB BLOOD ORDERABLES Fin al Result Performing Organization Address [facility] de Phone Number [facility] [address] [place] [phone] * Chlamydia/Gonorrhea Throat Swab ([place] DPH) (02/06/2025) Pathologist [facility] Chlamydia Throat Swab Negative Gonorrhea Throat Swab Negative Swab 02/06/2025 Result [facility] Provider LAB MICROBIOLOGY - GENERA L ORDERABLES Final Result * Chlamydia/Gonorrhea, Urine ([place] DPH) (02/06/2025) Chlamydia, Urine Negative Negative, Indeterminate, None Detected, Invalid, Specimen unsatisfactory for evaluation, Weakly Positive, 2+ Gonorrhea, Urine Negative Negative, Indeterminate, None Detected, Invalid, Specimen unsatisfactory for evaluation, Weakly Positive, 2+ Urine 02/06/2025 Result [facility] Provider LAB URINE ORDERABLES Sary l Result * Syphilis Antibodies (DPH) (02/06/2025) Syphilis Abs Nonreactive Borderline, Nonreactive, Weakly Reactive, Inconclusive, Specimen unsatisfactory for evaluation Blood Venous blood specimen / Unknown 02/06/2025 Result [facility] Provider LAB BLOOD ORDERABLES Sary l Result * Hepatitis C Antibody ([place] DPH) (02/06/2025) Hepatitis C Ab Nonreactive Blood 02/06/2025 Result [facility] Provider LAB BLOOD ORDERABLES Sary l Result * HIV Ab/Ag ([place] DPH) (02/06/2025) Pathologist [facility] HIV Ag/Ab Nonreactive Blood 02/06/2025 Result [facility] Provider LAB BLOOD ORDERABLES Sary l Result * Urinalysis w/reflex microscopic (02/04/2025 11:48 AM EST) Pathologist [facility] Color Urine Yellow [facility] Appearance Urine Clear [facility] PH 7.5 5.0 - 9.0 [facility] Glucose Urine UA Negative Negative mg/dL [facility] Urine Blood Negative Negative [facility] Specific [place] - Urine 1.015 1.005 - 1.025 [facility] Urine Protein Negative Neg-Trace mg/dL [facility] Urine Ketones Negative Negative mg/dL [facility] Nitrite Urine Negative Negative [facility] Leukocyte Esterase Urine Negative Negative [facility] Urine (Urine, Random) 02/04/2025 11:48 AM EST 02/04/2025 2:08 PM EST Narrative [facility] - 02/04/2025 2:20 PM EST [id number], Clean Catch Result [facility] Kavin Graham MD LAB URINE ORDERABLES Final Result [facility] [address] [place] [phone] * TSH with Reflex to Free T4 (02/04/2025 11:41 AM EST) Pathologist [facility] TSH reflex Free T4 2.06 0.32 - 4.0 uIU/mL [facility] Blood Venous blood specimen / Unknown 02/04/2025 11:41 AM EST 02/04/2025 2:12 PM EST us Kavin Graham MD LAB BLOOD ORDERABLES Final Result [facility] [address] [place] [phone] * (ABNORMAL) CBC auto differential (02/04/2025 11:41 AM EST) Pathologist [facility] White Blood Count 5.8 4.8 - 10.8 X10*3/uL [facility] Red Blood Count 4.96 4.60 - 5.80 X10*6/uL [facility] Hemoglobin 13.7(L) 14.0 - 18.0 g/dl [facility] Hematocrit 40.6(L) 42.0 - 52.0 % [facility] Mean Corpuscular Volume 81.9 80.0 - 98.0 fL [facility] Mean Corpuscular Hemoglobin 27.6 27.0 - 33.0 pg [facility] Mean Corpuscular HGB Conc 33.7 31.0 - 36.0 g/dl [facility] Red Cell Distribution Width 14.6 11.0 - 16.0 % [facility] Platelet Count 264 160 - 400 X10*3/uL [facility] Mean Platelet Volume 10.1 9.4 - 12.4 fL [facility] Neutrophils Percent Auto 53.8 45 - 73 % [facility] Imm Gran Pct Auto 0.3 0.0 - 0.4 % [facility] Lymphocytes Percent Auto 30.5 20 - 40 % [facility] Monocytes Percent Auto 10.6 2 - 11 % [facility] Eosinophils Percent Auto 3.8 0 - 4 % [facility] Basophils Percent Auto 1.0 0 - 2 % [facility] NRBC Pct Auto 0.0 0.0 - 0.2 /100WBC [facility] Neutrophils Absolute Auto 3.1 2.0 - 8.3 x10*3/uL [facility] Imm Gran Abs Auto 0.02 0.00 - 0.03 X10*3/uL [facility] Lymphocytes Absolute Auto 1.8 1.2 - 4.9 X10*3/uL [facility] Monocytes Absolute Auto 0.6 0.1 - 1.2 X10*3/uL [facility] Eosinophils Absolute Auto 0.2 0.0 - 0.4 X10*3/uL [facility] Basophils Absolute Auto 0.1 0.0 - 0.2 X10*3/uL [facility] NRBC Abs Auto 0.000 0.0 - 0.012 X10*3/uL [facility] Blood Venous blood specimen / Unknown 02/04/2025 11:41 AM EST 02/04/2025 2:09 PM EST us Kavin Graham MD LAB BLOOD ORDERABLES Final Result Performing Organization Address City/[facility]/ZIP Co de Phone Number [facility] [address] [place] [address] [phone] * Hepatitis C Antibody with Reflex to HCV, RNA, Quantitative, Real-Time PCR (02/04/2025 11:41 AM EST) Hepatitis C Antibody Nonreactive Nonreactive [facility] Comment:Antibodies to HCV no t detected; does not exclude early acuteHCV infection. Blood Venous blood specimen / Unknown 02/04/2025 11:41 AM EST 02/04/2025 2:09 PM EST Kavin Graham MD LAB BLOOD ORDERABLES Final Result [facility] [address] [place] [phone] * RPR (Monitor) with Reflex to??Titer (02/04/2025 11:41 AM EST) RPR (Monitor) w/Refl Titer NON-REACTI VE NON-REACT MEHRAN [facility] Comment:THIS TEST WAS PERFOR MED AT:[facility] [place] [phone] FRANCISCO MD Rapid Plasma Reagin Ab Titer TNP [facility] Blood Venous blood specimen / Unknown 02/04/2025 11:41 AM EST 02/04/2025 2:12 PM EST us Kavin Graham MD LAB BLOOD ORDERABLES Final Result [facility] [address] [place] [phone] * (ABNORMAL) Lipid Panel, Standard (02/04/2025 11:41 AM EST) Triglycerides 187(H) <150 mg/dL [facility] Comment:Desirable Triglyceri de: less than 150 mg/dLBorderline High Triglyceride 150-199 mg/dLHigh Triglyceride: 200-499 mg/dLVery High Triglyceride: greater than or equal to 5OO mg/dL Cholesterol 239(H) <200 mg/dL [facility] Comment:Desirable Cholestero l: less than 200 mg/dLBorderline High Cholesterol: 200-239 mg/dLHigh Cholesterol: greater than 239 mg/dL LDL Cholesterol Calculated 160(H) <100 mg/dL [facility] Comment:Desirable LDL: less than 100 mg/dLNear Optimal/Above Optimal LDL: 110- 129 mg/dLBorderline High LDL: 130-159 mg/dLHigh LDL: 160-189 mg/dLVery High LDL: greater than or equal to 190 mg/dL HDL Cholesterol 42 >40 mg/dL [facility] Comment:Desirable HDL: great er than 40 mg/dL Note: This HDL assay may give artificially low results in patients with liver disease. Blood Venous blood specimen / Unknown 02/04/2025 11:41 AM EST 02/04/2025 2:12 PM EST Kavin Graham MD LAB BLOOD ORDERABLES Final Result [facility] [address] [place] [phone] * Comprehensive Metabolic Panel (02/04/2025 11:41 AM EST) Sodium 140 135 - 145 mmol/L [facility] Potassium 3.5 3.3 - 5.1 mmol/L [facility] Chloride 105 96 - 108 mmol/L [facility] Carbon Dioxide 26 22 - 29 mmol/L [facility] Anion Gap 13 12 - 20 [facility] Urea Nitrogen (BUN) 13 9 - 16 mg/dL [facility] Creatinine, Serum 1.00 0.5 - 1.4 mg/dL [facility] Estimated Glomerular Filt Rate >60 [facility] Comment:Chronic Kidney Disea se: Estimated GFR < 60 mL/min/1.93d5Tvmpcy Kidney Disease: Estimated GFR < 15 mL/min/1.73m2 Glucose 98 60 - 115 mg/dL [facility] Calcium 9.3 8.4 - 10.2 mg/dL [facility] Bilirubin, Total 0.6 0.0 - 1.0 mg/dL [facility] Aspartate Amino Transferase 33 5 - 37 U/L [facility] Alanine Aminotransferase 37 0 - 40 U/L [facility] Total Protein 7.9 6.5 - 8.0 g/dL [facility] Albumin Level 4.9 3.5 - 5.0 g/dL [facility] Alkaline Phosphatase 63 39 - 117 U/L [facility] Blood Venous blood specimen / Unknown 02/04/2025 11:41 AM EST 02/04/2025 2:12 PM EST Kavin Graham MD LAB BLOOD ORDERABLES Final Result [facility] [address] [place] [phone] from Last 3 Months Insurance [facility] C3 Care Teams Hand Sewer Shoes Relationship Specialty Start Date End Date Kavin Graham MD [address] [place] [address] [place] [address] PCP - General Internal Medicine 09/17/20
--- OUTSIDE RECORDS SUMMARY | 2025-03-08 07:24 | XMS_ITS | Encounter Summary ---
Author Organization [employer] Address [address] [facility] 7 [place] [address] Care Team Providers Care Delicatessen Department Manager Name Role Phone Kavin Graham MD Primary Care Provider [phone] Encounter Details Date Type Department Care Team (Latest Contact Info) Description 02/05/2025 Results Follow-Up [facility] [address] [place] [address] Kavin Graham MD [address] [place] [address] CBC auto differential, Comprehensive Metabolic Panel, Lipid [...] with others, in a hotel, in a care home, living outside on the street, on [...] High cholesterol. The 10-year ASCVD risk score ([place] DK, et al., 2019) is: 4.4% Values [...] documented in this encounter Plan of Treatment Upcoming Encounters Date Type Department Care Team ([facility] st Contact Info) Description 04/01/2025 4:00 PM EST Office Visit [facility] [address] [facility] [place] [address] Kavin Graham MD [address] [place] [address] documented as of this encounter Visit Diagnoses Not on filedocumented in this encounter Additional Health Concerns Assessment Noted Time PHQ-9 Depression Total Score: 0 12/11/19 25 2:43 PM EDT documented as of this encounter Care Teams Delicatessen Department Manager Relationship Specialty Start Date End Date Kavin Graham MD [address] [place] [address] PCP - General Internal Medicine 09/17/20 documented as of this encounter
--- OUTSIDE RECORDS SUMMARY | 2025-03-08 07:24 | XMS_ITS | Encounter Summary ---
Author Organization [employer] Address [address] [facility] 7 [place] [address] Care Team Providers Care Foreign Language Interpreter Name Role Phone Kavin Graham MD Primary Care Provider [phone] Reason for Visit * Reason Comments Med Refill Encounter Details Date Type Department Care Team ([facility] st Contact Info) Description 03/05/2025 Refill [facility] [address] [place], [place] [phone] Kavin Graham MD [address] [place] [address] Hypertension, unspecified type Social History Tobacco Use Types Packs/Day Years [...] with others, in a hotel, in a detention, living outside on the street, on a [...] Description 04/01/2025 4:00 PM EST Office Visit [facility] [address] [place] [address] Kavin Graham MD [address] [place] [address] documented as of this encounter Visit Diagnoses Diagnosis Hypertension, unspecified type documented in this encounter Additional Health Concerns Assessment Noted Time PHQ-9 Depression Total Score: 0 12/11/19 25 2:43 PM EDT documented as of this encounter Care Teams Foreign Language Interpreter Relationship Specialty Start Date End Date Kavin Graham MD [address] [place] [address] PCP - General Internal Medicine 09/17/20 documented as of this encounter
--- OUTSIDE RECORDS SUMMARY | 2025-03-08 07:24 | XMS_ITS | Encounter Summary ---
Author Organization [employer] Address [address] [facility] 7t [place] [address] Care Team Providers Care Enamel Shader Name Role Phone Kavin Graham MD Primary Care Provider [phone] Encounter Details Date Type Department Care Team ([facility] st Contact Info) Description 02/10/2025 Orders Only [facility] [address] [place] [address] Aneta Michel, RN [address] [place] [address] Screen for STD (sexually transmitted disease) (Primary Dx) Social History Tobacco Use Types [...] with others, in a hotel, in a retirement, living outside on the street, on a [...] Upcoming Encounters Date Type Department Care Team ([facility] st Contact Info) Description 04/01/2025 4:00 PM EST Office Visit [facility] [address] [place] [address] Kavin Graham MD [address] [place] [address] documented as of this encounter Visit Diagnoses Diagnosis Screen for STD (sexually transmitted disease)- Primary Screening examination for venereal disease documented in this encounter Additional Health Concerns Assessment Noted Time PHQ-9 Depression Total Score: 0 12/11/19 25 2:43 PM EDT documented as of this encounter Care Teams Enamel Shader Relationship Specialty Start Date End Date Kavin Graham MD [address] [place] [address] PCP - General Internal Medicine 09/17/20 documented as of this encounter
--- OUTSIDE RECORDS SUMMARY | 2025-03-08 07:24 | XMS_ITS | Encounter Summary ---
Author Organization [employer] Address [address] [facility] 7t [place] [address] Care Team Providers Care Head Grease Maker Name Role Phone Kavin Graham MD Primary Care Provider [phone] Encounter Details Date Type Department Care Team (Latest Contact Info) Description 02/05/2025 Orders Only [facility] [address] [place] [address] Kavin Graham MD [address] [place] [address] Hypercholesterolemia (Primary Dx) Social History Tobacco Use [...] Description 04/01/2025 4:00 PM EST Office Visit [facility] [address] [place] [address] Kavin Graham MD [address] [place] [address] Scheduled Orders Name Type Priority Associated Diagnoses Orde r Schedule Lipid Panel, Standard Lab Routine Hypercholesterolemia Expected: 02/05/2025 (Approximate), Expires: 02/05/2026 documented as of this encounter Visit Diagnoses Diagnosis Hypercholesterolemia- Primary Pure hypercholesterolemia documented in this encounter Additional Health Concerns Assessment Noted Time PHQ-9 Depression Total Score: 0 12/11/19 25 2:43 PM EDT documented as of this encounter Care Teams Head Grease Maker Relationship Specialty Start Date End Date Kavin Graham MD [address] [place] [address] PCP - General Internal Medicine 09/17/20 documented as of this encounter
== END 2025-03-08 07:23 | disposition home or self-care (01) ==
LOC: HO.CT 07:22
PROVIDERS: PCP Internal Medicine; Visit Provider Surgery
DX: K42.9 Umbilical hernia without obstruction or gangrene (principal)
CPT/HCPCS: 74176

== ENCOUNTER → 2025-03-08 07:24 | Outpatient (BNV) | payer MEDICAID, SELFPAY | PROVIDERS: PCP Internal Medicine; Visit Provider Radiology Diagnostic Radiology | DX: K42.9 Umbilical hernia without obstruction or gangrene (principal) | CPT/HCPCS: 74176 ==

== ENCOUNTER 2025-03-11 06:44 | Day surgery (SDC) | payer MEDICAID, SELFPAY ==
--- OUTSIDE RECORDS SUMMARY | 2025-02-06 09:03 | XMS_ITS | Encounter Summary ---
Author Organization [employer] Address [address] [facility] [address] [place] [address] Care Team Providers Care Biomedical Engineer Name Role Phone Kavin Graham MD Primary Care Provider [phone] Encounter Details Date Type Department Care Team ([facility] st Contact Info) Description 04/25/[address] [facility] MEDICINE [address] [place] [address] Kavin Graham MD [address] [place], [place] [id number] Social History Tobacco Use Types Packs/Day Years [...] on filedocumented in this encounter Care Teams Biomedical Engineer Relationship Specialty Start Date End Date Kavin Graham MD [address] [place] [id number] PCP - General Internal Medicine 09/17/20 documented as of this encounter
--- OUTSIDE RECORDS SUMMARY | 2025-02-06 09:03 | XMS_ITS | Encounter Summary ---
Author Organization [employer] Address [address] [place] [address] 7 [place] [address] Care Team Providers Care Certified Registered Nurse Anesthetist Name Role Phone Kavin Graham MD Primary Care Provider [phone] Reason for Referral * Consultation (Urgent) - Closed Specialty Diagnoses / Procedures Referred By Contac t Referred To Contact Orthopaedic Surgery Diagnoses Closed avulsion fracture of medial malleolus with delayed healing, right Kavin Graham MD [address] [place] [address] Phone: tel: fax: Referral ID Status Reason Start Date Expiration Date V isits Requested Visits Authorized [id number] Closed Specialty Services Required 09/24/2024 09/24/2025 1 1 Encounter Details Date Type Department Care Team ([facility] st Contact Info) Description 09/24/2024 Orders Only [facility] MED & PEDS [address] [place] [address] Kavin Graham MD [address] [place] [address] Closed avulsion fracture of medial malleolus with [...] documented as of this encounter Care Teams Certified Registered Nurse Anesthetist Relationship Specialty Start Date End Date Kavin Graham MD [address] [place] [address] PCP - General Internal Medicine 09/17/20 documented as of this encounter
--- OUTSIDE RECORDS SUMMARY | 2025-02-06 09:03 | XMS_ITS | Encounter Summary ---
Author Organization [employer] Address [address] [facility] 7 [place] [address] Care Team Providers Care Site Coordinator Name Role Phone Kavin Graham MD Primary Care Provider [phone] Encounter Details Date Type Department Care Team (Latest Contact Info) Description 02/05/2025 Results Follow-Up [facility] MED & PEDS [address] [place] [address] Kavin Graham MD [address] [place] [address] CBC auto differential, Comprehensive Metabolic Panel, Lipid Panel, Standard, Additional followed-up results: 5 Social History Tobacco Use Types Packs/Day Years [...] as of this encounter Miscellaneous Notes * Result Encounter Note - Kavin Graham MD - 02/06/2025 8:59 AM EST Please find out when Mr Phan Birmingham's next recall is. I will review the results of his blood work during his next visit. * Result Encounter Note - Kavin Graham MD - 02/05/2025 9:18 AM EST Please call Mr Phan Birmingham to report the results of his blood work 1- High cholesterol. The 10-year ASCVD risk score (Bhavna DK, et al., 2019) is: 4.4% Values used to calculate the score: Age: 44 years Sex: Male Is Non- : No Diabetic: No Tobacco smoker: No Systolic Blood Pressure: 136 mmHg Is BP treated: Yes HDL Cholesterol: 42 mg/dL Total Cholesterol: 239 mg/dL He has intermediate risk. He can attempt to make some lifestyle changes and start a low cholesteroldiet prior to starting medication. I would recommend to repeat his cholesterol levels in 3 months to assess improvement. 2-mild anemia. Please find out if Mr Phan Birmingham is having any mucocutaneous bleeding. If he denies any bleeding, I recommend a repeat CBC in 3 months and to keep his scheduled follow up appointmentwith me. documented in this encounter Plan of Treatment Not on file documented as of this encounter Visit Diagnoses Not on filedocumented in this encounter Additional Health Concerns Assessment Noted Time PHQ-9 Depression Total Score: 0 12/11/19 25 2:43 PM EDT documented as of this encounter Care Teams Site Coordinator Relationship Specialty Start Date End Date Kavin Graham MD [address] [place] [id number] PCP - General Internal Medicine 09/17/20 documented as of this encounter
--- OUTSIDE RECORDS SUMMARY | 2025-02-06 09:03 | XMS_ITS | Encounter Summary ---
Author Organization [employer] Address [address] [facility] 7 [place] [address] Care Team Providers Care Python Django Developer Name Role Phone Kavin Graham MD Primary Care Provider [phone] Reason for Visit * Reason Onset Date Comments Nurse Triage 02/06/2025 Encounter Details Date Type Department Care Team ([facility] st Contact Info) Description 02/06/2025 Telephone [facility] MEDICINE [address] [place] [address] Kavin Graham MD [address] [facility] [place] [address] Nurse Triage Social History Tobacco Use Types Packs/Day Years [...] with others, in a hotel, in a alf, living outside on the street, on a [...] encounter Miscellaneous Notes * Telephone Encounter - Sharon Kiran - 02/06/2025 8:37 AM EST Symptom: Rash or Redness on One Body Area Only Outcome: Schedule an urgent appointment (within 4 hours) or talk to a nurse or provider soon Reason: Fast-spreading redness The caller accepted this outcome. PCP DR. Graham documented in this encounter Plan of Treatment Not on file documented as of this encounter Visit Diagnoses Not on filedocumented in this encounter Additional Health Concerns Assessment Noted Time PHQ-9 Depression Total Score: 0 12/11/19 25 2:43 PM EDT documented as of this encounter Care Teams Python Django Developer Relationship Specialty Start Date End Date Kavin Graham MD [address] [place] [id number] PCP - General Internal Medicine 09/17/20 documented as of this encounter
--- OUTSIDE RECORDS SUMMARY | 2025-02-06 09:03 | XMS_ITS | Clinical Summary ---
Author Organization [employer] Address [address] [facility] 7[address] [place] [address] Care Team Providers Care Clinical Laboratory Aides Teacher Name Role Phone Kavin Graham MD Primary Care Provider [phone] Allergies Active Allergy Reactions Criticality Noted Date Comments Aspirin 12/18/2014 Medications Blood Pressure kitIndications:El evated blood pressure reading 1 Units in the morning. 1 kit 3 Active cetirizine (ZyrTEC) 10 MG tabletIndications :Seasonal allergies Take 1 tablet (10 mg) by mouth Once per day. 30 tablet 11 4 Active Diclofenac Sodium 1 % gelIndications:Ar thralgia of both hands TO APPLY TO THE AFFECTED AREA 3 TIMES A DAY 100 g 4 Active amLODIPine (Norvasc) 10 MG tabletIndications :Hypertension, unspecified type TAKE 1 TABLET BY MOUTH EVERY DAY IN THE MORNING 90 tablet 1 5 Active hydrocortisone (Anusol-HC) 2.5 % rectal creamIndications: Bleeding hemorrhoid Insert into the rectum 2 times daily. 28 g 2 5 Active Melatonin 10 MG capsuleIndication s:Other insomnia TAKE 1 CAPSULE BY MOUTH EVERYDAY AT BEDTIME 90 capsule 1 5 Active chlorthalidone (Hygroton) 25 MG tabletIndications :Primary hypertension Take 1 tablet (25 mg) by mouth Once per day. 90 tablet 5 Active nystatin (Nystop) 918523 UNIT/GM powderIndications :Toe web intertrigo Apply topically 2 times daily. 60 g 5 12/11/19 26 Active Active Problems Problem Noted Date Diagnosed Date 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 12/10/2024 Hypertension 03/16/2023 Gastroesophageal reflux disease 05/12/2022 Tenesmus 05/12/2022 Lower abdominal pain 05/12/2022 Assessment & Plan (05/12/2022 8:47 PM EST): Chronic abdominal pain now with tenesmus. Discussed importance w/ compliance of fup with his PCP. Broad differential, will start with labs, Hyperactive bowel movements. Reports prior hx of needing EGDs in [facility] for persistent GERD despite PPI tx. [...] Encounters Date Type Department Care Team Description 02/06/2025 Telephone [facility] [address] [place], [place] [phone] Kavin Graham MD Nurse Triage 02/05/2025 Results Follow-Up [facility] [address] [place] [address] Kavin Graham MD CBC auto differential, Comprehensive Metabolic Panel, Lipid Panel, Standard, Additional followed-up results: 5 02/05/2025 Orders Only [facility] [address] [place] [address] Kavin Graham MD Hypercholesterolemia (Primary Dx) 12/27/2024 Patient Outreach [facility] [address] [place] [phone] Romain Rasmussen Recovery Supports 12/10/2024 2:45 PM EDT Office Visit [facility] [address] [place] [address] Kavin Graham MD 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 (Primary Dx); Annual physical exam; Bleeding hemorrhoid; Other insomnia; Primary hypertension; Dietary counseling; Exercise counseling; Bilateral impacted cerumen; Toe web intertrigo; Umbilical hernia without obstruction and without gangrene; Varicocele 12/10/2024 Travel 12/09/2024 Telephone [facility] [address] [place] [address] Kavin Graham MD Chart Prep 12/09/2024 Refill [facility] [address] [place] [address] Kavin Graham MD Primary hypertension 12/03/2024 Travel 11/27/2024 Telephone [facility] [address] [place] [address] Kavin Graham MD Appointment Request 11/27/2024 Telephone [facility] [address] [place] [address] Kavin Graham MD No Show 11/26/2024 Telephone [facility] [address] [place] [address] Kaivn Graham MD chart prep 11/21/2024 Patient Outreach [facility] [address] [place] [phone] Kavin Graham MD Care Coordination (CHW outreach for SDOH housing search-referral completed ) 11/20/2024 Patient Outreach [facility] [address] [place] [phone] Kavin Graham MD Pre-visit Planning (SDOH screening positive and Tobacco screening negative) 11/20/2024 Travel from Last 3 Months Immunizations Immunization Administration [...] with others, in a hotel, in a long term, living outside on the street, on a [...] (1 - Male 3-dos e series) 12/23/1994 Disability Screening 06/17/2025 06/17/2024 Influenza Vaccine (#1) 2025 , 03/02/2015, 02/03/2012 Postponed from 12/02/2024 (Patient Refused) SDOH Screening 11/20/2025 11/20/2024 Alcohol/Substance Use Screening 12/10/2025 12/10/2024 COVID-19 Vaccine (3 - 2024-2 6 season) 2025 02/13/2021, 01/16/2021 Postponed from 12/02/2024 (Patient Refused) Depression Screening 12/10/2025 12/10/2024, 12/10/2024 Tobacco Screening 12/10/2025 12/10/2024 Zoster Vaccines (1 of 2) 12/23/2029 Lipid Panel 02/04/2030 02/04/2025, 11/23/2023, 05/27/2022 DTaP/Tdap/Td Vaccines (3 - T d or Tdap) 05/16/2030 05/16/2020, 12/09/2016, 05/03/2011 Colonoscopy 08/14/2034 Colorectal Cancer Screening 08/14/2034 RSV Patients and Patients Aged 60 years or older (1 - 1-dose 75+ series) 12/23/2054 Hepatitis B Vaccines Completed 06/18/2017, 01/16/2017, 12/17/2016 Hepatitis A Vaccines Aged Out 06/19/2017, 12/17/2016 No longer eligible based on patient's age to complete this topic HIV Screening Completed 02/04/2025, 11/23/2023 Hepatitis C Screening Completed 02/04/2025 HIB Vaccines Aged Out No longer eligi [...] Procedure Name Priority Date/Time Associated Diagnosis Comments URINALYSIS WITH REFLEX MICROSCOPIC Routine 02/04/2025 11:48 AM EST Annual physical exam RPR (MONITOR) W/REFL TITER Routine 02/04/2025 11:41 AM EST Annual physical exam HEPATITIS C AB W/REFL TO HCV RNA, QN, PCR Routine 02/04/2025 11:41 AM EST Annual physical exam HIV 1/2 ANTIGEN/ANTIBODY, FOURTH GENERATION W/RFL Routine 02/04/2025 11:41 AM EST Annual physical exam TSH W/REFLEX TO FT4 Routine 02/04/2025 1 1:41 AM EST Annual physical exam LIPID PANEL, STANDARD Routine 02/04/2025 11:41 AM EST Annual physical exam COMPREHENSIVE METABOLIC PANEL Routine 02/04/2025 11:41 AM EST Annual physical exam CBC WITH AUTO DIFFERENTIAL Routine 02/04/2025 11:41 AM EST Annual physical exam from Last 3 Months Results * Urinalysis w/reflex microscopic (02/04/2025 11:48 AM EST) Color Urine Yellow [facility] Appearance Urine Clear [facility] PH 7.5 5.0 - 9.0 [facility] Glucose Urine UA Negative Negative mg/dL [facility] Urine Blood Negative Negative [facility] Specific [place] - Urine 1.015 1.005 - 1.025 [facility] Urine Protein Negative Neg-Trace mg/dL [facility] Urine Ketones Negative Negative mg/dL [facility] Nitrite Urine Negative Negative [facility] Leukocyte Esterase Urine Negative Negative [facility] Urine (Urine, Random) 02/04/2025 11:48 AM EST 02/04/2025 2:08 PM EST Narrative [facility] - 02/04/2025 2:20 PM EST [id number], Clean Catch us Kavin Graham MD LAB URINE ORDERABLES Final Result [facility] [address] [place] [address] [phone] * TSH with Reflex to Free T4 (02/04/2025 11:41 AM EST) TSH reflex Free T4 2.06 0.32 - 4.0 uIU/mL [facility] Blood Venous blood specimen / Unknown 02/04/2025 11:41 AM EST 02/04/2025 2:12 PM EST us Kavin Graham MD LAB BLOOD ORDERABLES Final Result [facility] [address] [place] [address] [phone] * (ABNORMAL) CBC auto differential (02/04/2025 11:41 AM EST) White Blood Count 5.8 4.8 - 10.8 X10*3/uL [facility] Red Blood Count 4.96 4.60 - 5.80 X10*6/uL [facility] Hemoglobin 13.7(L) 14.0 - 18.0 g/dl [facility] Hematocrit 40.6(L) 42.0 - 52.0 % [facility] Mean Corpuscular Volume 81.9 80.0 - 98.0 fL [facility] Mean Corpuscular Hemoglobin 27.6 27.0 - 33.0 pg [facility] Mean Corpuscular HGB Conc 33.7 31.0 - 36.0 g/dl [facility] Red Cell Distribution Width 14.6 11.0 - 16.0 % [facility] Platelet Count 264 160 - 400 X10*3/uL [facility] Mean Platelet Volume 10.1 9.4 - 12.4 fL [facility] Neutrophils Percent Auto 53.8 45 - 73 % [facility] Imm Gran Pct Auto 0.3 0.0 - 0.4 % [facility] Lymphocytes Percent Auto 30.5 20 - 40 % [facility] Monocytes Percent Auto 10.6 2 - 11 % [facility] Eosinophils Percent Auto 3.8 0 - 4 % [facility] Basophils Percent Auto 1.0 0 - 2 % [facility] NRBC Pct Auto 0.0 0.0 - 0.2 /100WBC [facility] Neutrophils Absolute Auto 3.1 2.0 - 8.3 x10*3/uL [facility] Imm Gran Abs Auto 0.02 0.00 - 0.03 X10*3/uL [facility] Lymphocytes Absolute Auto 1.8 1.2 - 4.9 X10*3/uL [facility] Monocytes Absolute Auto 0.6 0.1 - 1.2 X10*3/uL [facility] Eosinophils Absolute Auto 0.2 0.0 - 0.4 X10*3/uL [facility] Basophils Absolute Auto 0.1 0.0 - 0.2 X10*3/uL [facility] NRBC Abs Auto 0.000 0.0 - 0.012 X10*3/uL [facility] Blood Venous blood specimen / Unknown 02/04/2025 11:41 AM EST 02/04/2025 2:09 PM EST Kavin Graham MD LAB BLOOD ORDERABLES Final Result Performing Organization Address [facility] Co de Phone Number [facility] [address] [place] [phone] * Hepatitis C Antibody with Reflex to HCV, RNA, Quantitative, Real-Time PCR (02/04/2025 11:41 AM EST) Hepatitis C Antibody Nonreactive Nonreactive [facility] Comment:Antibodies to HCV no t detected; does not exclude early acuteHCV infection. Blood Venous blood specimen / Unknown 02/04/2025 11:41 AM EST 02/04/2025 2:09 PM EST us Kavin Graham MD LAB BLOOD ORDERABLES Final Result Performing Organization Address [facility] Co de Phone Number [facility] [address] [place] [phone] * RPR (Monitor) with Reflex to??Titer (02/04/2025 11:41 AM EST) RPR (Monitor) w/Refl Titer NON-REACTI VE NON-REACT MEHRAN [facility] Comment:THIS TEST WAS PERFOR MED AT:[address] [place] [id number] FRANCISCO MD Rapid Plasma Reagin Ab Titer TNP [facility] Blood Venous blood specimen / Unknown 02/04/2025 11:41 AM EST 02/04/2025 2:12 PM EST us Kavin Graham MD LAB BLOOD ORDERABLES Final Result Performing Organization Address City/[facility]/ZIP Co de Phone Number [facility] [address] [place] [address] [phone] * HIV-1/2 Antigen and Antibodies, Fourth Generation, with Reflexes (02/04/2025 11:41 AM EST) HIV AB/AG Nonreactive Nonreactive [facility] Comment:HIV-1 p24 Ag and/or HIV-1/HIV-2 Ab not detected.A test result that is nonreactive does not exclude thepossibility of exposure to or infection with HIV-1 and/orHIV-2. Nonreactive results in this assay for individualswith prior exposure to HIV-1 and/or HIV-2 may be due toantigen and antibody levels that are below the limit ofdetection of this assay.The [employer] HIV Ag/Ab Combo assay result andsupplemental assay results should be interpreted inconjunction with the patient's clinical presentation,history and other laboratory results. If the results areinconsistent with clinical evidence, additional testing issuggested to confirm the result. Blood Venous blood specimen / Unknown 02/04/2025 11:41 AM EST 02/04/2025 2:09 PM EST us Kavin Graham MD LAB BLOOD ORDERABLES Final Result Performing Organization Address City/[facility]/ZIP Co de Phone Number [facility] [address] [place] [address] [phone] * (ABNORMAL) Lipid Panel, Standard (02/04/2025 11:41 AM EST) Triglycerides 187(H) <150 mg/dL [facility] Comment:Desirable Triglyceri de: less than 150 mg/dLBorderline High Triglyceride 150-199 mg/dLHigh Triglyceride: 200-499 mg/dLVery High Triglyceride: greater than or equal to 5OO mg/dL Cholesterol 239(H) <200 mg/dL [facility] Comment:Desirable Cholestero l: less than 200 mg/dLBorderline High Cholesterol: 200-239 mg/dLHigh Cholesterol: greater than 239 mg/dL LDL Cholesterol Calculated 160(H) <100 mg/dL [facility] Comment:Desirable LDL: less than 100 mg/dLNear Optimal/Above Optimal LDL: 110- 129 mg/dLBorderline High LDL: 130-159 mg/dLHigh LDL: 160-189 mg/dLVery High LDL: greater than or equal to 190 mg/dL HDL Cholesterol 42 >40 mg/dL [facility] Comment:Desirable HDL: great er than 40 mg/dL Note: This HDL assay may give artificially low results in patients with liver disease. Blood Venous blood specimen / Unknown 02/04/2025 11:41 AM EST 02/04/2025 2:12 PM EST us Kavin Graham MD LAB BLOOD ORDERABLES Final Result [facility] [address] [place] [phone] * Comprehensive Metabolic Panel (02/04/2025 11:41 AM EST) Sodium 140 135 - 145 mmol/L [facility] Potassium 3.5 3.3 - 5.1 mmol/L [facility] Chloride 105 96 - 108 mmol/L [facility] Carbon Dioxide 26 22 - 29 mmol/L [facility] Anion Gap 13 12 - 20 [facility] Urea Nitrogen (BUN) 13 9 - 16 mg/dL [facility] Creatinine, Serum 1.00 0.5 - 1.4 mg/dL [facility] Estimated Glomerular Filt Rate >60 [facility] Comment:Chronic Kidney Disea se: Estimated GFR < 60 mL/min/1.77x4Vdxhja Kidney Disease: Estimated GFR < 15 mL/min/1.73m2 Glucose 98 60 - 115 mg/dL [facility] Calcium 9.3 8.4 - 10.2 mg/dL [facility] Bilirubin, Total 0.6 0.0 - 1.0 mg/dL [facility] Aspartate Amino Transferase 33 5 - 37 U/L [facility] Alanine Aminotransferase 37 0 - 40 U/L [facility] Total Protein 7.9 6.5 - 8.0 g/dL [facility] Albumin Level 4.9 3.5 - 5.0 g/dL [facility] Alkaline Phosphatase 63 39 - 117 U/L [facility] Blood Venous blood specimen / Unknown 02/04/2025 11:41 AM EST 02/04/2025 2:12 PM EST Kavin Graham MD LAB BLOOD ORDERABLES Final Result Performing Organization Address City/State/[facility] Co de Phone Number [facility] [address] [place] [address] [phone] from Last 3 Months Insurance [facility] [id number] RAUDEL Fuentes [id number] RAUDEL Fuentes [id number] Care Teams Clinical Laboratory Aides Teacher Relationship Specialty Start Date End Date Kavin Graham MD [address] [place] [address] RAUDEL Fuentes [phone] PCP - General Internal Medicine 09/17/20
--- OUTSIDE RECORDS SUMMARY | 2025-02-06 09:03 | XMS_ITS | Encounter Summary ---
Author Organization [employer] Address [address] [facility] 7t [place] [address] Care Team Providers Care Absorption And Adsorption Engineer Name Role Phone Kavin Graham MD Primary Care Provider [phone] Encounter Details Date Type Department Care Team (Latest Contact Info) Description 02/05/2025 Orders Only [facility] [address] [place] [address] Kavin Graham MD [address] [place] [address] Hypercholesterolemia (Primary Dx) Social History Tobacco Use Types [...] of this encounter Plan of Treatment Scheduled Orders Name Type Priority Associated Diagnoses Orde r Schedule Lipid Panel, Standard Lab Routine Hypercholesterolemia Expected: 02/05/2025 (Approximate), Expires: 02/05/2026 documented as of this encounter Visit Diagnoses Diagnosis Hypercholesterolemia- Primary Pure hypercholesterolemia documented in this encounter Additional Health Concerns Assessment Noted Time PHQ-9 Depression Total Score: 0 12/11/19 25 2:43 PM EDT documented as of this encounter Care Teams Absorption And Adsorption Engineer Relationship Specialty Start Date End Date Kavin Graham MD [address] [place] [phone] PCP - General Internal Medicine 09/17/20 documented as of this encounter
--- NOTE | 2025-03-07 09:37 | HO.ANESPROP2 ---
Documented by User: Eboni Louis NP 03/07/25 09:38 HPI - Anesthesia Eval Consult details Narrative: 44yo M for Repair Hernia Umbilical Reducible with possible mesh PMFSH Active Problems Active Problems: All Active Problems Umbilical hernia (Acute) Garcia esophagus (Acute) Hemorrhoids that prolapse with straining, but retract spontaneously (Acute) Past Medical History Medical History Umbilical hernia Insomnia Seasonal allergies GERD (gastroesophageal reflux disease) Constipation Hemorrhoids that prolapse with straining, but retract spontaneously HTN (hypertension) Family History Family History Maternal Uncle Stomach cancer Paternal Grandfather Colon cancer Family history of problems with anesthesia: No Surgical History Surgical History H/O colonoscopy History of esophagogastroduodenoscopy (EGD) Hx of brain surgery History of cholecystectomy History of Problems with Anesthesia: No Social History Social History Household Members Other:: mother Housing: Apartment Are you a primary clinical care leader to a significant other at home: No Do you presently have visiting nurse or other home services: No Patient Tobacco Use Status: Former Tobacco user Tobacco use type: Cigarette Use of substances other than those prescribed or required for medical reasons: No Advance Directives: No Advance Directives Information Provided: Yes Meds Allergies Allergy/AdvReac Type Severity Reaction Status Date / Time No Known Allergies Allergy Verified 03/11/25 07:02 Home Medications ?Medication ?Instructions ?Recorded ?Confirmed ?Last Taken ?Type cetirizine 10 mg tablet 10 mg PO QAM 10/10/22 03/11/25 03/10/25 History chlorthalidone 25 mg tablet 25 mg PO QAM 10/10/22 03/11/25 08/14/24 History dicyclomine 10 mg capsule 10 mg PO QID 10/10/22 03/11/25 Unknown History melatonin 10 mg capsule 10 mg PO BEDTIME PRN Insomnia 04/01/24 03/11/25 Unknown History amlodipine 10 mg tablet 10 mg PO DAILY 0403/11/25 03/10/25 History Exam Pertinent Lab Results Pertinent Lab Results: Laboratory Tests 02/04/25 11:41 WBC 5.8 Hgb 13.7 L Hct 40.6 L Plt Count 264 Sodium 140 Potassium 3.5 Chloride 105 Carbon Dioxide 26 BUN 13 Creatinine 1.00 Assessment and Plan Assessment Anesthesia Assessment: Chart Reviewed Final Anesthetic Review Family History of Problems with Anesthesia: No History of Problems with Anesthesia: No Documented by User: Kyler Kat MD 03/11/25 16:20 PMF Past Medical History Medical History Umbilical hernia Insomnia Seasonal allergies GERD (gastroesophageal reflux disease) Constipation Hemorrhoids that prolapse with straining, but retract spontaneously HTN (hypertension) Family History Family History Maternal Uncle Stomach cancer Paternal Grandfather Colon cancer Surgical History Surgical History H/O colonoscopy History of esophagogastroduodenoscopy (EGD) Hx of brain surgery History of cholecystectomy Social History Social History Household Members Other:: mother Housing: Apartment Are you a primary clinical care leader to a significant other at home: No Do you presently have visiting nurse or other home services: No Patient Tobacco Use Status: Former Tobacco user Tobacco use type: Cigarette Use of substances other than those prescribed or required for medical reasons: No Advance Directives: No Advance Directives Information Provided: Yes Meds Allergies Allergy/AdvReac Type Severity Reaction Status Date / Time No Known Allergies Allergy Verified 03/11/25 07:02 Home Medications ?Medication ?Instructions ?Recorded ?Confirmed ?Last Taken ?Type cetirizine 10 mg tablet 10 mg PO QAM 10/10/22 03/11/25 03/10/25 History chlorthalidone 25 mg tablet 25 mg PO QAM 10/10/22 03/11/25 08/14/24 History dicyclomine 10 mg capsule 10 mg PO QID 10/10/22 03/11/25 Unknown History melatonin 10 mg capsule 10 mg PO BEDTIME PRN Insomnia 04/01/24 03/11/25 Unknown History amlodipine 10 mg tablet 10 mg PO DAILY 07/05/24 03/11/25 03/10/25 History Assessment and Plan Assessment Anesthesia Assessment: Anesthesia Plan Discussed Final Anesthetic Review NPO: Yes ASA Class: II Final Preanesthetic Review: No Changes in Pt Med Stat, Meds/Allgs Chart Reviewed, Consent Obtained/Reviewed and Anes Risks/Benef Reviewed Patient Risk: Low Procedure Risk: Low Anesthetic Plan Anesthetic Plan: GA Disposition: Standard PACU
[2025-03-07 11:31] VITALS: BMI 32.9
[2025-03-11 07:11] VITALS: BMI 32.6
[2025-03-11 07:34] VITALS: BP 130/88; PULSE 62; RESP 18; TEMP 36.6; O2SAT 98
[2025-03-11] MEDS: Lactated Ringers 1,000 ML 100 ML IVCONT (07:48)
--- NOTE | 2025-03-11 08:30 | MHC.SHP ---
Pre-Procedural Eval Section A - 24 Hr Update-Section A only Date of Service: 03/11/25 Section B - Complete if H&P > 30 days Chief Complaint: Umbilical hernia without obstruction or gangrene Details of Present Illness: his CT scan shows a fatcontaining umbilical hernia and possibly a small supraumbilical hernia Relevant Social History: None Present Medications: see Short Stay Collaborative assessment Medical History: Significant History (HTN, high BMI) Allergies: Allergies Allergy/AdvReac Type Severity Reaction Status Date / Time No Known Allergies Allergy Verified 03/11/25 07:02 Review of Systems Sugical H&P ROS: Negative: Constitution, Cardiovascular and Respiratory Exam Surgical H&P Exam: Normal: Heart and Normal: Lungs and Significant Findings: Abdomen (umbilical hernia, poss. supraumbilical hernia) Plan Diagnosis/Plan: Unchanged I have reviewed the history and physical and performed a pertinent physical examination on my patient. No changes have occurred unless specified. Time Spent With Patient Time: Total time managing care of this patient today ____ minutes.
--- NOTE | 2025-03-11 09:40 | W.PM.OPN ---
Operative Note Operative Note Date of Service: 03/11/25 Narrative: Preop diagnosis: Umbilical hernia and supraumbilical hernia, both chronically incarcerated, fat containing Postop diagnosis: The same Procedure: Repair of umbilical hernia, and supraumbilical hernia; no mesh was used Surgeon: Kwan Brock MD assistant director of residence life: LEATHA Awan The patient is a 44-year-old male with note of an umbilical hernia and supraumbilical hernia, both fat containing and incarcerated. He understood the technique of the planned procedure. He was aware of the risks, benefits, and alternatives He was brought to the operating room and placed supine under general anesthesia via laryngeal mask airway. The abdomen was prepped and draped in the usual sterile fashion. A surgical time-out was done. The patient received cefazolin 2 g IV preoperatively I infiltrated the planned line of incision in the infraumbilical margin as well as on the supraumbilical area with lidocaine 1%. I made a curvilinear transverse infraumbilical incision with a blade 15. This carried down sharply with electrocautery and Metzenbaum scissors through the full-thickness of the skin and subcutaneous fat until I was able to visualize the hernia. This was fat containing. I sharply dissected the hernia off of the rest of the subcutaneous layer as well as the umbilicus until was able to define the fascial defect. I had to divided adhesions tethering the hernia to the fascial edges with Metzenbaum scissors until was able to reduce this completely through the defect. The defect was very small and measured about 7 mm. I applied a Marcel clamp the fascia. Because of the small defect, I did not use a mesh. I closed this with a [id number] Maxon 1 stitch I then proceeded to make an incision on the skin overlying the supraumbilical hernia with a blade 15. This carried down with electrocautery through the full-thickness of the skin and thick subcutaneous fat until I was able to visualize the hernia. I sharply dissected the hernia which was all fat containing down to the fascial edge. I divided adhesions tethering this to the fascial edge until was able to reduce this through the small defect. I applied a Marcel clamp on the fascia. The defect measured about 5 mm. I therefore did not use a mesh. I closed this defect with a [id number] Maxon 1 stitch We then reapposed the subcutaneous layer on both incisions with Polysorb 3-0 simple sutures. Skin closure was achieved on both incisions with Polysorb 4-0 subcuticular running sutures. Both incisions were infiltrated with Marcaine 0.5% for postop analgesia. Dressings were applied and the procedure was completed. The patient tolerated the procedure well. There were no immediate complications. Initial and final counts of sponges and instruments were correct. Estimated blood loss was less than 25 cc. The patient is extubated without difficulty and transferred to the recovery room with stable vital signs.
[2025-03-11 09:48] VITALS: BP 128/87; PULSE 78; RESP 15; TEMP 36.6; O2SAT 98
[2025-03-11 09:50] VITALS: BP 125/77; PULSE 82; RESP 15; O2SAT 98
[2025-03-11 09:55] VITALS: BP 116/68; PULSE 80; RESP 15; O2SAT 98
[2025-03-11 10:00] VITALS: BP 121/72; PULSE 76; RESP 15; O2SAT 98
[2025-03-11 10:15] VITALS: BP 117/88; PULSE 80; RESP 15; TEMP 36.6; O2SAT 98
== END 2025-03-11 10:56 | disposition home or self-care (01) ==
PROVIDERS: PCP Internal Medicine; Visit Provider Surgery
PROC: (CPT 49592; principal; 2025-03-11 08:40)
DX: K42.9 Umbilical hernia without obstruction or gangrene (principal); K43.6 Other and unspecified ventral hernia with obstruction, without gangrene; K21.9 Gastro-esophageal reflux disease without esophagitis; I10 Essential (primary) hypertension; K59.00 Constipation, unspecified; K64.8 Other hemorrhoids; J30.2 Other seasonal allergic rhinitis; Z79.899 Other long term (current) drug therapy; Z88.6 Allergy status to analgesic agent; Z90.49 Acquired absence of other specified parts of digestive tract; Z98.890 Other specified postprocedural states; Z87.891 Personal history of nicotine dependence
CPT/HCPCS: 49592; J0690; J1100; J1885; J2003; J2405; J2704; J2795; J3010

== ENCOUNTER → 2025-03-11 06:44 | Outpatient (BNV) | payer MEDICAID, SELFPAY | PROVIDERS: PCP Internal Medicine; Visit Provider Surgery | DX: K42.0 Umbilical hernia with obstruction, without gangrene (principal) | CPT/HCPCS: 49592 ==